=== PATIENT | male | born 1950 | race Caucasian/White ===

== ENCOUNTER → 2016-08-30 | Outpatient (CLI) | payer OTHER ==
[2016-08-30 15:22] LABS: BASO % 0.7 % (0.0-1.0); EOS # 0.1 K/mm3 (0.0-0.50); EOS % 1.9 % (0.0-3.0); LARGE UNSTAINED CELL # 0.1 K/mm3 (0.0-0.4); LARGE UNSTAINED CELL % 1.3 % (0.0-4.0); LYMPH # 1.6 K/mm3 (1.5-4.5); LYMPH % 22.3 % (24.0-44.0); MEAN CORPUSCULAR HEMOGLOBIN 29.1 pg (27.0-33.0); MEAN CORPUSCULAR HGB CONC 34.1 g/dl (32.0-36.5); MEAN CORPUSCULAR VOLUME 85.3 fl (80.0-96.0); MONO # 0.4 K/mm3 (0.0-0.8); MONO % 5.3 % (0.0-5.0); NEUTROPHILS # 4.7 K/mm3 (1.8-7.7); NEUTROPHILS % 68.4 % (36.0-66.0); PLATELET COUNT, AUTOMATED 191 k/mm3 (150-450); RED CELL DISTRIBUTION WIDTH 13.3 % (11.5-14.5); WHITE BLOOD COUNT 6.8 K/mm3 (4.0-10.0)
[2016-08-30 15:59] LABS: ALBUMIN 4.2 GM/DL (3.2-5.2); ALKALINE PHOSPHATASE 111 U/L (45-117); ALT/SGPT 21 U/L (12-78); ANION GAP 13 MEQ/L (8-16); AST/SGOT 17 U/L (15-37); BILIRUBIN,TOTAL 0.6 MG/DL (0.2-1.0); BLOOD UREA NITROGEN 20 MG/DL (7-18); CALCIUM LEVEL 8.6 MG/DL (8.8-10.2); CARBON DIOXIDE LEVEL 21 MEQ/L (21-32); CHLORIDE LEVEL 104 MEQ/L (98-107); CREATININE FOR GFR 1.17 MG/DL (0.70-1.30); GLOMERULAR FILTRATION RATE > 60.0 (>49); GLUCOSE, FASTING 103 MG/DL (80-110); POTASSIUM SERUM 4.2 MEQ/L (3.5-5.1); SODIUM LEVEL 138 MEQ/L (136-145); TOTAL PROTEIN 7.2 GM/DL (6.4-8.2)
== END ==
LOC: M WUC 10:29
PROVIDERS: ATTEND Family Medicine
DX: E11.65 Type 2 diabetes mellitus with hyperglycemia (principal)

== ENCOUNTER → 2016-12-02 | Outpatient (CLI) | payer OTHER ==
[2016-12-02 16:52] LABS: ALBUMIN 4.1 GM/DL (3.2-5.2); ALBUMIN/GLOBULIN RATIO 1.24 (1.00-1.93); ALKALINE PHOSPHATASE 107 U/L (45-117); ALT/SGPT 25 U/L (12-78); ANION GAP 6 MEQ/L (8-16); AST/SGOT 17 U/L (15-37); BILIRUBIN,TOTAL 0.6 MG/DL (0.2-1.0); BLOOD UREA NITROGEN 22 MG/DL (7-18); CALCIUM LEVEL 8.7 MG/DL (8.8-10.2); CARBON DIOXIDE LEVEL 26 MEQ/L (21-32); CHLORIDE LEVEL 103 MEQ/L (98-107); CHOLESTEROL LEVEL 118 MG/DL (<200); CREATININE FOR GFR 1.23 MG/DL (0.70-1.30); GLOMERULAR FILTRATION RATE > 60.0 (>49); GLUCOSE, FASTING 154 MG/DL (80-110); POTASSIUM SERUM 4.4 MEQ/L (3.5-5.1); SODIUM LEVEL 135 MEQ/L (136-145); TOTAL PROTEIN 7.4 GM/DL (6.4-8.2); TRIGLYCERIDES LEVEL 128 MG/DL (<150)
[2016-12-02 16:59] LABS: VITAMIN B12 LEVEL 429 PG/ML (247-911)
[2016-12-02 17:34] LABS: BASO % 0.7 % (0.0-1.0); EOS # 0.1 K/mm3 (0.0-0.50); EOS % 1.4 % (0.0-3.0); LARGE UNSTAINED CELL # 0.1 K/mm3 (0.0-0.4); LYMPH # 1.4 K/mm3 (1.5-4.5); LYMPH % 19.7 % (24.0-44.0); MEAN CORPUSCULAR HEMOGLOBIN 30.2 pg (27.0-33.0); MEAN CORPUSCULAR HGB CONC 34.6 g/dl (32.0-36.5); MEAN CORPUSCULAR VOLUME 87.2 fl (80.0-96.0); MONO # 0.3 K/mm3 (0.0-0.8); MONO % 4.2 % (0.0-5.0); NEUTROPHILS # 5.2 K/mm3 (1.8-7.7); PLATELET COUNT, AUTOMATED 182 k/mm3 (150-450); RED CELL DISTRIBUTION WIDTH 14.5 % (11.5-14.5); WHITE BLOOD COUNT 7.2 K/mm3 (4.0-10.0)
== END ==
LOC: M WUC 11:48
PROVIDERS: ATTEND Family Medicine
DX: E11.65 Type 2 diabetes mellitus with hyperglycemia (principal); E78.00 Pure hypercholesterolemia, unspecified; I10 Essential (primary) hypertension; R20.2 Paresthesia of skin

== ENCOUNTER → 2017-03-03 | Outpatient (CLI) | payer OTHER ==
[2017-03-03 09:38] LABS: ANION GAP 8 MEQ/L (8-16); BLOOD UREA NITROGEN 21 MG/DL (7-18); CALCIUM LEVEL 8.2 MG/DL (8.8-10.2); CARBON DIOXIDE LEVEL 23 MEQ/L (21-32); CHLORIDE LEVEL 107 MEQ/L (98-107); GLOMERULAR FILTRATION RATE > 60.0 (>49); GLUCOSE, FASTING 144 MG/DL (80-110); POTASSIUM SERUM 4.5 MEQ/L (3.5-5.1); SODIUM LEVEL 138 MEQ/L (136-145)
== END ==
LOC: M WUC 08:07
PROVIDERS: ATTEND Physician Assistant
DX: E11.65 Type 2 diabetes mellitus with hyperglycemia (principal)

== ENCOUNTER → 2017-06-01 | Outpatient (CLI) | payer OTHER ==
[2017-06-01 12:56] LABS: ALBUMIN 3.8 GM/DL (3.2-5.2); ALBUMIN/GLOBULIN RATIO 1.23 (1.00-1.93); ALKALINE PHOSPHATASE 100 U/L (45-117); ALT/SGPT 20 U/L (12-78); ANION GAP 10 MEQ/L (8-16); AST/SGOT 14 U/L (7-37); BILIRUBIN,TOTAL 0.7 MG/DL (0.2-1.0); BLOOD UREA NITROGEN 18 MG/DL (7-18); CALCIUM LEVEL 8.6 MG/DL (8.8-10.2); CARBON DIOXIDE LEVEL 26 MEQ/L (21-32); CHLORIDE LEVEL 100 MEQ/L (98-107); CHOLESTEROL LEVEL 101 MG/DL (<200); CREATININE FOR GFR 1.24 MG/DL (0.70-1.30); GLOMERULAR FILTRATION RATE > 60.0 (>49); GLUCOSE, FASTING 195 MG/DL (80-110); POTASSIUM SERUM 4.7 MEQ/L (3.5-5.1); SODIUM LEVEL 136 MEQ/L (136-145); TOTAL PROTEIN 6.9 GM/DL (6.4-8.2); TRIGLYCERIDES LEVEL 156 MG/DL (<150)
[2017-06-01 13:00] LABS: BASO # 0.1 10^3/uL (0.0-0.2); BASO % 0.8 % (0.0-1.0); EOS # 0.2 10^3/uL (0.0-0.50); IMMATURE GRANULOCYTE % 0.6 % (0-0); LYMPH # 1.1 10^3/uL (1.5-4.5); LYMPH % 17.9 % (24.0-44.0); MEAN CORPUSCULAR HEMOGLOBIN 29.4 pg (27.0-33.0); MEAN CORPUSCULAR HGB CONC 33.8 g/dl (32.0-36.5); MONO # 0.4 10^3/uL (0.0-0.8); NEUTROPHILS # 4.5 10^3/uL (1.8-7.7); NEUTROPHILS % 71.7 % (36.0-66.0); PLATELET COUNT, AUTOMATED 175 10^3/uL (150-450); RED CELL DISTRIBUTION WIDTH 13.1 % (11.5-14.5); WHITE BLOOD COUNT 6.3 10^3/uL (4.0-10.0)
== END ==
LOC: M WUC 08:16
PROVIDERS: ATTEND Family Medicine
DX: E11.9 Type 2 diabetes mellitus without complications (principal); E78.00 Pure hypercholesterolemia, unspecified

== ENCOUNTER → 2017-08-29 | Outpatient (CLI) | payer OTHER ==
[2017-08-29 12:36] LABS: ANION GAP 9 MEQ/L (8-16); BLOOD UREA NITROGEN 20 MG/DL (7-18); CALCIUM LEVEL 8.7 MG/DL (8.8-10.2); CARBON DIOXIDE LEVEL 24 MEQ/L (21-32); CHLORIDE LEVEL 103 MEQ/L (98-107); CREATININE FOR GFR 1.07 MG/DL (0.70-1.30); GLOMERULAR FILTRATION RATE > 60.0 (>49); GLUCOSE, FASTING 152 MG/DL (70-100); POTASSIUM SERUM 4.8 MEQ/L (3.5-5.1); SODIUM LEVEL 136 MEQ/L (136-145)
[2017-08-29 12:55] LABS: ESTIMATED AVERAGE GLUCOSE 146 MG/DL (60-110); HEMOGLOBIN A1c 6.7 %
== END ==
LOC: M WUC 08:43
DX: E11.65 Type 2 diabetes mellitus with hyperglycemia (principal)
CPT/HCPCS: 83036

== ENCOUNTER → 2018-03-12 | Outpatient (CLI) | payer MEDICARE, OTHER ==
[2018-03-12 22:28] LABS: ALBUMIN 3.9 GM/DL (3.2-5.2); ALKALINE PHOSPHATASE 106 U/L (45-117); ALT/SGPT 24 U/L (12-78); ANION GAP 12 MEQ/L (8-16); AST/SGOT 15 U/L (7-37); BILIRUBIN,TOTAL 0.7 MG/DL (0.2-1.0); BLOOD UREA NITROGEN 21 MG/DL (7-18); CALCIUM LEVEL 8.9 MG/DL (8.8-10.2); CARBON DIOXIDE LEVEL 21 MEQ/L (21-32); CHLORIDE LEVEL 102 MEQ/L (98-107); CREATININE FOR GFR 1.15 MG/DL (0.70-1.30); FREE T4 0.98 NG/DL (0.76-1.46); GLOMERULAR FILTRATION RATE > 60.0 (>49); GLUCOSE, FASTING 110 MG/DL (70-100); POTASSIUM SERUM 4.9 MEQ/L (3.5-5.1); SODIUM LEVEL 135 MEQ/L (136-145); TOTAL PROTEIN 7.1 GM/DL (6.4-8.2); TRIGLYCERIDES LEVEL 136 MG/DL (<150)
[2018-03-12 23:32] LABS: CHOLESTEROL LEVEL 114 MG/DL (<200)
[2018-03-12 23:33] LABS: ALBUMIN/GLOBULIN RATIO 1.22 (1.00-1.93); CHOLESTEROL RISK RATIO 3.562 (<5); HDL CHOLESTEROL 32 MG/DL (>40); LDL CHOLESTEROL 54.8 MG/DL (<100); NON-HDL-C 82 MG/DL
[2018-03-13 01:33] LABS: ESTIMATED AVERAGE GLUCOSE 140 MG/DL (60-110); HEMOGLOBIN A1c 6.5 %
== END ==
LOC: M WUC 08:44
DX: E66.01 Morbid (severe) obesity due to excess calories (principal); E78.00 Pure hypercholesterolemia, unspecified; Z79.899 Other long term (current) drug therapy
CPT/HCPCS: 84443

== ENCOUNTER → 2018-06-08 | Outpatient (CLI) | payer MEDICARE, OTHER ==
[2018-06-08 10:57] LABS: BASO # 0.1 10^3/uL (0.0-0.2); BASO % 0.7 % (0.0-1.0); EOS # 0.2 10^3/uL (0.0-0.50); EOS % 2.2 % (0.0-3.0); HEMATOCRIT 49.3 % (42.0-52.0); IMMATURE GRANULOCYTE % 0.4 % (0-3.0); LYMPH # 1.3 10^3/uL (1.5-4.5); LYMPH % 15.4 % (24.0-44.0); MEAN CORPUSCULAR HEMOGLOBIN 29.6 pg (27.0-33.0); MEAN CORPUSCULAR HGB CONC 34.5 g/dl (32.0-36.5); MEAN CORPUSCULAR VOLUME 85.7 fl (80.0-96.0); MONO # 0.5 10^3/uL (0.0-0.8); MONO % 6.5 % (0.0-5.0); NEUTROPHILS # 6.1 10^3/uL (1.8-7.7); NEUTROPHILS % 74.8 % (36.0-66.0); PLATELET COUNT, AUTOMATED 170 10^3/uL (150-450); RED BLOOD COUNT 5.75 10^6/uL (4.30-6.10); RED CELL DISTRIBUTION WIDTH 12.8 % (11.5-14.5); WHITE BLOOD COUNT 8.2 10^3/uL (4.0-10.0)
[2018-06-08 11:13] LABS: ALBUMIN 3.8 GM/DL (3.2-5.2); ALBUMIN/GLOBULIN RATIO 1.19 (1.00-1.93); ALKALINE PHOSPHATASE 105 U/L (45-117); ALT/SGPT 19 U/L (12-78); ANION GAP 10 MEQ/L (8-16); AST/SGOT 13 U/L (7-37); BILIRUBIN,TOTAL 0.7 MG/DL (0.2-1.0); BLOOD UREA NITROGEN 24 MG/DL (7-18); CALCIUM LEVEL 8.3 MG/DL (8.8-10.2); CARBON DIOXIDE LEVEL 23 MEQ/L (21-32); CHLORIDE LEVEL 103 MEQ/L (98-107); CHOLESTEROL LEVEL 114 MG/DL (<200); CREATININE FOR GFR 1.19 MG/DL (0.70-1.30); FREE T4 1.07 NG/DL (0.76-1.46); GLOMERULAR FILTRATION RATE > 60.0 (>49); GLUCOSE, FASTING 141 MG/DL (70-100); HDL CHOLESTEROL 30 MG/DL (>40); LDL CHOLESTEROL 57 MG/DL (<100); NON-HDL-C 84 MG/DL; POTASSIUM SERUM 4.8 MEQ/L (3.5-5.1); SODIUM LEVEL 136 MEQ/L (136-145); TRIGLYCERIDES LEVEL 135 MG/DL (<150)
[2018-06-08 11:19] LABS: ESTIMATED AVERAGE GLUCOSE 163 MG/DL (60-110); HEMOGLOBIN A1c 7.3 %
[2018-06-08 11:41] LABS: MALB URINE SIEMENS 9.2 MG/L
[2018-06-09 14:13] LABS: PSA TOTAL 0.2 ng/mL (0.0-4.0)
== END ==
LOC: M WUC 08:43
DX: E11.9 Type 2 diabetes mellitus without complications (principal); E78.00 Pure hypercholesterolemia, unspecified; I10 Essential (primary) hypertension; F52.21 Male erectile disorder; R35.0 Frequency of micturition
CPT/HCPCS: 84443

== ENCOUNTER → 2018-09-03 | Outpatient (CLI) | payer MEDICARE, OTHER ==
[2018-09-03 10:20] LABS: HEMOGLOBIN A1c 7.2 %
[2018-09-03 10:33] LABS: BLOOD UREA NITROGEN 21 MG/DL (7-18); CALCIUM LEVEL 7.9 MG/DL (8.8-10.2); CARBON DIOXIDE LEVEL 24 MEQ/L (21-32); CHLORIDE LEVEL 104 MEQ/L (98-107); CREATININE FOR GFR 1.16 MG/DL (0.70-1.30); GLOMERULAR FILTRATION RATE > 60.0 (>49); GLUCOSE, FASTING 132 MG/DL (70-100); POTASSIUM SERUM 4.7 MEQ/L (3.5-5.1); SODIUM LEVEL 137 MEQ/L (136-145)
== END ==
LOC: M WUC 08:03
PROVIDERS: ATTEND Physician Assistant
DX: Z00.00 Encounter for general adult medical examination without abnormal findings (principal); E11.40 Type 2 diabetes mellitus with diabetic neuropathy, unspecified; Z11.59 Encounter for screening for other viral diseases
CPT/HCPCS: 36415; 80048; 83036; G0472

== ENCOUNTER → 2018-12-07 | Outpatient (CLI) | payer MEDICARE, OTHER ==
[2018-12-07 12:47] LABS: ALT/SGPT 25 U/L (12-78); BILIRUBIN,TOTAL 0.7 MG/DL (0.2-1.0); BLOOD UREA NITROGEN 31 MG/DL (7-18); CALCIUM LEVEL 8.9 MG/DL (8.8-10.2); CARBON DIOXIDE LEVEL 24 MEQ/L (21-32); CHLORIDE LEVEL 104 MEQ/L (98-107); CHOLESTEROL LEVEL 111 MG/DL (<200); CHOLESTEROL RISK RATIO 3.964 (<5); CREATININE FOR GFR 1.18 MG/DL (0.70-1.30); GLOMERULAR FILTRATION RATE > 60.0 (>49); GLUCOSE, FASTING 128 MG/DL (70-100); HDL CHOLESTEROL 28 MG/DL (>40); LDL CHOLESTEROL 57 MG/DL (<100); NON-HDL-C 83 MG/DL; POTASSIUM SERUM 4.6 MEQ/L (3.5-5.1); SODIUM LEVEL 136 MEQ/L (136-145); TOTAL PROTEIN 6.9 GM/DL (6.4-8.2); TRIGLYCERIDES LEVEL 132 MG/DL (<150)
[2018-12-07 13:27] LABS: HEMOGLOBIN A1c 7.7 %
== END ==
LOC: M WUC 08:54
PROVIDERS: ATTEND Family Medicine
DX: E11.40 Type 2 diabetes mellitus with diabetic neuropathy, unspecified (principal); I10 Essential (primary) hypertension; E78.00 Pure hypercholesterolemia, unspecified

== ENCOUNTER → 2019-03-06 | Outpatient (CLI) | payer MEDICARE, OTHER ==
[2019-03-06 13:39] LABS: BLOOD UREA NITROGEN 16 MG/DL (7-18); CARBON DIOXIDE LEVEL 24 MEQ/L (21-32); CHLORIDE LEVEL 103 MEQ/L (98-107); CREATININE FOR GFR 1.19 MG/DL (0.70-1.30); GLOMERULAR FILTRATION RATE > 60.0 (>49); GLUCOSE, FASTING 167 MG/DL (70-100); POTASSIUM SERUM 4.2 MEQ/L (3.5-5.1); SODIUM LEVEL 135 MEQ/L (136-145)
[2019-03-06 14:22] LABS: HEMOGLOBIN A1c 7.2 %
== END ==
LOC: M WUC 08:35
PROVIDERS: ATTEND Physician Assistant
DX: E11.40 Type 2 diabetes mellitus with diabetic neuropathy, unspecified (principal)

== ENCOUNTER → 2019-03-26 | Outpatient (CLI) | payer MEDICARE, OTHER ==
--- NOTE | 2019-03-26 14:32 | REP ---
Bilateral lower extremity arterial Doppler duplex ultrasound: Right lower extremity: Brachial artery peak systole: 130 mmHg. Dorsalis pedis peak systole: 150 mmHg. SALES ADVISORY MANAGER peak systole: 170 mmHg. JERONIMO: 1.25 Peak Systolic Phasicity Velocity ASSOCIATE DIRECTOR DATA & ANALYTICS 75 triphasic Profunda 69 triphasic SFA prox 83 triphasic SFA mid 69 triphasic SFA dist 73 triphasic Pop 52 triphasic BUSTER prox 55 triphasic Tib/P tr 60 triphasic SALES ADVISORY MANAGER pr 52 triphasic SALES ADVISORY MANAGER dst 73 triphasic BUSTER dst 59 triphasic Left lower extremity: Brachial artery peak systole: 135 mmHg. Dorsalis pedis peak systole: 110 mmHg. SALES ADVISORY MANAGER peak systole: 160 mmHg. JERONIMO: 1.19 Peak Systolic Phasicity Velocity ASSOCIATE DIRECTOR DATA & ANALYTICS 100 triphasic Profunda 72 triphasic SFA prox 89 triphasic SFA mid 84 triphasic SFA dist 63 triphasic Pop 68 biphasic BUSTER prox 60 triphasic Tib/P tr 67 triphasic SALES ADVISORY MANAGER pr 52 triphasic SALES ADVISORY MANAGER dst 88 triphasic BUSTER dst 43 triphasic There is no significant stenosis, however, inflow in the right leg is decreased compared to the left. The ABIs may not be accurate because of calcified vessels/diabetes. Electronically Signed by Hugo Sanchez MD 03/26/2019 02:23 P
== END ==
LOC: M RAD 12:16
PROVIDERS: ATTEND Physician Assistant
DX: E11.621 Type 2 diabetes mellitus with foot ulcer (principal); L97.522 Non-pressure chronic ulcer of other part of left foot with fat layer exposed; L97.919 Non-pressure chronic ulcer of unspecified part of right lower leg with unspecified severity; I87.331 Chronic venous hypertension (idiopathic) with ulcer and inflammation of right lower extremity

== ENCOUNTER → 2019-05-03 | Outpatient (REF) | payer MEDICARE, OTHER | LOC: M LAB REF 10:33 | PROVIDERS: ATTEND Family Medicine | DX: C44.329 Squamous cell carcinoma of skin of other parts of face (principal) ==

== ENCOUNTER → 2019-05-20 | Outpatient (CLI) | payer MEDICARE, OTHER ==
[~2019-05-20] MED LIST: ALEV220T22 PO; ASPI81TA85 PO; ATOR40TA75 PO; FARX1TAB3 PO; JANU100T PO; LISI10TA4 PO; PROT0.1O EX; RANI150T PO; TRIA37.53 PO
[2019-05-20 10:02] LABS: HEMATOCRIT 51.2 % (42.0-52.0); HEMOGLOBIN 17.4 g/dl (13.5-17.5); MEAN CORPUSCULAR HEMOGLOBIN 29.4 pg (27.0-33.0); MEAN CORPUSCULAR VOLUME 86.5 fl (80.0-96.0); PLATELET COUNT, AUTOMATED 161 10^3/uL (150-450); RED BLOOD COUNT 5.92 10^6/uL (4.30-6.10); WHITE BLOOD COUNT 9.1 10^3/uL (4.0-10.0)
--- NOTE | 2019-05-20 10:14 | REP ---
CHEST X-RAY: Two views. HISTORY: Squamous cell carcinoma of the skin. No comparison chest x-ray. FINDINGS: The lungs are symmetrically aerated and clear. The pleural angles are sharp. Heart size is normal. The aorta is calcific and tortuous. There is widening of the superior mediastinum and some narrowing of the trachea is suspected bilaterally. The trachea is not displaced. This may be thyroid enlargement or other mediastinal process. Consider chest CT study. No bony abnormality. Exam is otherwise unremarkable. IMPRESSION: Widened mediastinum question tracheal narrowing. Recommend chest CT study, preferably with IV contrast. Otherwise no acute disease. Electronically Signed by Terrance Giang MD 05/20/2019 12:45 P
[2019-05-20 10:30] LABS: BLOOD UREA NITROGEN 20 MG/DL (7-18); CARBON DIOXIDE LEVEL 22 MEQ/L (21-32); CHLORIDE LEVEL 104 MEQ/L (98-107); CREATININE FOR GFR 1.25 MG/DL (0.70-1.30); GLOMERULAR FILTRATION RATE > 60.0 (>49); GLUCOSE, FASTING 185 MG/DL (70-100); POTASSIUM SERUM 4.7 MEQ/L (3.5-5.1); SODIUM LEVEL 135 MEQ/L (136-145)
== END ==
LOC: M LAB 09:27
PROVIDERS: ATTEND Plastic Surgery Surgery of the Hand
DX: C44.329 Squamous cell carcinoma of skin of other parts of face (principal)

== ENCOUNTER 2019-05-23 10:20 | Day surgery (SDC) | payer MEDICARE, OTHER ==
[~2019-05-23] VITALS: Ht 182.9 cm; Wt 129.7 kg
[~2019-05-23 10:20] MED LIST changes: +LIDOCAINE 1% MDV 20ML VIAL SQ PRN; +LIDOCAINE 2% INJ 100 MG/5 ML SDV (FOR ANES.) As Ordered ONE; +LR 1,000 ML IV ONE; +MIDAZOLAM INJ 2 MG/2 ML VIAL (J2250) As Ordered ONE; +ONDANSETRON 4MG/2ML VIAL (J2405) As Ordered ONE; +POVIDONE-IODINE 5% OPHTH PREP SOL 30ML As Ordered ONE; +PROPOFOL 200 MG/20 ML VIAL As Ordered ONE; +ceFAZolin SOD 1 GM in D5W MINI-BAG PLUS 50 ML IV ONE; +dexameTHASONE 4 MG/ML 1ML VIAL (J1100) As Ordered ONE; +fentaNYL 100 MCG/2 ML INJECTION (J3010) As Ordered ONE
[2019-05-23] MEDS ORDERED: BACITRACIN OINT 30GM As Ordered ONE (11:11)
[2019-05-23] MEDS ORDERED: LIDOCAINE W/EPINEPHRINE 1% 20ML VIAL As Ordered ONE (11:19)
--- NOTE | 2019-05-23 12:44 | POST-OPPD ---
Postoperative Procedure Note Date Of Procedure: May 23, 2019 PREOPERATIVE DIAGNOSIS: Right episcopal malignant lesion POSTOPERATIVE DIAGNOSIS: same FINDINGS: Right episcopal malignant lesion 1x0.6cm PROCEDURE: Excision malignant lesion. SURGEON: Dr Davis PAINTING AND COATING WORKER: Dr West ANESTHESIA: Local with sedation SPECIMENS: Right episcopal lesion FS ESTIMATED BLOOD LOSS: 1 cc REPLACED: none DRAINS: none COMPLICATIONS: none POSTOPERATIVE CONDITION: stable PERRI DAVIS DO May 23, 2019 12:44
[2019-05-23 13:10] VITALS: BP 160/94
--- NOTE | 2019-05-25 14:41 | RO ---
DATE OF PROCEDURE: 05/23/2019 PREPROCEDURE DIAGNOSIS: Right temporal malignant lesion. POSTPROCEDURE DIAGNOSIS: Right temporal malignant lesion. PROCEDURE: Excision malignant lesion. SURGEON: Dr. Oma Melo. GRADES 1 THROUGH 5 TEACHER: Dr. Cline. ANESTHESIA: Local with sedation. SPECIMENS SENT: Right temporal lesion frozen section. ESTIMATED BLOOD LOSS: 1 mL. FLUID REPLACEMENT: None needed. DRAINS: None. COMPLICATIONS: FINDINGS: Right temporal malignant lesion 1 x 0.6 cm in diameter. DESCRIPTION OF PROCEDURE: This is a 68-year-old male who had a biopsy on his right uatsdin confirming squamous cell carcinoma. Patient presented to the office for a complete excision. All risks and benefits and alternatives discussed with the patient. He prefers to have the procedure done in the operating room with sedation. Informed consent was confirmed. On the day of surgery, the patient was marked for the lesion and it measured 1. X 0.6 cm right now. Then he was brought into the operating room, placed in the supine position. Preoperative antibiotics were given and sequential stockings placed on the lower calf. He was prepped and draped in the usual sterile fashion. Local anesthesia was infiltrated in the area, 1% lidocaine with epinephrine. Then the margins of 4 mm were outlined. After the numbing effect of lidocaine was insured, we made an elliptical incision horizontally oriented encompassing all of the margins. Full thickness excision was made. A suture marked 12-o'clock position at the specimen and was sent to pathology. After confirmation of clear margins was received, the edges were undermined and then we were able to close it without tension. Closure was done in layers with interrupted #4-0 Monocryl sutures and #5-0 plain gut sutures. Total incision at this point was 1.6 cm. Then Steri-Strips were applied. Patient tolerated the procedure well. He was transferred to the recovery room in stable condition, completely awake.
== END 2019-05-23 13:12 | disposition home or self-care (01) ==
LOC: M SDC 10:20
PROVIDERS: ATTEND Plastic Surgery Surgery of the Hand
DX: C44.329 Squamous cell carcinoma of skin of other parts of face (principal); E11.9 Type 2 diabetes mellitus without complications; E78.5 Hyperlipidemia, unspecified; K21.9 Gastro-esophageal reflux disease without esophagitis; G47.30 Sleep apnea, unspecified; Z79.82 Long term (current) use of aspirin; Z79.899 Other long term (current) drug therapy
CPT/HCPCS: 11641; 88305; 88331; J0690; J2250; J2405; J3010

== ENCOUNTER → 2019-06-10 | Outpatient (CLI) | payer MEDICARE, OTHER ==
[~2019-06-10] MED LIST changes: -LIDOCAINE 1% MDV 20ML VIAL SQ PRN; -LIDOCAINE 2% INJ 100 MG/5 ML SDV (FOR ANES.) As Ordered ONE; -LR 1,000 ML IV ONE; -MIDAZOLAM INJ 2 MG/2 ML VIAL (J2250) As Ordered ONE; -ONDANSETRON 4MG/2ML VIAL (J2405) As Ordered ONE; -POVIDONE-IODINE 5% OPHTH PREP SOL 30ML As Ordered ONE; -PROPOFOL 200 MG/20 ML VIAL As Ordered ONE; -ceFAZolin SOD 1 GM in D5W MINI-BAG PLUS 50 ML IV ONE; -dexameTHASONE 4 MG/ML 1ML VIAL (J1100) As Ordered ONE; -fentaNYL 100 MCG/2 ML INJECTION (J3010) As Ordered ONE
[2019-06-10 09:20] LABS: BASO # 0.1 10^3/uL (0.0-0.2); BASO % 0.7 % (0.0-1.0); EOS # 0.2 10^3/uL (0.0-0.5); EOS % 2.3 % (0.0-3.0); HEMATOCRIT 50.2 % (42.0-52.0); LYMPH # 1.4 10^3/uL (1.5-5.0); LYMPH % 18.7 % (24.0-44.0); MEAN CORPUSCULAR HEMOGLOBIN 29.3 pg (27.0-33.0); MEAN CORPUSCULAR HGB CONC 33.9 g/dl (32.0-36.5); MEAN CORPUSCULAR VOLUME 86.4 fl (80.0-96.0); MONO # 0.4 10^3/uL (0.0-0.8); MONO % 5.7 % (0.0-5.0); NEUTROPHILS # 5.3 10^3/uL (1.5-8.5); NEUTROPHILS % 72.2 % (36.0-66.0); PLATELET COUNT, AUTOMATED 162 10^3/uL (150-450); RED BLOOD COUNT 5.81 10^6/uL (4.30-6.10); WHITE BLOOD COUNT 7.3 10^3/uL (4.0-10.0)
[2019-06-10 09:53] LABS: ALBUMIN 3.9 GM/DL (3.2-5.2); ALT/SGPT 24 U/L (12-78); BILIRUBIN,TOTAL 0.7 MG/DL (0.2-1.0); BLOOD UREA NITROGEN 16 MG/DL (7-18); CALCIUM LEVEL 8.7 MG/DL (8.8-10.2); CARBON DIOXIDE LEVEL 24 MEQ/L (21-32); CHLORIDE LEVEL 104 MEQ/L (98-107); CHOLESTEROL LEVEL 117 MG/DL (<200); CHOLESTEROL RISK RATIO 3.656 (<5); CREATININE FOR GFR 1.19 MG/DL (0.70-1.30); GLOMERULAR FILTRATION RATE > 60.0 (>49); GLUCOSE, FASTING 176 MG/DL (70-100); HDL CHOLESTEROL 32 MG/DL (>40); LDL CHOLESTEROL 64 MG/DL (<100); NON-HDL-C 85 MG/DL; POTASSIUM SERUM 4.6 MEQ/L (3.5-5.1); SODIUM LEVEL 135 MEQ/L (136-145); TOTAL PROTEIN 7.2 GM/DL (6.4-8.2); TRIGLYCERIDES LEVEL 103 MG/DL (<150)
[2019-06-10 10:01] LABS: MALB URINE SIEMENS 10.1 MG/L; MAU/CREAT RATIO 7.5 MCG/MG (0.0-30.0)
[2019-06-10 10:51] LABS: HEMOGLOBIN A1c 8.2 %
[2019-06-11 14:07] LABS: PSA TOTAL 0.2 ng/mL (0.0-4.0)
== END ==
LOC: M WUC 08:28
PROVIDERS: ATTEND Family Medicine
DX: E11.40 Type 2 diabetes mellitus with diabetic neuropathy, unspecified (principal); E78.00 Pure hypercholesterolemia, unspecified; F52.21 Male erectile disorder

== ENCOUNTER → 2019-09-10 | Outpatient (CLI) | payer MEDICARE, OTHER ==
[2019-09-10 12:51] LABS: BLOOD UREA NITROGEN 27 MG/DL (7-18); CALCIUM LEVEL 8.5 MG/DL (8.8-10.2); CARBON DIOXIDE LEVEL 22 MEQ/L (21-32); CHLORIDE LEVEL 102 MEQ/L (98-107); CREATININE FOR GFR 1.19 MG/DL (0.70-1.30); GLOMERULAR FILTRATION RATE > 60.0 (>49); GLUCOSE, FASTING 201 MG/DL (70-100); POTASSIUM SERUM 4.5 MEQ/L (3.5-5.1); SODIUM LEVEL 132 MEQ/L (136-145)
[2019-09-10 19:59] LABS: HEMOGLOBIN A1c 8.3 %
== END ==
LOC: M WUC 08:52
PROVIDERS: ATTEND Physician Assistant
DX: E11.9 Type 2 diabetes mellitus without complications (principal)

== ENCOUNTER → 2019-12-13 | Outpatient (CLI) | payer MEDICARE, OTHER ==
[2019-12-13 11:50] LABS: BASO # 0.1 10^3/uL (0.0-0.2); BASO % 0.8 % (0.0-1.0); EOS # 0.1 10^3/uL (0.0-0.5); EOS % 1.7 % (0.0-3.0); HEMATOCRIT 49.3 % (42.0-52.0); HEMOGLOBIN 16.6 g/dl (13.5-17.5); LYMPH # 1.5 10^3/uL (1.5-5.0); LYMPH % 19.4 % (24.0-44.0); MEAN CORPUSCULAR HGB CONC 33.7 g/dl (32.0-36.5); MONO # 0.5 10^3/uL (0.0-0.8); MONO % 5.8 % (0.0-5.0); NEUTROPHILS # 5.6 10^3/uL (1.5-8.5); NEUTROPHILS % 71.7 % (36.0-66.0); PLATELET COUNT, AUTOMATED 162 10^3/uL (150-450); RED BLOOD COUNT 5.73 10^6/uL (4.30-6.10); WHITE BLOOD COUNT 7.7 10^3/uL (4.0-10.0)
[2019-12-13 11:59] LABS: ALBUMIN 3.8 GM/DL (3.2-5.2); ALT/SGPT 23 U/L (12-78); BLOOD UREA NITROGEN 19 MG/DL (7-18); CALCIUM LEVEL 8.8 MG/DL (8.8-10.2); CARBON DIOXIDE LEVEL 24 MEQ/L (21-32); CHLORIDE LEVEL 104 MEQ/L (98-107); CHOLESTEROL LEVEL 131 MG/DL (<200); CHOLESTEROL RISK RATIO 4.366 (<5); CREATININE FOR GFR 1.07 MG/DL (0.70-1.30); GLOMERULAR FILTRATION RATE > 60.0 (>49); GLUCOSE, FASTING 141 MG/DL (70-100); HDL CHOLESTEROL 30 MG/DL (>40); LDL CHOLESTEROL 78 MG/DL (<100); NON-HDL-C 101 MG/DL; POTASSIUM SERUM 4.3 MEQ/L (3.5-5.1); SODIUM LEVEL 134 MEQ/L (136-145); TOTAL PROTEIN 7.1 GM/DL (6.4-8.2); TRIGLYCERIDES LEVEL 116 MG/DL (<150)
[2019-12-13 12:22] LABS: MALB URINE SIEMENS 20.8 MG/L; MAU/CREAT RATIO 14.8 MCG/MG (0.0-30.0)
[2019-12-13 13:52] LABS: HEMOGLOBIN A1c 7.9 %
== END ==
LOC: M WUC 09:36
PROVIDERS: ATTEND Family Medicine
DX: E11.65 Type 2 diabetes mellitus with hyperglycemia (principal); E78.00 Pure hypercholesterolemia, unspecified

== ENCOUNTER → 2020-03-13 | Outpatient (CLI) | payer MEDICARE, OTHER ==
[~2020-03-13] MED LIST changes: -ASPI81TA85 PO; +ASPI81TA86 PO
[2020-03-13 13:13] LABS: BLOOD UREA NITROGEN 22 MG/DL (7-18); CALCIUM LEVEL 7.7 MG/DL (8.8-10.2); CARBON DIOXIDE LEVEL 20 MEQ/L (21-32); CHLORIDE LEVEL 103 MEQ/L (98-107); CREATININE FOR GFR 1.19 MG/DL (0.70-1.30); FREE T4 1.05 NG/DL (0.76-1.46); GLOMERULAR FILTRATION RATE > 60.0 (>49); GLUCOSE, FASTING 269 MG/DL (70-100); POTASSIUM SERUM 4.3 MEQ/L (3.5-5.1); SODIUM LEVEL 131 MEQ/L (136-145)
[2020-03-15 06:37] LABS: PSA TOTAL 0.1 ng/mL (0.0-4.0)
== END ==
LOC: M WUC 08:45
PROVIDERS: ATTEND Physician Assistant
DX: E11.65 Type 2 diabetes mellitus with hyperglycemia (principal); E78.00 Pure hypercholesterolemia, unspecified; R97.20 Elevated prostate specific antigen [PSA]

== ENCOUNTER → 2020-06-10 | Outpatient (CLI) | payer MEDICARE, OTHER ==
[2020-06-10 12:00] LABS: BASO # 0.1 10^3/uL (0.0-0.2); BASO % 0.7 % (0.0-1.0); EOS # 0.1 10^3/uL (0.0-0.5); EOS % 1.9 % (0.0-3.0); HEMATOCRIT 51.8 % (42.0-52.0); HEMOGLOBIN 17.3 g/dl (13.5-17.5); LYMPH # 1.3 10^3/uL (1.5-5.0); LYMPH % 17.9 % (24.0-44.0); MEAN CORPUSCULAR HEMOGLOBIN 29.4 pg (27.0-33.0); MEAN CORPUSCULAR HGB CONC 33.4 g/dl (32.0-36.5); MEAN CORPUSCULAR VOLUME 87.9 fl (80.0-96.0); MONO # 0.5 10^3/uL (0.0-0.8); MONO % 6.4 % (0.0-5.0); NEUTROPHILS # 5.3 10^3/uL (1.5-8.5); NEUTROPHILS % 72.7 % (36.0-66.0); PLATELET COUNT, AUTOMATED 160 10^3/uL (150-450); RED BLOOD COUNT 5.89 10^6/uL (4.30-6.10); WHITE BLOOD COUNT 7.3 10^3/uL (4.0-10.0)
[2020-06-10 12:42] LABS: ALBUMIN 3.9 GM/DL (3.2-5.2); ALT/SGPT 23 U/L (12-78); BILIRUBIN,TOTAL 0.9 MG/DL (0.2-1.0); BLOOD UREA NITROGEN 15 MG/DL (7-18); CALCIUM LEVEL 9.1 MG/DL (8.8-10.2); CARBON DIOXIDE LEVEL 24 MEQ/L (21-32); CHLORIDE LEVEL 105 MEQ/L (98-107); CHOLESTEROL LEVEL 126 MG/DL (<200); CHOLESTEROL RISK RATIO 3.705 (<5); CREATININE FOR GFR 1.13 MG/DL (0.70-1.30); GLOMERULAR FILTRATION RATE > 60.0 (>49); GLUCOSE, FASTING 129 MG/DL (70-100); HDL CHOLESTEROL 34 MG/DL (>40); LDL CHOLESTEROL 72 MG/DL (<100); NON-HDL-C 92 MG/DL; POTASSIUM SERUM 4.5 MEQ/L (3.5-5.1); SODIUM LEVEL 135 MEQ/L (136-145); TOTAL PROTEIN 7.4 GM/DL (6.4-8.2); TRIGLYCERIDES LEVEL 102 MG/DL (<150)
[2020-06-10 13:22] LABS: HEMOGLOBIN A1c 7.8 %
[2020-06-11 23:07] LABS: PSA TOTAL 0.1 ng/mL (0.0-4.0)
== END ==
LOC: M WUC 09:03
PROVIDERS: ATTEND Family Medicine
DX: E11.65 Type 2 diabetes mellitus with hyperglycemia (principal); F52.21 Male erectile disorder; I10 Essential (primary) hypertension

== ENCOUNTER → 2020-07-24 | Outpatient (REF) | payer MEDICARE, OTHER | LOC: M LAB REF 17:31 | PROVIDERS: ATTEND Plastic Surgery Surgery of the Hand | DX: C44.42 Squamous cell carcinoma of skin of scalp and neck (principal) ==

== ENCOUNTER → 2020-09-09 | Outpatient (CLI) | payer MEDICARE, OTHER ==
[~2020-09-09] MED LIST changes: +LISI10TA22 PO; -LISI10TA4 PO
[2020-09-09 10:33] LABS: BLOOD UREA NITROGEN 19 MG/DL (7-18); CALCIUM LEVEL 8.9 MG/DL (8.8-10.2); CARBON DIOXIDE LEVEL 24 MEQ/L (21-32); CHLORIDE LEVEL 101 MEQ/L (98-107); CREATININE FOR GFR 1.08 MG/DL (0.70-1.30); GLOMERULAR FILTRATION RATE > 60.0 (>49); GLUCOSE, FASTING 135 MG/DL (70-100); POTASSIUM SERUM 4.1 MEQ/L (3.5-5.1); SODIUM LEVEL 134 MEQ/L (136-145)
[2020-09-09 20:54] LABS: HEMOGLOBIN A1c 7.1 %
== END ==
LOC: M WUC 08:09
PROVIDERS: ATTEND Physician Assistant
DX: E11.65 Type 2 diabetes mellitus with hyperglycemia (principal)

== ENCOUNTER → 2020-12-15 | Outpatient (CLI) | payer MEDICARE, OTHER ==
[2020-12-15 11:48] LABS: BASO # 0.1 10^3/uL (0.0-0.2); BASO % 0.7 % (0.0-1.0); EOS # 0.1 10^3/uL (0.0-0.5); EOS % 1.7 % (0.0-3.0); HEMATOCRIT 50.9 % (42.0-52.0); LYMPH # 1.3 10^3/uL (1.5-5.0); LYMPH % 15.1 % (24.0-44.0); MEAN CORPUSCULAR HEMOGLOBIN 29.5 pg (27.0-33.0); MEAN CORPUSCULAR HGB CONC 33.4 g/dl (32.0-36.5); MEAN CORPUSCULAR VOLUME 88.4 fl (80.0-96.0); MONO # 0.6 10^3/uL (0.0-0.8); MONO % 7.5 % (2.0-8.0); NEUTROPHILS # 6.3 10^3/uL (1.5-8.5); NEUTROPHILS % 74.5 % (36.0-66.0); PLATELET COUNT, AUTOMATED 169 10^3/uL (150-450); RED BLOOD COUNT 5.76 10^6/uL (4.30-6.10); WHITE BLOOD COUNT 8.5 10^3/uL (4.0-10.0)
[2020-12-15 12:26] LABS: ALBUMIN 3.8 GM/DL (3.2-5.2); ALT/SGPT 18 U/L (12-78); BILIRUBIN,TOTAL 0.8 MG/DL (0.2-1.0); BLOOD UREA NITROGEN 18 MG/DL (7-18); CALCIUM LEVEL 8.5 MG/DL (8.8-10.2); CARBON DIOXIDE LEVEL 22 MEQ/L (21-32); CHLORIDE LEVEL 103 MEQ/L (98-107); CHOLESTEROL LEVEL 112 MG/DL (<200); CHOLESTEROL RISK RATIO 3.612 (<5); CREATININE FOR GFR 1.03 MG/DL (0.70-1.30); GLOMERULAR FILTRATION RATE > 60.0 (>49); GLUCOSE, FASTING 111 MG/DL (70-100); HDL CHOLESTEROL 31 MG/DL (>40); LDL CHOLESTEROL 62 MG/DL (<100); NON-HDL-C 81 MG/DL; POTASSIUM SERUM 4.4 MEQ/L (3.5-5.1); SODIUM LEVEL 134 MEQ/L (136-145); TOTAL PROTEIN 7.2 GM/DL (6.4-8.2); TRIGLYCERIDES LEVEL 97 MG/DL (<150)
[2020-12-15 15:51] LABS: HEMOGLOBIN A1c 6.7 %
== END ==
LOC: M WUC 08:14
PROVIDERS: ATTEND Family Medicine
DX: E11.65 Type 2 diabetes mellitus with hyperglycemia (principal); E78.00 Pure hypercholesterolemia, unspecified

== ENCOUNTER → 2021-03-17 | Outpatient (CLI) | payer MEDICARE, OTHER ==
[2021-03-17 12:31] LABS: BLOOD UREA NITROGEN 17 MG/DL (7-18); CALCIUM LEVEL 9.4 MG/DL (8.8-10.2); CARBON DIOXIDE LEVEL 26 MEQ/L (21-32); CHLORIDE LEVEL 101 MEQ/L (98-107); CREATININE FOR GFR 0.99 MG/DL (0.70-1.30); GLOMERULAR FILTRATION RATE > 60.0 (>49); GLUCOSE, FASTING 115 MG/DL (70-100); POTASSIUM SERUM 4.1 MEQ/L (3.5-5.1); SODIUM LEVEL 133 MEQ/L (136-145)
[2021-03-17 12:55] LABS: HEMOGLOBIN A1c 6.4 %
== END ==
LOC: M WUC 08:07
PROVIDERS: ATTEND Physician Assistant
DX: E11.65 Type 2 diabetes mellitus with hyperglycemia (principal)

== ENCOUNTER 2021-04-26 15:06 | Inpatient (IN) | payer MEDICARE, OTHER ==
[~2021-04-26] VITALS: Ht 182.9 cm; Wt 132.3 kg
[2021-04-26 15:58] LABS: BASO # 0.1 10^3/uL (0.0-0.2); BASO % 0.6 % (0.0-1.0); EOS # 0.1 10^3/uL (0.0-0.5); EOS % 1.2 % (0.0-3.0); HEMATOCRIT 46.2 % (42.0-52.0); HEMOGLOBIN 15.8 g/dl (13.5-17.5); LYMPH # 1.3 10^3/uL (1.5-5.0); LYMPH % 13.3 % (24.0-44.0); MEAN CORPUSCULAR HEMOGLOBIN 29.5 pg (27.0-33.0); MEAN CORPUSCULAR HGB CONC 34.2 g/dl (32.0-36.5); MEAN CORPUSCULAR VOLUME 86.2 fl (80.0-96.0); MONO # 0.5 10^3/uL (0.0-0.8); MONO % 5.3 % (2.0-8.0); NEUTROPHILS # 7.6 10^3/uL (1.5-8.5); NEUTROPHILS % 79.1 % (36.0-66.0); PLATELET COUNT, AUTOMATED 181 10^3/uL (150-450); RED BLOOD COUNT 5.36 10^6/uL (4.30-6.10); WHITE BLOOD COUNT 9.6 10^3/uL (4.0-10.0)
[2021-04-26 16:10] LABS: INR 0.93; PROTHROMBIN TIME 12.8 SECONDS (12.7-14.5)
[2021-04-26 16:11] LABS: PARTIAL THROMBOPLASTIN TIME 29.8 SECONDS (25.9-37.0)
--- OUTSIDE RECORDS SUMMARY | 2021-04-26 16:19 | CCD | Continuity of Care Document ---
Author Author Marino TAPIA D.O Organization Unknown Address [email or web address] [place] [address] Phone [phone] Care Team Providers Care Steel Rule Die Maker Name Role Phone Terrie Tapia D.O. AUTM [phone] [facility] AUTM [phone] [facility] AUTM Problems Active Problems Provider Date Pure hypercholesterolemia Onset: 016 Type II diabetes mellitus uncontrolled Terrie Tapia D.O. Onset: 06/07/2016 Essential hypertension Terrie Tapia D.O. Onset: 12/2015 Actinic keratosis Terrie Tapia D.O. Onset: 2015 Skin sensation disturbance Terrie Tapia D.O. Onset: 09/05/2016 Gastroesophageal reflux disease KAREN Weller Onset: 12/06/2016 Diabetic peripheral neuropathy Terrie Tapia D.O. On set: 03/13/2018 Social History Type Date Description Comments Sex Unknown ETOH Use Occasionally consumes alcohol Tobacco Use Start: Unknown Patient has never smoked Recreational Drug Use Denies Drug Use Smoking Status Reviewed: 03/23/21 Patient has never smoked Exercise Type/Frequency Exercises regularly Sun Exposure Uses sunscreen Seat Belt/Car Seat Always uses seat belt Allergies, Adverse Reactions, Alerts Description No Known Drug Allergies Medications Active Medications SIG Qnty Indications Ordering Provide r Date Rybelsus 14mg Tablets 1 by mouth every day 90tabs Terrie Tapia D.O. 09/16 Losartan Potassium 100mg Tablets Take One Tablet By Mouth Every Day 90tabs Elodia Lemus.OKevin 09/13/2019 Famotidine 20mg Tablets take 1 by mouth twice daily as needed for heartburn. 180tabs K21.9 Aris RomeroO. 09/13/2019 Tacrolimus 0.03% Ointment Apply To Hands Two Times A Day as Needed 30units L30.9 Elodia Lemus.OKevin 12/12/2018 Sildenafil Citrate 100mg Tablets Take 1 Tablet By Mouth 1 Hour Prior To Sexual Activity 18tabs F52.21 Elodia Prince.OKevin 08/30/2018 Atorvastatin Calcium 40mg Tablets Take One Tablet By Mouth Every Evening 90tabs E78.00 Terrie schroeder D.OKevin 09/05/2016 Aspirin Adult Low Dose 81mg Tablet s DR 1 by mouth every day 90tabs Elodia Lemus.OKevin Farxiga 10mg Tablets Take One Tablet By Mouth Every Day 90tabs E11.65 Elodia Lemus.OKevin 06/07 Aleve 220mg Capsules 2 tablets by mouth daily in am Unknown Immunizations Description No Information Available Vital Signs Date Vital Result Comment 03/23/2021 8:55am BP Systolic 134 mmHg BP Diastolic 82 mmHg Height 70.1 inches 5'10.10" Weight 283.00 lb BMI (Body Mass Index) 40.5 kg/m2 Heart Rate 68 /min Respiratory Rate 18 /min Body Temperature 97.8 F O2 % BldC Oximetry 97 % Herminie Body Weight 166 lb 12/17/2020 11:07am BP Systolic 144 mmHg BP Diastolic 78 mmHg Height 70.1 inches 5'10.10" Weight 286.00 lb BMI (Body Mass Index) 40.9 kg/m2 Heart Rate 70 /min Respiratory Rate 18 /min Body Temperature 97.8 F O2 % BldC Oximetry 95 % Herminie Body Weight 166 lb Results Test Acquired Date Facility Test Result H/L Range Note Basic Metabolic Profile 03/17/2021 [facility] Outpatient T lucrecia (Registration) [address] [place] [address] [phone] Glucose, Fasting 115 mg/dL High 70-100 Blood Urea Nitrogen 17 mg/dL Normal 7-18 Creatinine For GFR 0.99 mg/dL Normal 0.70-1.30 Glomerular Filtration Rate > 60.0 Normal >49 1 Sodium Level 133 mEq/L Low 136-145 Potassium Serum 4.1 mEq/L Normal 3.5-5.1 Chloride Level 101 mEq/L Normal 98-107 Carbon Dioxide Level 26 mEq/L Normal 21-32 Anion Gap 6 mEq/L Low 8-16 Calcium Level 9.4 mg/dL Normal 8.8-10.2 Hemoglobin A1c 03/17/2021 [facility] Outpatient Testi ng (Registration) [address] [place] [address] [phone] Hemoglobin A1c 6.4 % Normal 2 Estimated Average Glucose 137 mg/dL High 60-110 Hemoglobin A1c 12/15/[address] [address] [phone] Hemoglobin A1c 6.7 % Normal 3 Estimated Average Glucose 146 mg/dL High 60-110 Lipid Panel 12/15/[address] [address] [phone] Triglycerides Level 97 mg/dL Normal <150 Cholesterol Level 112 mg/dL Normal <200 HDL Cholesterol 31 mg/dL Low >40 LDL Cholesterol 62 mg/dL Normal <100 Non-HDL-C 81 mg/dL Normal Cholesterol Risk Ratio 3.612 Normal <5 Comprehensive Metabolic Profil 12/15/[address] [address] [phone] Glucose, Fasting 111 mg/dL High 70-100 Blood Urea Nitrogen 18 mg/dL Normal 7-18 Creatinine For GFR 1.03 mg/dL Normal 0.70-1.30 Glomerular Filtration Rate > 60.0 Normal >49 4 Sodium Level 134 mEq/L Low 136-145 Potassium Serum 4.4 mEq/L Normal 3.5-5.1 Chloride Level 103 mEq/L Normal 98-107 Carbon Dioxide Level 22 mEq/L Normal 21-32 Anion Gap 9 mEq/L Normal 8-16 Calcium Level 8.5 mg/dL Low 8.8-10.2 Ast/Sgot 12 U/L Normal 7-37 Alt/SGPT 18 U/L Normal 12-78 Alkaline Phosphatase 112 U/L Normal 45-117 Bilirubin,Total 0.8 mg/dL Normal 0.2-1.0 Total Protein 7.2 GM/DL Normal 6.4-8.2 Albumin 3.8 GM/DL Normal 3.2-5.2 Albumin/Globulin Ratio 1.1 Normal CBC With Differential 12/15/2020 [place] [id number] [phone] White Blood Count 8.5 10 Normal 4.0-10.0 Red Blood Count 5.76 10 Normal 4.30-6.10 Hemoglobin 17.0 g/dL Normal 13.5-17.5 Hematocrit 50.9 % Normal 42.0-52.0 Mean Corpuscular Volume 88.4 fl Normal 80.0-96.0 Mean Corpuscular Hemoglobin 29.5 pg Normal 27.0-33.0 Mean Corpuscular HGB Conc 33.4 g/dL Normal 32.0-36.5 Red Cell Distribution Width 13.2 % Normal 11.5-14.5 Platelet Count, Automated 169 10 Normal 150-450 Neutrophils % 74.5 % High 36.0-66.0 Lymph % 15.1 % Low 24.0-44.0 Pender % 7.5 % Normal 2.0-8.0 Eos % 1.7 % Normal 0.0-3.0 Baso % 0.7 % Normal 0.0-1.0 Immature Granulocyte % 0.5 % Normal 0-3.0 Nucleated Red Blood Cell % 0.0 % Normal 0-0 Neutrophils # 6.3 10 Normal 1.5-8.5 Lymph # 1.3 10 Low 1.5-5.0 Pender # 0.6 10 Normal 0.0-0.8 Eos # 0.1 10 Normal 0.0-0.5 Baso # 0.1 10 Normal 0.0-0.2 1 Units are mL/min/1.73 m2 Chronic Kidney Disease Staging per NKF: Stage I & II GFR >=60 Normal to Mildly Decreased Stage III GFR 30-59 Moderately Decreased Stage IV GFR 15-29 Severely Decreased Stage V GFR <15 Very Little GFR Left ESRD GFR <15 on DIRECTOR OF AGRICULTURE 2 REFERENCE RANGES: <=5.6% NORMAL 5.7-6.4% SUGGESTS IMPAIRED GLUCOSE META BOLISM/PREDIABETIC >= 6.5% ABNORMAL 3 REFERENCE RANGES: <=5.6% NORMAL 5.7-6.4% SUGGESTS IMPAIRED GLUCOSE META BOLISM/PREDIABETIC >= 6.5% ABNORMAL 4 Units are mL/min/1.73 m2 Chronic Kidney Disease Staging per NKF: Stage I & II GFR >=60 Normal to Mildly Decreased Stage III GFR 30-59 Moderately Decreased Stage IV GFR 15-29 Severely Decreased Stage V GFR <15 Very Little GFR Left ESRD GFR <15 on DIRECTOR OF AGRICULTURE Procedures Date Code Description Status 03/23/2021 59772 Office/Outpatient Established Mo d MDM 30-39 Min Completed 12/17/2020 48378 Office/Outpatient Established Mo d MDM 30-39 Min Completed Medical Devices Description No Information Available Encounters Type Date Location Provider Dx Diagnosis Office Visit 03/23/2021 9:00a [facility] Aris LemusOKevin E11.9 Type 2 diabetes mellitus wit hout complications E78.00 Pure hypercholesterolemia, u nspecified I10 Essential (primary) hyperten pravin E66.01 Morbid (severe) obesity due to excess calories Z68.41 Body mass index [BMI] 40.0-4 4.9, adult K21.9 Gastro-esophageal reflux dis ease without esophagitis Z79.899 Other half-way (current) dr ug therapy Z79.84 roasterman (current) use of o ral hypoglycemic drugs Z79.82 roasterman (current) use of a spirin F52.21 Male erectile disorder L57.0 Actinic keratosis Office Visit 12/17/2020 11:00a [facility] KAREN Weller E11.65 Type 2 diabetes mellitus wit h hyperglycemia E78.00 Pure hypercholesterolemia, u nspecified I10 Essential (primary) hyperten pravin E66.01 Morbid (severe) obesity due to excess calories Z68.41 Body mass index [BMI] 40.0-4 4.9, adult K21.9 Gastro-esophageal reflux dis ease without esophagitis Assessments Date Code Description Provider 03/23/2021 E11.9 Type 2 diabetes mellitus without complications Terrie Newman D.O. 03/23/2021 E78.00 Pure hypercholesterolemia, unspe cified Terrie Tapia D.O. 03/23/2021 I10 Essential (primary) hypertension Elodia Lemus.O. 03/23/2021 E66.01 Morbid (severe) obesity due to e xcess calories Elodia Prince.O. 03/23/2021 Z68.41 Body mass index [BMI]40.0-44.9, adult Elodia Lemus.OKevin 03/23/2021 K21.9 Gastro-esophageal reflux disease without esophagitis Terrie Tapia D.O. 03/23/2021 Z79.899 Other terminal computer operator (current) drug t herapy Elodia Lemus.O. 03/23/2021 Z79.84 roasterman (current) use of oral hypoglycemic drugs Elodia Lemus.O. 03/23/2021 Z79.82 roasterman (current) use of aspir in Elodia Lemus.O. 03/23/2021 F52.21 Male erectile disorder Elodia Thornton.O. 03/23/2021 L57.0 Actinic keratosis Elodia Prince.O. 12/17/2020 E11.65 Type 2 diabetes mellitus with hy perglycemia KAREN Weller 12/17/2020 E78.00 Pure hypercholesterolemia, unspe cified KAREN Weller 12/17/2020 I10 Essential (primary) hypertension KAREN Weller 12/17/2020 E66.01 Morbid (severe) obesity due to e xcess calories KAREN Weller 12/17/2020 Z68.41 Body mass index [BMI]40.0-44.9, adult KAREN Weller 12/17/2020 K21.9 Gastro-esophageal reflux disease without esophagitis KAREN Weller Plan of Treatment Future Appointment(s):* 06/22/2021 9:40 am - KAREN Weller at [facility] Functional Status Description No Information Available Mental Status Description No Information Available Referrals Description No Information Available
--- OUTSIDE RECORDS SUMMARY | 2021-04-26 16:19 | CCD | Continuity of Care Document ---
Author Author Marino TAPIA D.O Organization Unknown Address [address] [place] [address] Phone [phone] Care Team Providers Care College Or University Business Manager Name Role Phone Terrie Tapia D.O. AUTM [facility] AUTM [phone] [facility] AUTM Problems Active Problems Provider Date [...] F O2 % BldC Oximetry 97 % Kathryn Body Weight 166 lb 12/17/2020 11:07am BP Systolic 144 mmHg BP Diastolic 78 mmHg Height 70.1 inches 5'10.10" Weight 286.00 lb BMI (Body Mass Index) 40.9 kg/m2 Heart Rate 70 /min Respiratory Rate 18 /min Body Temperature 97.8 F O2 % BldC Oximetry 95 % Kathryn Body Weight 166 lb Results Test Acquired Date Facility Test Result H/L Range Note Basic Metabolic Profile 03/17/2021 [facility] Outpatient T lucrecia (Registration) [address] [place] [address] [phone] Glucose, Fasting 115 mg/dL High 70-100 Blood [...] 9.4 mg/dL Normal 8.8-10.2 Hemoglobin A1c 03/17/2021 [facility] Outpatient Testi ng (Registration) [address] [place] [address] [phone] Hemoglobin A1c 6.4 % Normal 2 Estimated Average Glucose 137 mg/dL High 60-110 Hemoglobin A1c 12/15/[address] [address] [phone] Hemoglobin A1c 6.7 % Normal 3 Estimated Average Glucose 146 mg/dL High 60-110 Lipid Panel 12/15/[address] [address] [phone] Triglycerides Level 97 mg/dL Normal <150 Cholesterol Level 112 mg/dL Normal <200 HDL Cholesterol 31 mg/dL Low >40 LDL Cholesterol 62 mg/dL Normal <100 Non-HDL-C 81 mg/dL Normal Cholesterol Risk Ratio 3.612 Normal <5 Comprehensive Metabolic Profil 12/15/[address] [address] [phone] Glucose, Fasting 111 mg/dL High 70-100 Blood [...] Ratio 1.1 Normal CBC With Differential 12/15/2020 [place] [id number] [phone] White Blood Count 8.5 10 Normal 4.0-10.0 [...] 36.0-66.0 Lymph % 15.1 % Low 24.0-44.0 [place] % 7.5 % Normal 2.0-8.0 Eos % 1.7 % Normal 0.0-3.0 Baso % 0.7 % Normal 0.0-1.0 Immature Granulocyte % 0.5 % Normal 0-3.0 Nucleated Red Blood Cell % 0.0 % Normal 0-0 Neutrophils # 6.3 10 Normal 1.5-8.5 Lymph # 1.3 10 Low 1.5-5.0 [place] # 0.6 10 Normal 0.0-0.8 Eos # 0.1 10 Normal 0.0-0.5 Baso # 0.1 10 Normal 0.0-0.2 1 Units are mL/min/1.73 m2 Chronic Kidney Disease Staging per NKF: Stage I & II GFR >=60 Normal to Mildly Decreased Stage III GFR 30-59 Moderately Decreased Stage IV GFR 15-29 Severely Decreased Stage V GFR <15 Very Little GFR Left ESRD GFR <15 on HAND FLATWORK FINISHER 2 REFERENCE RANGES: <=5.6% NORMAL 5.7-6.4% SUGGESTS [...] Little GFR Left ESRD GFR <15 on HAND FLATWORK FINISHER Procedures Date Code Description Status 03/23/2021 45105 Office/Outpatient Established Mo d MDM 30-39 Min Completed 12/17/2020 40854 Office/Outpatient Established Mo d MDM 30-39 Min Completed Medical Devices Description No Information Available Encounters Type Date Location Provider Dx Diagnosis Office Visit 03/23/2021 9:00a [facility] Aris LemusOKevin E11.9 Type 2 diabetes mellitus wit hout complications E78.00 Pure hypercholesterolemia, u nspecified I10 Essential (primary) hyperten pravin E66.01 Morbid (severe) obesity due to excess calories Z68.41 Body mass index [BMI] 40.0-4 4.9, adult K21.9 Gastro-esophageal reflux dis ease without esophagitis Z79.899 Other senior care (current) dr ug therapy Z79.84 terminal block assembler (current) use of o ral hypoglycemic drugs Z79.82 terminal block assembler (current) use of a spirin F52.21 Male erectile disorder L57.0 Actinic keratosis Office Visit 12/17/2020 11:00a [facility] KAREN Weller E11.65 Type 2 diabetes mellitus [...] esophagitis Terrie Tapia D.O. 03/23/2021 Z79.899 Other predatory animal exterminator (current) drug t herapy Elodia Lemus.O. 03/23/2021 Z79.84 terminal block assembler (current) use of oral hypoglycemic drugs Elodia Lemus.O. 03/23/2021 Z79.82 terminal block assembler (current) use of aspir in Elodia Lemus.O. [...] 06/22/2021 9:40 am - KAREN Weller at [facility] Functional Status Description No Information Available Mental Status Description No Information Available Referrals Description No Information Available
--- OUTSIDE RECORDS SUMMARY | 2021-04-26 16:20 | CCD ---
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 Supporting Document(s) GLUCOSE 137 mg/dL 74-106 H [facility] BLOOD UREA NITROGEN 17 mg/dL 7-18 [facility] ital CREATININE 1.02 mg/dl 0.70-1.30 [facility] SODIUM 134 mmol/L 136-145 L [facility] POTASSIUM 3.8 mmol/L 3.5-5.1 [facility] CHLORIDE 99 mmol/L 98-107 [facility] CO2 24 mmol/L 21-32 [facility] CALCIUM 8.9 mg/dL 8.5-10.1 [facility] ANION GAP 11.0 mmol/L 5-12 [facility] GLOMERULAR FILTRATION RATE 73 mL/min [facility] GFR IS CALCULATED IN mL/min/1.73m2 DOMONIQUE L FUNCTION: >90MILDLY DECREASED: 60-89MILDY TO MODERATELY DECREASED: 45-59 MODERATELY TO SEVERELY DECREASED: 30-44SEVERELY DECREASED: 15-29RENAL FAILURE: <15 AST 13 U/L 15-37 [facility] ALT 22 U/L 16-63 [facility] ALKALINE PHOSPHATASE 107 U/L 46-116 [facility] pital TOTAL BILIRUBIN 0.5 mg/dL 0.2-1.0 [facility] TOTAL PROTEIN 7.7 g/dL 6.4-8.2 [facility] ALBUMIN 3.8 gm/dL 3.4-5.0 [facility] ID Date Data Source [id number] 04/23/2021 08:29:00 PM EDT [facility] TSYSORDER [id number] Name Value Range Interpretation Code Description Data Leila rce(s) Supporting Document(s) COVID-19 NEGATIVE NEGATIVE [facility] Negative results should be treated as pr esumptive and, ifinconsistent with clinical signs and symptoms or necessaryfor patient management, should be tested with differentauthorized or cleared molecular tests.Negative results do not preclude SARS-CoV-2 infection andshould not be used as the sole basis for patient managementdecisions.This is a rapid molecular isothermal nucleic acidamplification technology (NAAT) in vitro diagnostic testutilizing a loop mediated isothermal amplification (LAMP)test with nicking endonuclease amplification reaction(NEAR) intended for the qualitative detection of nucleica melvin from the SARS-CoV-2 viral RNA in direct nasal,nasopharyngeal or throat swabs from individuals who aresuspected of COVID-19.Results are for the indentification of SARS-CoV-2 RNA. IpcFAPE-HcW-6 RNA is generally detectable in respiratorysamples during the actue phase of infection. ID Date Data Source [id number] 04/23/2021 08:13:00 PM EDT [facility] TSYSORDER [id number] Name Value Range Interpretation Code Description Data Leila rce(s) Supporting Document(s) WHITE BLOOD COUNT 8.9 K/mm3 4.0-10.0 [facility] al RED BLOOD COUNT 5.48 M/mm3 4.50-6.00 [facility] HEMOGLOBIN 16.1 gm/dL 14.0-18.0 [facility] HEMATOCRIT 45.5 % 42.0-54.0 [facility] MEAN CELL VOLUME 83.0 fl 80-96 [facility] MEAN CORPUSCULAR HEMOGLOBIN 29.4 pg 27.0-31.0 [facility] MEAN CORPUSCULAR HGB CONC 35.4 g/dl 32.0-36.0 [facility] RED CELL DISTRIBUTION WIDTH 12.8 % 10.0-14.5 [facility] PLATELET COUNT 190 K/mm3 172-450 [facility] MEAN PLATELET VOLUME 10.2 fl 9.0-13.0 [facility] pital GRAN % 71.9 % 50-80.0 [facility] IG% 0.2 % 0.0-0.2 [facility] LYMPH % 19.2 % 25.0-50.0 L [facility] MONO % 6.1 % 2.0-10.0 [facility] EOS % 2.0 % 0-5.0 [facility] BASO % 0.6 % 0.0-2.0 [facility] GRAN # 6.4 K/mm3 2.0-8.00 [facility] IG# 0.0 K/mm3 0.0-0.2 [facility] LYMPH # 1.7 K/mm3 1.0-5.0 [facility] MONO # 0.5 K/mm3 0.10-1.20 [facility] EOS # 0.2 K/mm3 0.0-0.5 [facility] BASO # 0.1 K/mm3 0.0-0.2 [facility] ID Date Data Source [id number] 03/17/2021 08:10:00 AM EDT [facility] ([facility]) Name Value Range Interpretation Code Description Data Leila rce(s) Supporting Document(s) Hemoglobin A1c 6.4 % Normal (applies to non-numeric r esults) [facility] <content>REFERENCE RANGES:</content><br/ ><content></content>
<content><=5.6% NORMAL</content>
<content>5.7-6.4% SUGGESTS IMPAIRED GLUCOSE METABOLISM/PREDIABETIC</content>
<content>>= 6.5% ABNORMAL</content>
<content></content> Estimated Average Glucose 137 mg/dL 60-[address] [facility] ([facility]) ID Date Data Source [id number] 03/17/2021 08:10:00 AM EDT [facility]) Name Value Range Interpretation Code Description Data Leila rce(s) Supporting Document(s) Blood Urea Nitrogen 17 mg/dL 7-18 Normal (applies to non-nume brandy results) [facility] ([facility]) Glucose, Fasting 115 mg/dL 70-100 Above high normal [facility] ([facility]) Glomerular Filtration Rate Laboratory test result Normal (applies to non- numeric results) [facility] ([facility]) <content>Units are mL/min/1.73 m2</content>
<content></content>
<content>Chronic Kidney Disease Staging per NKF:</content>
<content></content>
<content>Stage I & II GFR >=60 Normal to Mildly Decreased</content>
<content>Stage III GFR 30- 59 Moderately Decreased</content>
<content>Stage IV GFR 15-29 Severely Decreased</content>
<content>Stage V GFR <15 Very Little GFR Left</content>
<content>ESRD GFR <15 on FOAM FABRICATOR</content>
<content></content> Sodium Level 133 meq/L 136-[address] [facility] ([facility]) Creatinine For GFR 0.99 mg/dL 0.70-1.30 Normal (applies to non -numeric results) [facility] ([facility]) Chloride Level 101 meq/L 98-107 Normal (applies to non-numeric r esults) [facility] ([facility]) Carbon Dioxide Level 26 meq/L 21-32 Normal (applies to non-num constance results) [facility] ([facility]) Potassium Serum 4.1 meq/L 3.5-5.1 Normal (applies to non-numeric results) [facility] ([facility]) Calcium Level 9.4 mg/dL 8.8-10.2 Normal (applies to non-numeric re sults) [facility] ([facility]) Anion Gap 6 meq/L 8-[address] [facility] ( [facility]) ID Date Data Source [id number] 12/15/2020 01:27:00 PM EDT [facility] ([facility]) Name Value Range Interpretation Code Description Data Leila rce(s) Supporting Document(s) Red Blood Count 5.76 10 4.30-6.10 Normal (applies to non-numeric results) [facility]) White Blood Count 8.5 10 4.0-10.0 Normal (applies to non-numeri c results) [facility]) Hemoglobin 17.0 g/dL 13.5-17.5 Normal (applies to non-numeric resul ts) [facility] ([facility]) Hematocrit 50.9 % 42.0-52.0 Normal (applies to non-numeric resul ts) [facility]) Mean Corpuscular Volume 88.4 fl 80.0-96.0 Normal ( applies to non-numeric results) [facility] ([facility]) Red Cell Distribution Width 13.2 % 11.5-14.5 Norm al (applies to non-numeric results) [facility]) Mean Corpuscular Hemoglobin 29.5 pg 27.0-33.0 Norm al (applies to non-numeric results) [facility]) Mean Corpuscular HGB Conc 33.4 g/dL 32.0-36.5 Normal (applies to non-numeric results) [facility] ([facility]) Platelet Count, Automated 169 10 150-450 Normal (applies to non-numeric results) [facility] ([facility]) Lymph % 15.1 % 24.0-44.[address] [facility] ( [facility]) Neutrophils % 74.5 % 36.0-66.0 Above high normal [facility] ([facility]) Clare % 7.5 % 2.0-8.0 Normal (applies to non-numeric resul ts) [facility] ([facility]) Eos % 1.7 % 0.0-3.0 Normal (applies to non-numeric resul ts) [facility] ([facility]) Baso % 0.7 % 0.0-1.0 Normal (applies to non-numeric resul ts) [facility] ([facility]) Nucleated Red Blood Cell % 0.0 % 0-0 Normal (applies to n on-numeric results) [facility] ([facility]) Immature Granulocyte % 0.5 % 0-3.0 Normal (applies to non-n umeric results) [facility] ([facility]) Lymph # 1.3 10 1.5-5.0 Below low normal [facility] ( [facility]) Clare # 0.6 10 0.0-0.8 Normal (applies to non-numeric resul ts) [facility] ([facility]) Neutrophils # 6.3 10 1.5-8.5 Normal (applies to non-numeric re sults) [facility] ([facility]) Eos # 0.1 10 0.0-0.5 Normal (applies to non-numeric resul ts) [facility] ([facility]) Baso # 0.1 10 0.0-0.2 Normal (applies to non-numeric resul ts) [facility] ([facility]) ID Date Data Source [id number] 12/15/2020 01:27:00 PM EDT [facility] ([facility]) Name Value Range Interpretation Code Description Data Leila rce(s) Supporting Document(s) Glucose, Fasting 111 mg/dL 70-100 Above high normal [facility] ([facility]) Blood Urea Nitrogen 18 mg/dL 7-18 Normal (applies to non-nume brandy results) [facility] ([facility]) Glomerular Filtration Rate Laboratory test result Normal (applies to non- numeric results) [facility]) <content>Units are mL/min/1.73 m2</content>
<content></content>
<content>Chronic Kidney Disease Staging per NKF:</content>
<content></content>
<content>Stage I & II GFR >=60 Normal to Mildly Decreased</content>
<content>Stage III GFR 30- 59 Moderately Decreased</content>
<content>Stage IV GFR 15-29 Severely Decreased</content>
<content>Stage V GFR <15 Very Little GFR Left</content>
<content>ESRD GFR <15 on FOAM FABRICATOR</content>
<content></content> Creatinine For GFR 1.03 mg/dL 0.70-1.30 Normal (applies to non -numeric results) [facility] ([facility]) Carbon Dioxide Level 22 meq/L 21-32 Normal (applies to non-num constance results) [facility] Potassium Serum 4.4 meq/L 3.5-5.1 Normal (applies to non-numeric results) [facility] ([facility]) Chloride Level 103 meq/L 98-107 Normal (applies to non-numeric r esults) [facility] ([facility]) Sodium Level 134 meq/L 136-145 Below low normal [facility] Ast/Sgot 12 U/L 7-37 Normal (applies to non-numeric resul ts) [facility] ([facility]) Calcium Level 8.5 mg/dL 8.8-10.2 Below low normal [facility] ([facility]) Anion Gap 9 meq/L 8-16 Normal (applies to non-numeric resul ts) [facility] ([facility]) Bilirubin,Total 0.8 mg/dL 0.2-1.0 Normal (applies to non-numeric results) [facility] ([facility]) Alkaline Phosphatase 112 U/L 45-117 Normal (applies to non-num constance results) [facility] ([facility]) Alt/SGPT 18 U/L 12-78 Normal (applies to non-numeric resul ts) [facility] ([facility]) Albumin 3.8 GM/DL 3.2-5.2 Normal (applies to non-numeric resul ts) [facility] ([facility]) Total Protein 7.2 GM/DL 6.4-8.2 Normal (applies to non-numeric re sults) [facility] ([facility]) Albumin/Globulin Ratio 1.1 Normal (applies to non-n umeric results) [facility] ([facility]) ID Date Data Source [id number] 12/15/2020 01:27:00 PM EDT [facility] ([facility]) Name Value Range Interpretation Code Description Data Leila rce(s) Supporting Document(s) Triglycerides Level 97 mg/dL Normal (applies to non-nume brandy results) [facility] ([facility]) Cholesterol Level 112 mg/dL Normal (applies to non-numeri c results) [facility] ([facility]) LDL Cholesterol 62 mg/dL Normal (applies to non-numeric results) [facility] ([facility]) HDL Cholesterol 31 mg/dL Below low normal [facility] ([facility]) Non-HDL-C 81 mg/dL Normal (applies to non-numeric resul ts) [facility] ([facility]) Cholesterol Risk Ratio 3.612 Normal (applies to non-n umeric results) [facility] ([facility]) ID Date Data Source [id number] 12/15/2020 01:27:00 PM EDT [facility]) Name Value Range Interpretation Code Description Data Leila rce(s) Supporting Document(s) Estimated Average Glucose 146 mg/dL 60-110 Above high normal [facility] ([facility]) Hemoglobin A1c 6.7 % Normal (applies to non-numeric r esults) [facility]) <content>REFERENCE RANGES:</content><br/ ><content></content>
<content><=5.6% NORMAL</content>
<content>5.7-6.4% SUGGESTS IMPAIRED GLUCOSE METABOLISM/PREDIABETIC</content>
<content>>= 6.5% ABNORMAL</content>
<content></content> ID Date Data Source [id number] 09/09/2020 08:12:00 AM EST [facility] ([facility]) Name Value Range Interpretation Code Description Data Leila rce(s) Supporting Document(s) Hemoglobin A1c 7.1 % Normal (applies to non-numeric r esults) [facility] ([facility]) <content>REFERENCE RANGES:</content><br/ ><content></content>
<content><=5.6% NORMAL</content>
<content>5.7-6.4% SUGGESTS IMPAIRED GLUCOSE METABOLISM/PREDIABETIC</content>
<content>>= 6.5% ABNORMAL</content>
<content></content> Estimated Average Glucose 157 mg/dL 60-[address] [facility] ([facility]) ID Date Data Source [id number] 09/09/2020 08:12:[address] [facility] ([facility]) Name Value Range Interpretation Code Description Data Leila rce(s) Supporting Document(s) Glucose, Fasting 135 mg/dL 70-100 Above high normal [facility] ([facility]) Blood Urea Nitrogen 19 mg/dL 7-[address] [facility] ([facility]) Glomerular Filtration Rate Laboratory test result Normal (applies to non- numeric results) [facility] ([facility]) <content>Units are mL/min/1.73 m2</content>
<content></content>
<content>Chronic Kidney Disease Staging per NKF:</content>
<content></content>
<content>Stage I & II GFR >=60 Normal to Mildly Decreased</content>
<content>Stage III GFR 30- 59 Moderately Decreased</content>
<content>Stage IV GFR 15-29 Severely Decreased</content>
<content>Stage V GFR <15 Very Little GFR Left</content>
<content>ESRD GFR <15 on FOAM FABRICATOR</content>
<content></content> Creatinine For GFR 1.08 mg/dL 0.70-1.30 Normal (applies to non -numeric results) [facility] ([facility]) Sodium Level 134 meq/L 136-145 Below low normal [facility] ([facility]) Potassium Serum 4.1 meq/L 3.5-5.1 Normal (applies to non-numeric results) [facility] ([facility]) Chloride Level 101 meq/L 98-107 Normal (applies to non-numeric r esults) [facility] ([facility]) Carbon Dioxide Level 24 meq/L 21-32 Normal (applies to non-num constance results) [facility] ([facility]) Calcium Level 8.9 mg/dL 8.8-10.2 Normal (applies to non-numeric re sults) [facility] ([facility]) Anion Gap 9 meq/L 8-16 Normal (applies to non-numeric resul ts) [facility] ([facility]) ID Date Data Source [id number] 07/24/2020 02:48:00 PM EST [facility] ([facility], ) Name Value Range Interpretation Code Description Data Leila rce(s) Supporting Document(s) Surgical pathology study Laboratory test result [facility] ([facility], ) FINAL DIAGNOSIS Skin, right side of neck, excisional biopsy: Invasive squamous cell carcinoma, moderately differentiated. Margins are free. 07/28/2020 - 1111 CLINICAL DIAGNOSIS Lesion 07/27/20201354 GROSS DIAGNOSIS Received in formalin labeled "lesion, right side of neck" and consists of a fragment of skin, 1 x 1 x 0.5 cm. All in one. -OA 07/27/20201354 Signed IRVING HERNANDEZ MD 07/28/2020 1121 ID Date Data Source [id number] 07/01/2020 12:00:[address] [facility] [place] [facility] Patient Name: ALISA FARIAS [id number] Date of : 1950[address] Date of Exam: 07/01/2020MATTY Dickerson [id number]#: Fax: [phone] EXAM: CT BRAIN WITHOUT CONTRASTCLINICAL INFORMATION: History of repeated falls, worse with eyes closed.Evaluate for cerebellar abnormality.No comparison brain imaging.TECHNIQUE: Low dose [address] scanning of the brain was obtainedfrom the skull base to the cerebral convexities using 5 mm incrementswithout intravenous contrast and windowed using both bone and soft tissuesettings.CT FINDINGS:Digital preliminary abe teacher radiograph is unremarkable. Bone window settingsdemonstrate mild vascular calcification in the distal internal carotidarteries bilaterally. The bony calvarium is intact. Visualized paranasalsinuses are clear. No intraorbital abnormality is seen.On soft tissue window settings, the lateral, third, and fourth ventriclesare normal in position and appearance. There is mild generalized volumeloss. There is no evidence of infarct, intracranial hemorrhage, mass,extraaxial fluid collection, or midline shift.IMPRESSION:Vascular calcification and mild generalized volume loss. No acuteintracranial abnormality.Accredited by the [employer] in [place].SANJANA Lozano/Pramod you for referring ALISA FARIAS to our office. Electronically Signed - CHEMA SEVERINO MD 07/01/20 13:31 Name Value Range Interpretation Code Description Data Leila rce(s) Supporting Document(s) ID Date Data Source [id number] 06/10/2020 09:08:00 AM EST [facility] ([facility]) Name Value Range Interpretation Code Description Data Leila rce(s) Supporting Document(s) Cholesterol Level 126 mg/dL Normal (applies to non-numeri c results) [facility] ([facility]) Triglycerides Level 102 mg/dL Normal (applies to non-nume brandy results) [facility] ([facility]) LDL Cholesterol 72 mg/dL Normal (applies to non-numeric results) [facility] ([facility]) HDL Cholesterol 34 mg/dL Below low normal [facility] ([facility]) Non-HDL-C 92 mg/dL Normal (applies to non-numeric resul ts) [facility] ([facility]) Cholesterol Risk Ratio 3.705 Normal (applies to non-n umeric results) [facility] ([facility]) ID Date Data Source [id number] 06/10/2020 09:08:00 AM EST [facility] ([facility]) Name Value Range Interpretation Code Description Data Leila rce(s) Supporting Document(s) Hemoglobin 17.3 g/dL 13.5-17.5 Normal (applies to non-numeric resul ts) [facility] ([facility]) White Blood Count 7.3 10 4.0-10.0 Normal (applies to non-numeri c results) [facility] ([facility]) Red Blood Count 5.89 10 4.30-6.10 Normal (applies to non-numeric results) [facility] ([facility]) Hematocrit 51.8 % 42.0-52.0 Normal (applies to non-numeric resul ts) [facility] ([facility]) Mean Corpuscular Volume 87.9 fl 80.0-96.0 Normal ( applies to non-numeric results) [facility] ([facility]) Mean Corpuscular Hemoglobin 29.4 pg 27.0-33.0 Norm al (applies to non-numeric results) [facility] ([facility]) Mean Corpuscular HGB Conc 33.4 g/dL 32.0-36.5 Normal (applies to non-numeric results) [facility] ([facility]) Red Cell Distribution Width 13.1 % 11.5-14.5 Norm al (applies to non-numeric results) [facility] ([facility]) Platelet Count, Automated 160 10 150-450 Normal (applies to non-numeric results) [facility] ([facility]) Neutrophils % 72.7 % 36.0-66.0 Above high normal [facility] ([facility]) Lymph % 17.9 % 24.0-44.0 Below low normal [facility] ( [facility]) Clare % 6.4 % 0.0-5.0 Above high normal [facility] ([facility]) Baso % 0.7 % 0.0-1.0 Normal (applies to non-numeric resul ts) [facility] ([facility]) Eos % 1.9 % 0.0-3.0 Normal (applies to non-numeric resul ts) [facility] ([facility]) Immature Granulocyte % 0.4 % 0-3.0 Normal (applies to non-n umeric results) [facility] ([facility]) Nucleated Red Blood Cell % 0.0 % 0-0 Normal (applies to n on-numeric results) [facility] ([facility]) Lymph # 1.3 10 1.5-5.0 Below low normal [facility] ( [facility]) Clare # 0.5 10 0.0-0.8 Normal (applies to non-numeric resul ts) [facility] ([facility]) Neutrophils # 5.3 10 1.5-8.5 Normal (applies to non-numeric re sults) [facility] ([facility]) Baso # 0.1 10 0.0-0.2 Normal (applies to non-numeric resul ts) [facility] ([facility]) Eos # 0.1 10 0.0-0.5 Normal (applies to non-numeric resul ts) [facility] ([facility]) ID Date Data Source [id number] 06/10/2020 09:08:00 AM EST [facility] ([facility]) Name Value Range Interpretation Code Description Data Leila rce(s) Supporting Document(s) PSA Total 0.1 ng/mL 0.0-4.0 Normal (applies to non-numeric resul ts) [facility] ([facility]) Bethanie ECLIA methodology. . According to the [employer], Serum PSA should decrease and remain at undetectable levels after radical prostatectomy. The AUA defines biochemical recurrence as an initial PSA value 0.2 ng/mL or greater followed by a subsequent confirmatory PSA value 0.2 ng/mL or greater. Values obtained with different assay methods or kits cannot be used interchangeably. Results cannot be interpreted as absolute evidence of the presence or absence of malignant disease. PSA Comment Laboratory test result Normal (applies to non- numeric results) [facility] ([facility]) . The percent free PSA is performed on a reflex basis only when the total PSA is between 4.0 and 10.0 ng/mL. Performed at: - [facility] [address] [id number] Junior Designer: La Maurice MD, Phone: [phone] ID Date Data Source [id number] 06/10/2020 09:08:[address] [facility] ([facility]) Name Value Range Interpretation Code Description Data Leila rce(s) Supporting Document(s) Creatinine, Urine 195.0 mg/dL Normal (applies to non-numer ic results) [facility] ([facility]) Malb Urine Siemens 119.0 mg/L Normal (applies to non-numer ic results) [facility] ([facility]) Glynn/Creat Ratio 61.0 MCG/MG 0.0-30.0 Above high normal [facility] ([facility]) THE CITIZEN [employer] [place] STATES THAT MICROALBUMINURIA IS PRESENT IF THE MICROALBUMIN/CREATININE RATIO EXCEEDS 30 MCG/MG. THE THRESHOLD FOR CLINICAL ALBUMINURIA IS REACHED AT 300 MCG/MG. THE CLASSIFICATION OF A PATIENT SHOULD BE BASED UPON AT LEAST 2 OF 3 ABNORMAL RESULTS ON SPECIMENS COLLECTED WITHIN A 3 TO 6 MONTH TIME FRAME. ID Date Data Source [id number] 06/10/2020 09:08:[address] [facility] ([facility]) Name Value Range Interpretation Code Description Data Leila rce(s) Supporting Document(s) Hemoglobin A1c 7.8 % Normal (applies to non-numeric r esults) [facility]) <content>REFERENCE RANGES:</content><br/ ><content></content>
<content><=5.6% NORMAL</content>
<content>5.7-6.4% SUGGESTS IMPAIRED GLUCOSE METABOLISM/PREDIABETIC</content>
<content>>= 6.5% ABNORMAL</content>
<content></content> Estimated Average Glucose 177 mg/dL 60-[address] [facility] ([facility]) ID Date Data Source [id number] 06/10/2020 09:08:00 AM EST [facility] ([facility]) Name Value Range Interpretation Code Description Data Leila rce(s) Supporting Document(s) Glucose, Fasting 129 mg/dL 70-100 Above high normal M [facility] ([facility]) Creatinine For GFR 1.13 mg/dL 0.70-1.30 Normal (applies to non -numeric results) [facility] ([facility]) Blood Urea Nitrogen 15 mg/dL 7-18 Normal (applies to non-nume brandy results) [facility] ([facility]) Potassium Serum 4.5 meq/L 3.5-5.1 Normal (applies to non-numeric results) [facility] ([facility]) Glomerular Filtration Rate Laboratory test result Normal (applies to non- numeric results) [facility] ([facility]) <content>Units are mL/min/1.73 m2</content>
<content></content>
<content>Chronic Kidney Disease Staging per NKF:</content>
<content></content>
<content>Stage I & II GFR >=60 Normal to Mildly Decreased</content>
<content>Stage III GFR 30- 59 Moderately Decreased</content>
<content>Stage IV GFR 15-29 Severely Decreased</content>
<content>Stage V GFR <15 Very Little GFR Left</content>
<content>ESRD GFR <15 on FOAM FABRICATOR</content>
<content></content> Sodium Level 135 meq/L 136-145 Below low normal [facility] ([facility]) Chloride Level 105 meq/L 98-107 Normal (applies to non-numeric r esults) [facility] ([facility]) Carbon Dioxide Level 24 meq/L 21-32 Normal (applies to non-num constance results) [facility] ([facility]) Ast/Sgot 15 U/L 7-37 Normal (applies to non-numeric resul ts) [facility] ([facility]) Anion Gap 6 meq/L 8-16 Below low [facility] Calcium Level 9.1 mg/dL 8.8-10.2 Normal (applies to non-numeric re sults) [facility] ([facility]) Bilirubin,Total 0.9 mg/dL 0.2-1.0 Normal (applies to non-numeric results) [facility] ([facility]) Alt/SGPT 23 U/L 12-78 Normal (applies to non-numeric resul ts) [facility] ([facility]) Alkaline Phosphatase 122 U/L 45-[address] [facility] ([facility]) Total Protein 7.4 GM/DL 6.4-8.2 Normal (applies to non-numeric re sults) [facility] ([facility]) Albumin/Globulin Ratio 1.1 Normal (applies to non-n umeric results) [facility] ([facility]) Albumin 3.9 GM/DL 3.2-5.2 Normal (applies to non-numeric resul ts) [facility]) ID Date Data Source [id number] 03/13/2020 09:04:[address] [facility] ([facility]) Name Value Range Interpretation Code Description Data Leila rce(s) Supporting Document(s) PSA Total 0.1 ng/mL 0.0-4.0 Normal (applies to non-numeric resul ts) [facility]) Bethanie ECLIA methodology. . According to the [employer], Serum PSA should decrease and remain at undetectable levels after radical prostatectomy. The AUA defines biochemical recurrence as an initial PSA value 0.2 ng/mL or greater followed by a subsequent confirmatory PSA value 0.2 ng/mL or greater. Values obtained with different assay methods or kits cannot be used interchangeably. Results cannot be interpreted as absolute evidence of the presence or absence of malignant disease. PSA Comment Laboratory test result Normal (applies to non- numeric results) [facility]) . The percent free PSA is performed on a reflex basis only when the total PSA is between 4.0 and 10.0 ng/mL. Performed at: RN - [facility] [address] [id number] Junior Designer: La Maurice MD, Phone: [phone] ID Date Data Source [id number] 03/13/2020 09:04:00 AM EDT [facility]) Name Value Range Interpretation Code Description Data Leila rce(s) Supporting Document(s) Thyroid Stimulating Hormone 2.890 uIU/ML 0.358-3.740 Norm al (applies to non- numeric results) [facility]) Free T4 1.05 ng/dL 0.76-1.46 Normal (applies to non-numeric resul ts) [facility]) ID Date Data Source [id number] 03/13/2020 09:04:00 AM EDT [facility]) Name Value Range Interpretation Code Description Data Leila rce(s) Supporting Document(s) Estimated Average Glucose 183 mg/dL 60-[address] [facility] ([facility]) Hemoglobin A1c 8.0 % Normal (applies to non-numeric r esults) [facility] ([facility]) <content>REFERENCE RANGES:</content><br/ ><content></content>
<content><=5.6% NORMAL</content>
<content>5.7-6.4% SUGGESTS IMPAIRED GLUCOSE METABOLISM/PREDIABETIC</content>
<content>>= 6.5% ABNORMAL</content>
<content></content> ID Date Data Source [id number] 03/13/2020 09:04:[address] [facility] ([facility]) Name Value Range Interpretation Code Description Data Leila rce(s) Supporting Document(s) Glucose, Fasting 269 mg/dL 70-100 Above high normal [facility]) Creatinine For GFR 1.19 mg/dL 0.70-1.30 Normal (applies to non -numeric results) [facility] ([facility]) Blood Urea Nitrogen 22 mg/dL 7-[address] [facility] ([facility]) Glomerular Filtration Rate Laboratory test result Normal (applies to non- numeric results) [facility] ([facility]) <content>Units are mL/min/1.73 m2</content>
<content></content>
<content>Chronic Kidney Disease Staging per NKF:</content>
<content></content>
<content>Stage I & II GFR >=60 Normal to Mildly Decreased</content>
<content>Stage III GFR 30- 59 Moderately Decreased</content>
<content>Stage IV GFR 15-29 Severely Decreased</content>
<content>Stage V GFR <15 Very Little GFR Left</content>
<content>ESRD GFR <15 on FOAM FABRICATOR</content>
<content></content> Potassium Serum 4.3 meq/L 3.5-5.1 Normal (applies to non-numeric results) [facility] ([facility]) Sodium Level 131 meq/L 136-145 Below low normal [facility] ([facility]) Chloride Level 103 meq/L 98-107 Normal (applies to non-numeric r esults) [facility] ([facility]) Carbon Dioxide Level 20 meq/L 21-32 Below low normal [facility] ([facility]) Anion Gap 8 meq/L 8-16 Normal (applies to non-numeric resul ts) [facility] ([facility]) Calcium Level 7.7 mg/dL 8.8-10.2 Below low normal [facility] ([facility]) Procedure Social History Code Duration Value Status Description Data Source(s ) Smoking 03/23/2021 12:00:00 AM EDT Patient has never smoked co mpleted Patient has never smoked [facility] ([facility]) Smoking 11/25/2020 12:00:00 AM EDT Never Smoker completed Never S moker eCW1 ([facility]) Smoking 07/17/2020 12:00:00 AM EST Non Smoker completed Non Smoke r [facility] ([facility], ) Vital Signs ID Date Data Source [id number] Name Value Range Interpretation Code Description Data Source(s) Diastolic blood pressure 82 mm[Hg] 82 mm[Hg] [facility] ([facility]) Body height 70.1 [in_i] 70.1 [in_i] [facility] ([facility]) 5'10.10" Body weight 283.00 [lb_av] 283.00 [lb_av] [facility] ([facility]) Body mass index (BMI) [Ratio] 40.5 kg/m2 40.5 k g/m2 [facility] ([facility]) Heart rate 68 /min 68 /min [facility] ([facility]) Respiratory rate 18 /min 18 /min [facility] ( [facility]) Body temperature 97.8 [degF] 97.8 [degF] [facility] ([facility]) Oxygen saturation in Arterial blood by Pulse oximetry 97 % 97 % [facility] ([facility]) Elsie body weight 166 [lb_av] 166 [lb_av] [facility] ([facility]) Systolic blood pressure 134 mm[Hg] 134 mm[Hg] M [facility] ([facility]) Systolic blood pressure 144 mm[Hg] 144 mm[Hg] [facility] ([facility]) Diastolic blood pressure 78 mm[Hg] 78 mm[Hg] [facility] ([facility]) Elsie body weight 166 [lb_av] 166 [lb_av] [facility] ([facility]) Heart rate 70 /min 70 /min [facility] ([facility]) Respiratory rate 18 /min 18 /min [facility] ( [facility]) Body temperature 97.8 [degF] 97.8 [degF] [facility] ([facility]) Oxygen saturation in Arterial blood by Pulse oximetry 95 % 95 % [facility] ([facility]) Body height 70.1 [in_i] 70.1 [in_i] [facility] ([facility]) 5'10.10" Body weight 286.00 [lb_av] 286.00 [lb_av] [facility] T ([facility]) Body mass index (BMI) [Ratio] 40.9 kg/m2 40.9 k g/m2 [facility] ([facility]) Body weight 286.0 [lb_av] 286.0 [lb_av] eCW1 ([facility]) Body height 72 [in_i] 72 [in_i] W1 ([facility]) Body mass index (BMI) [Ratio] 38.78 kg/m2 38.78 kg/m2 eCW1 ([facility]) Systolic blood pressure 132 mm[Hg] 132 mm[Hg] e CW1 ([facility]) Diastolic blood pressure 80 mm[Hg] 80 mm[Hg] eCW1 ([facility]) Systolic blood pressure 130 mm[Hg] 130 mm[Hg] M [facility] ([facility]) Diastolic blood pressure 76 mm[Hg] 76 mm[Hg] [facility] ([facility]) Body height 70.1 [in_i] 70.1 [in_i] [facility] ([facility]) 5'10.10" Body weight 294.12 [lb_av] 294.12 [lb_av] [facility] T ([facility]) Body mass index (BMI) [Ratio] 42.1 kg/m2 42.1 k g/m2 [facility] ([facility]) Heart rate 59 /min 59 /min [facility] Respiratory rate 16 /min 16 /min [facility] ( [facility]) Body temperature 97.9 [degF] 97.9 [degF] [facility] ([facility]) Oxygen saturation in Arterial blood by Pulse oximetry 98 % 98 % [facility] ([facility]) Elsie body weight 166 [lb_av] 166 [lb_av] [facility] ([facility]) Heart rate 88 /min 88 /min [facility] Body height 72 [in_i] 72 [in_i] [facility] ([facility], ) 6'0" Elsie body weight 178 [lb_av] 178 [lb_av] [facility] T ([facility], ) Respiratory rate 22 /min 22 /min [facility], ) Body temperature 96.7 [degF] 96.7 [degF] [facility] ) Systolic blood pressure 156 mm[Hg] 156 mm[Hg] M [facility] ([facility], ) Diastolic blood pressure 88 mm[Hg] 88 mm[Hg] [facility] ([facility]) Systolic blood pressure 144 mm[Hg] 144 mm[Hg] M [facility] ([facility]) Diastolic blood pressure 94 mm[Hg] 94 mm[Hg] [facility] ([facility]) Heart rate 84 /min 84 /min [facility] ([facility]) Respiratory rate 18 /min 18 /min [facility] ( [facility]) Body temperature 98.0 [degF] 98.0 [degF] [facility] ([facility]) Body height 72 [in_i] 72 [in_i] [facility] ([facility]) 6'0" Elsie body weight 178 [lb_av] 178 [lb_av] MEDEN T ([facility]) Systolic blood pressure 144 mm[Hg] 144 mm[Hg] M EDENT ([facility]) Diastolic blood pressure 88 mm[Hg] 88 mm[Hg] [facility] ([facility]) Heart rate 80 /min 80 /min [facility] ([facility]) Respiratory rate 18 /min 18 /min [facility] Body temperature 97.1 [degF] 97.1 [degF] [facility] Body height 72 [in_i] 72 [in_i] [facility] ([facility]) 6'0" Body weight 289.00 [lb_av] 289.00 [lb_av] [facility] T ([facility]) Body mass index (BMI) [Ratio] 39.2 kg/m2 39.2 k g/m2 [facility] ([facility]) Elsie body weight 178 [lb_av] 178 [lb_av] [facility] T ([facility]) Body weight 131.[address] [facility] ([facility]) Body surface area Derived from formula 2.[address] [facility] ([facility]) Heart rate 85 /min 85 /min [facility] ([facility]) Body mass index (BMI) [Ratio] 41.7 kg/m2 41.7 k g/m2 [facility] ([facility]) Respiratory rate 18 /min 18 /min [facility] ( [facility]) Body temperature 98.9 [degF] 98.9 [degF] [facility] ([facility]) Oxygen saturation in Arterial blood by Pulse oximetry 96 % 96 % [facility] ([facility]) Systolic blood pressure 144 mm[Hg] 144 mm[Hg] [facility] ([facility]) Body height 70.1 [in_i] 70.1 [in_i] [facility] ([facility]) 5'10.10" Body weight 291.38 [lb_av] 291.38 [lb_av] [facility] Elsie body weight 166 [lb_av] 166 [lb_av] [facility] ([facility]) Diastolic blood pressure 80 mm[Hg] 80 mm[Hg] [facility] ([facility]) Systolic blood pressure 138 mm[Hg] 138 mm[Hg] [facility] ([facility]) Body height 70.1 [in_i] 70.1 [in_i] [facility] ([facility]) 5'10.10" Diastolic blood pressure 84 mm[Hg] 84 mm[Hg] [facility] ([facility]) Body weight 295.31 [lb_av] 295.31 [lb_av] [facility] ([facility]) Body mass index (BMI) [Ratio] 42.2 kg/m2 42.2 k g/m2 [facility] ([facility]) Heart rate 66 /min 66 /min [facility] ([facility]) Body temperature 97.8 [degF] 97.8 [degF] [facility] ([facility]) Oxygen saturation in Arterial blood by Pulse oximetry 97 % 97 % [facility] ([facility]) Elsie body weight 166 [lb_av] 166 [lb_av] [facility] ([facility]) Patient Treatment Plan of Care Planned Activity Planned Date Details Description Data Source (s) Fluorouracil 50 MG/ML Topical Cream [Efudex] 11/25/2020 12:00:00 AM EDT eCW1 ([facility])
--- OUTSIDE RECORDS SUMMARY | 2021-04-26 16:20 | CCD | Continuity of Care Document ---
Author Author Marino BRYSON PA Organization Unknown Address [id number] [place] [address] 6 [address] [place] [address] Phone [phone] Care Team Providers Care Environmental Service Aide Name Role Phone Terrie Tapia D.O. AUTM [phone] [facility] [phone] [facility] Problems Active Problems Provider [...] Use Denies Drug Use Smoking Status Reviewed: 12/17/20 Patient has never smoked Exercise Type/Frequency Exercises regularly Sun Exposure Uses sunscreen Seat Belt/Car Seat Always uses seat belt Allergies, Adverse Reactions, Alerts Description No Known Drug Allergies Medications Active Medications SIG Qnty Indications Ordering Provide r Date Rybelsus 14mg Tablets 1 by mouth every day 90tabs Terrie Tapia D.O. 03/17 /2021 Losartan Potassium 100mg Tablets Take One Tablet By Mouth Every Day 90tabs Aris LemusOKevin 09/13/2019 Famotidine 20mg Tablets take 1 by mouth twice daily as needed for heartburn. 180tabs K21.9 Aris RomeroOKevin 09/13/2019 Tacrolimus 0.03% Ointment Apply To Hands Two Times A Day as Needed 30units L30.9 Aris LemusOKevin 12/12/2018 Sildenafil Citrate 100mg Tablets Take 1 Tablet By Mouth 1 Hour Prior To Sexual Activity 18tabs F52.21 Elodia Prince.OKevin 08/30/2018 Atorvastatin Calcium 40mg Tablets Take One Tablet By Mouth Every Evening 90tabs E78.00 Elodia Arizmendi.OKevin 09/05/2016 Aspirin Adult Low Dose 81mg Tablet s DR 1 by mouth every day 90tabs Aris LemusOKevin Farxiga 10mg Tablets Take One Tablet By Mouth Every Day 90tabs E11.65 Elodia Lemus.OKevin 06/07 Aleve 220mg Capsules 2 tablets by mouth daily in am Unknown Immunizations Description No Information Available Vital Signs Date Vital Result Comment 12/17/2020 11:07am BP Systolic 144 mmHg BP Diastolic 78 mmHg Height 70.1 inches 5'10.10" Weight 286.00 lb BMI (Body Mass Index) 40.9 kg/m2 Heart Rate 70 /min Respiratory Rate 18 /min Body Temperature 97.8 F O2 % BldC Oximetry 95 % [place] Body Weight 166 lb 09/16/2020 10:31am BP Systolic 130 mmHg BP Diastolic 76 mmHg Height 70.1 inches 5'10.10" Weight 294.12 lb BMI (Body Mass Index) 42.1 kg/m2 Heart Rate 59 /min Respiratory Rate 16 /min Body Temperature 97.9 F O2 % BldC Oximetry 98 % [place] Body Weight 166 lb Results Test Acquired Date Facility Test Result H/L Range Note Basic Metabolic Profile 03/17/2021 [facility] Outpatient T evieing (Registration) [address] [id number] [phone] Glucose, Fasting 115 mg/dL High 70-100 Blood [...] 9.4 mg/dL Normal 8.8-10.2 Hemoglobin A1c 03/17/2021 [facility] Outpatient Testi ng (Registration) [address] [place] [phone] Hemoglobin A1c 6.4 % Normal 2 Estimated Average Glucose 137 mg/dL High 60-110 Hemoglobin A1c 12/15/[address] [id number] [phone] Hemoglobin A1c 6.7 % Normal 3 Estimated Average Glucose 146 mg/dL High 60-110 Lipid Panel 12/15/[address] [id number] [phone] Triglycerides Level 97 mg/dL Normal <150 Cholesterol Level 112 mg/dL Normal <200 HDL Cholesterol 31 mg/dL Low >40 LDL Cholesterol 62 mg/dL Normal <100 Non-HDL-C 81 mg/dL Normal Cholesterol Risk Ratio 3.612 Normal <5 Comprehensive Metabolic Profil 12/15/[address] [address] [phone] Glucose, Fasting 111 mg/dL High 70-100 Blood [...] Ratio 1.1 Normal CBC With Differential 12/15/2020 [place] [id number] [phone] White Blood Count 8.5 10 Normal 4.0-10.0 [...] 36.0-66.0 Lymph % 15.1 % Low 24.0-44.0 [place] % 7.5 % Normal 2.0-8.0 Eos % 1.7 % Normal 0.0-3.0 Baso % 0.7 % Normal 0.0-1.0 Immature Granulocyte % 0.5 % Normal 0-3.0 Nucleated Red Blood Cell % 0.0 % Normal 0-0 Neutrophils # 6.3 10 Normal 1.5-8.5 Lymph # 1.3 10 Low 1.5-5.0 Rowan # 0.6 10 Normal 0.0-0.8 Eos # [...] Left ESRD GFR <15 on DIRECTOR OF COLLECTIONS 2 REFERENCE RANGES: <=5.6% NORMAL 5.7-6.4% SUGGESTS [...] Left ESRD GFR <15 on DIRECTOR OF COLLECTIONS Procedures Date Code Description Status 12/17/2020 72896 Office/Outpatient Established Mo d MDM 30-39 Min Completed 09/16/2020 07031 Office/Outpatient Established Mo d MDM 30-39 Min Completed Medical Devices Description No Information Available Encounters Type Date Location Provider Dx Diagnosis Office Visit 12/17/2020 11:00a [facility] KAREN Weller E11.65 Type 2 diabetes mellitus wit h hyperglycemia E78.00 Pure hypercholesterolemia, u nspecified I10 Essential (primary) hyperten pravin E66.01 Morbid (severe) obesity due to excess calories Z68.41 Body mass index [BMI] 40.0-4 4.9, adult K21.9 Gastro-esophageal reflux dis ease without esophagitis Office Visit 09/16/2020 10:30a [facility] Terrie Tapia D.O. 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 long term care (current) dr debby therapy Z79.84 intermediate frame tender (current) use of o ral hypoglycemic drugs Z79.82 intermediate frame tender (current) use of a spirin Assessments Date Code Description Provider 12/17/2020 E11.65 Type 2 diabetes mellitus with hy perglycemia KAREN Weller 12/17/2020 E78.00 Pure hypercholesterolemia, unspe cified KAREN Weller 12/17/2020 I10 Essential (primary) hypertension KAREN Weller 12/17/2020 E66.01 Morbid (severe) obesity due to e xcess calories KAREN Weller 12/17/2020 Z68.41 Body mass index [BMI]40.0-44.9, adult KAREN Weller 12/17/2020 K21.9 Gastro-esophageal reflux disease without esophagitis KAREN Weller 09/16/2020 E11.65 Type 2 diabetes mellitus with hy perglycemia Elodia Prince.OKevin 09/16/2020 E78.00 Pure hypercholesterolemia, unspe cified Elodia Lemus.O. 09/16/2020 I10 Essential (primary) hypertension Elodia Lemus.OKevin 09/16/2020 E66.01 Morbid (severe) obesity due to e xcess calories Elodia Prince.OKevin 09/16/2020 Z68.41 Body mass index [BMI]40.0-44.9, adult Elodia Lemus.OKevin 09/16/2020 Z79.899 Other care home (current) drug t herapy Elodia Lemus.OKevin 09/16/2020 Z79.84 long-term (current) use of oral hypoglycemic drugs Elodia Lemus.OKevin 09/16/2020 Z79.82 intermediate frame tender (current) use of aspir in Elodia Lemus.Nish Plan of Treatment Future Appointment(s):* 03/23/2021 9:00 am - Terrie Tapia D.O. at [facility] Functional Status Description No Information Available Mental Status Description No Information Available Referrals Description No Information Available
[2021-04-26 16:32] LABS: RSV AMPLIFICATION NEGATIVE (NEGATIVE)
[2021-04-26 16:39] LABS: ALBUMIN 3.6 GM/DL (3.2-5.2); ALT/SGPT 23 U/L (12-78); BILIRUBIN,DIRECT < 0.1 MG/DL (0.0-0.2); BILIRUBIN,TOTAL 0.5 MG/DL (0.2-1.0); BLOOD UREA NITROGEN 19 MG/DL (7-18); CALCIUM LEVEL 9.1 MG/DL (8.8-10.2); CARBON DIOXIDE LEVEL 22 MEQ/L (21-32); CHLORIDE LEVEL 106 MEQ/L (98-107); CK-MB VALUE MASS 1.4 NG/ML (<3.6); CPK CREATINE PHOSPHOKINASE 79 U/L (39-308); CREATININE FOR GFR 0.99 MG/DL (0.70-1.30); GLOMERULAR FILTRATION RATE > 60.0 (>49); GLUCOSE, FASTING 137 MG/DL (70-100); MB/CK RELATIVE INDEX 1.77 (< OR =4); POTASSIUM SERUM 4.4 MEQ/L (3.5-5.1); SODIUM LEVEL 134 MEQ/L (136-145); TOTAL PROTEIN 6.8 GM/DL (6.4-8.2); TROPONIN I < 0.02 NG/ML (< 0.10)
--- NOTE | 2021-04-26 18:31 | ECGEPIP ---
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
[2021-04-26] MEDS ORDERED: LOSARTAN 50MG TABLET PO ONE (20:05)
--- NOTE | 2021-04-26 20:06 | REPVR ---
PROCEDURE INFORMATION: Exam: MR Head Without Contrast Exam date and time: 04/26/2021 7:13 PM Age: 70 years old Clinical indication: Dizziness; Double vision TECHNIQUE: Imaging protocol: MR of the head without contrast. COMPARISON: No relevant prior studies available. FINDINGS: Brain: Mild nonspecific T2/FLAIR hyperintensities of the periventricular and deep subcortical white matter, most likely secondary to chronic small vessel ischemic change. No intracranial hemorrhage or extra-axial fluid collection. No evidence of mass effect or midline shift. No restricted diffusion to suggest acute infarct. Cerebral ventricles: Prominence of the ventricles and sulci, likely attributed to parenchymal volume loss. Bones/joints: Unremarkable. Paranasal sinuses: Normal as visualized. No acute sinusitis. Mastoid air cells: No mastoid effusion. Orbital cavity: Unremarkable. Soft tissues: Unremarkable. IMPRESSION: 1. No acute intracranial pathology. 2. Chronic findings, as above. Electronically signed by: Miguel Ospina On 04/26/2021 20:05:34 PM
--- NOTE | 2021-04-26 20:13 | REPVR ---
PROCEDURE INFORMATION: Exam: MRA Head Without Contrast; Arteriography Exam date and time: 04/26/2021 7:13 PM Age: 70 years old Clinical indication: Visual disturbance; Diplopia; Additional info: Double vision TECHNIQUE: Imaging protocol: Magnetic resonance angiography head without contrast. Exam focused on the arteries. COMPARISON: No relevant prior studies available. FINDINGS: ANTERIOR CIRCULATION: Right internal carotid artery: Intracranial segment is patent with no significant stenosis. No aneurysm. Right middle cerebral artery: No occlusion or significant stenosis. No aneurysm. Right anterior cerebral artery: No occlusion or significant stenosis. No aneurysm. Left internal carotid artery: Intracranial segment is patent with no significant stenosis. No aneurysm. Left middle cerebral artery: No occlusion or significant stenosis. No aneurysm. Left anterior cerebral artery: No occlusion or significant stenosis. No aneurysm. POSTERIOR CIRCULATION: Right vertebral artery: No occlusion or significant stenosis. No aneurysm. Left vertebral artery: No occlusion or significant stenosis. No aneurysm. Basilar artery: No occlusion or significant stenosis. No aneurysm. Right posterior cerebral artery: No occlusion or significant stenosis. No aneurysm. Left posterior cerebral artery: Short segment mild to moderate stenosis of the mid to posterior left LINING MAKER HAND. Left LINING MAKER HAND is otherwise patent. IMPRESSION: 1. No MRA evidence of intracranial arterial occlusion or severe stenosis. 2. Short segment mild to moderate stenosis of the mid to posterior left LINING MAKER HAND. Electronically signed by: Miguel Ospina On 04/26/2021 20:12:50 PM
[2021-04-26] MEDS ORDERED: ASPIRIN 81 MG CHEW TABLET PO ONE (20:35)
[2021-04-26] MEDS ORDERED: HumaLOG INSULIN (NovoLOG) PER UNIT SC SCH (21:00)
[2021-04-26] MEDS ORDERED: MOM 30ML SUSPENSION UDC PO PRN (21:50)
[2021-04-26] MEDS ORDERED: MAALOX 30 ML SUSP *UDC PO PRN (21:50)
[2021-04-26] MEDS ORDERED: DEXTROSE 50% 50 ML SYRINGE IV PRN (21:55)
[2021-04-26] MEDS ORDERED: GLUCOSE 4GM CHEW TABLET PO PRN (21:55)
[2021-04-26] MEDS ORDERED: GLUCAGON INJ 1MG VIAL SC PRN (21:55)
--- NOTE | 2021-04-26 21:57 | HPEPDOC ---
General Date of Admission 04/26/21 Date of Service: Apr 26, 2021 Attending Physician: MING AMBRIZ MD Chief Complaint The patient is a 70-year-old male admitted with a reason for visit of Diploplia. Source: Patient History of Present Illness History of present illness: Mr. Ham is a 70 year old male presenting to the Emergency department for double vision and feeling off balance for a duration of 5 days (04/22/21). He presented to [facility] on 04/23/[address] where he had a CT of his head and neck done which were both negative. He told me this evening that he left AMA because they were unable to order a head MRI. He presents to the [facility] ED today because he would like further workup. Mr. Ham first remembers having double vision on 04/22/21 while he was driving home from [place]. He denies blurred vision, loss of vision, facial droop, slurred speech, numbness, tingling, muscle weakness, chest pain, or palpitations. He bought an eye patch at [facility] [employer] and has been wearing it over his left eye for the last few days because it helps with his double vision. He has had three falls in the last year but denies hitting his head. He ambulates at home without a walker or cane. In the ED, he was found to have a 6th cranial nerve palsy on physical exam. His labs are WNL and brain MRI was negative. A brain MRA showed a short segment of mild to moderate stenosis of the mid to posterior left WELFARE CENTRE MANAGER. He was also found to have hypertensive urgency. Dr. Levy was called and recommended ASA 325 and an echocardiogram. He was given one dose of losartan 100mg. 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 admits to double vision Cardiovascular: denies chest pain or palpitations Pulmonary: denies worsening shortness of breath, pain with inspiration, or wheezing Abdomen: denies nausea, vomiting, diarrhea, or blood in urine/stool Extremities: admits to chronic lower extremity edema, denies muscle weakness, numbness, or tingling. Skin: denies rashes Physical exam: General: A well nourished/hydrated male who appears his stated age. He is lying back in the ED bed in no acute distress with an eye patch over his left eye and his eye glasses on. HEENT: PERRLA, Extraocular muscles intact with the exception of CN on the right, patient is unable to abduct right eye past midline, mucous membranes are moist and pink, no lymphadenopathy noted, neck is supple Cardiovascular: regular rate and rhythm no murmurs or gallops noted. Pulses 2+ in upper extremities. Unable to feel posterior tibial or dorsalis pedis pulses. Capillary refill <2 seconds Pulmonary: Clear to auscultation bilaterally, no wheezes, rhonchi, or rales noted Abdomen: obese, soft with positive bowel sounds, non tender to deep palpation in all four quadrants Extremities: 2+ pitting edema up to knees bilaterally, no cyanosis, venous stasis skin changes are noted Neurology: CN 2-12 intact with the exception of CN 6 as stated above. Strength is 5/5 in upper and lower extremities. No facial droop or slurred speech appreciated. Psych: patient is alert and oriented x 4. Imaging: Brain MRI: 04/26/21: IMPRESSION: No acute intracranial pathology. Chronic findings, as above. Brain MRA: 04/26/21: IMPRESSION: No MRA evidence of intracranial arterial occlusion or severe stenosis. Short segment mild to moderate stenosis of the mid to posterior left WELFARE CENTRE MANAGER. Assessment: Mr. Ham is a 70 year old male with past medical history of Essential hypertension, Hyperlipidemia, Diabetes mellitus, and GERD who presented to the Emergency department for double vision and feeling off balance for a duration of 5 days. In the ED, he was found to have a 6th cranial nerve palsy on physical exam as well as hypertensive urgency. He is being admitted for further workup and treatment. 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 -MRI/MRA results as above, negative for stroke -Dr. Levy was called in the ED and recommended ASA 325mg dose and an echocardiogram. 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 -Neurology consulted, we appreciated Dr. Levy's input on this patient. He did not believe that steroids were indicated in this patient and ordered an echocardiogram as part of the stroke workup. -patient is unable to abduct right eye past midline -will continue to control blood glucose levels, last hemoglobin A1C Mar 2021: 6.4. Goal is <8 -Lipid panel pending Hypertensive urgency -patient's blood pressure is currently 188/97 -He was given a dose of Losartan 100mg -Will give patient a 5mg IV dose of Hydralazine. -if patient continues to have hypertension, will add on HCTZ 25 to daily regimen Elevated TSH -TSH 4.300 -free T4 results pending Diabetes mellitus -continue with sliding scale insulin -FSBG AC/HS -continue consistent carbohydrate diet -fasting glucose is 137 Hyperlipidemia -continue atorvastatin -lipid panel results pending GERD -continue famotidine DVT prophylaxis: -continue heparin Disposition: Mr. Ham states he would like to be DNR/DNI, he was not sure if he had filled out a MOLST form. This will need to be followed up on in the AM. Home Medications Scheduled Aspirin (Aspirin EC) 81 Mg Tablet.dr, 81 MG PO DAILY, (Reported) Atorvastatin Calcium (Atorvastatin Calcium) 40 Mg Tablet, 40 MG PO DAILY, (Reported) Dapagliflozin Propanediol (Farxiga) 10 Mg Tablet, 10 MG PO DAILY, (Reported) Hydralazine HCl (Hydralazine HCl) 50 Mg Tablet, 50 MG PO TID Isosorbide Dinitrate (Isosorbide Dinitrate) 20 Mg Tablet, 20 MG PO TID Losartan Potassium (Losartan Potassium) 100 Mg Tablet, 100 MG PO DAILY, (Reported) Naproxen Sodium (Aleve) 220 Mg Tablet, 440 MG PO DAILY, (Reported) Semaglutide (Rybelsus) 14 Mg Tablet, 14 MG PO DAILY, (Reported) Scheduled PRN Famotidine (Famotidine) 20 Mg Tablet, 20 MG PO BID PRN for HEARTBURN, (Reported) Allergies Coded Allergies: No Known Allergies (Verified , 05/23/19) A-FIB/CHADSVASC A-FIB History Current/History of A-Fib/PAF?: No Current PO Anticoag Therapy: No Vital Signs Vital Signs Date Time Temp Pulse Resp B/P (MAP) Pulse Ox O2 Delivery O2 Flow Rate FiO2 04/26/21 21:46 82 16 188/97 (127) 95 Room Air 04/26/21 18:22 98.4 Laboratory Data Labs 24H Laboratory Tests 2 04/26/21 15:38: Anion Gap 6L, Glomerular Filtration Rate > 60.0, Calcium Level 9.1, Total Bilirubin 0.5, Direct Bilirubin < 0.1, Aspartate Amino Transf (AST/SGOT) 20, Alanine Aminotransferase (ALT/SGPT) 23, Alkaline Phosphatase 101, Total Creatine Kinase 79, Creatine Kinase MB 1.4, Creatine Kinase MB Relative Index 1.77, Troponin I < 0.02, Total Protein 6.8, Albumin 3.6, Albumin/Globulin Ratio 1.1, Thyroid Stimulating Hormone (TSH) 4.300H 04/26/21 15:39: Immature Granulocyte % (Auto) 0.5, Neutrophils (%) (Auto) 79.1H, Lymphocytes (%) (Auto) 13.3L, Monocytes (%) (Auto) 5.3, Eosinophils (%) (Auto) 1.2, Basophils (%) (Auto) 0.6, Neutrophils # (Auto) 7.6, Lymphocytes # (Auto) 1.3L, Monocytes # (Auto) 0.5, Eosinophils # (Auto) 0.1, Basophils # (Auto) 0.1, Nucleated Red Blood Cells % (auto) 0.0, Prothrombin Time 12.8, Prothromb Time International Ratio 0.93, Activated Partial Thromboplast Time 29.8 04/26/21 15:41: Coronavirus (COVID-19)(PCR) NEGATIVE, Influenza Type A (RT-PCR) NEGATIVE, Influenza Type B (RT-PCR) NEGATIVE, Respiratory Syncytial Virus (PCR) NEGATIVE CBC/BMP Laboratory Tests 04/26/21 15:38 04/26/21 15:39 Plan / VTE VTE Prophylaxis Ordered?: Yes GME ATTESTATION GME ATTESTATION My faculty preceptor for this patient encounter was physically present during the encounter and was fully available. All aspects of the patient interview, examination, medical decision making process, and medical care plan development were reviewed and approved by the faculty preceptor. The faculty preceptor is aware and concurs with the plan as stated in the body of this note and will attest to such by his/her cosignature. ATTENDING NOTE IJey, have independently examined this patient and performed my own physical exam, as well as reviewed the documentation and edited where necessary. I have discussed in detail with the resident / student the findings and plan of treatment as documented by the resident / student and edited their note. I agree with their findings and treatment plan and have edited their documentation. I will continue to follow the patient during this hospital stay. RUPA RODRIGUEZ DO Apr 26, 2021 21:57 MING AMBRIZ MD Apr 28, 2021 04:29
--- OUTSIDE RECORDS SUMMARY | 2021-04-26 22:07 | CCD ---
Author Author [facility] Organization [facility] Address Unknown Phone Unavailable Care Team Providers Care Detective And Intelligence Analyst Name Role Phone RASHIDA WEISS MD Unavailable [...] Unavailable Unavailable LEANDRA-PRESTON, IVANA DO Unavailable Unavailable LEANDRA-PRESTNO, IVANA DO Unavailable Unavailable LEANDRA-PRESTON, IVANA DO [...] Unavailable Enma, Filipe PA Unavailable Unavailable Enma, Filiep PA Unavailable Unavailable Enma, Filipe PA Unavailable [...] is protected by Article 27-F of the [facility] Public Health law. If you continue you may have access to information: Regarding HIV / AIDS; Provided by facilities licensed or operated by the [facility] Office of Mental Health; or Provided by the [facility] Office for People With Developmental Disabilities. If such information is present, then the following [facility] mandated warning applies: This information has been [...] law may result in a fine or group home sentence or both. A general authorization for the release of medical or other information is NOT sufficient authorization for further disc losure. Family History Family Member Name Family Member Gender Family Member Status Date o f Status Description Data Source(s) Unknown Unknown Problem [facility] ([facility]) Unknown Male Problem 07/03/1999 12:00:00 AM EST [facility] (Family [facility]) Related to Papermill and smoking Unknown Unknown Problem [facility] ([facility]) Encounters Encounter Providers Location Date Indications Data Source(s ) Emergency Attender: SRINIVAS STACKttender : RASHIDA WEISS MD EMERGENCY ROOM- EMERGENCY ROOM 04/23/2021 07:58:00 PM EDT - 04/23/2021 07:58:00 PM [facility] Outpatient Attender: IVANA LESLIE DO [facility] 03/23/2021 09:00:00 AM EDT [facility] (Famil y Medicine [facility]) Outpatient Attender: Filipe JONES Family [facility] 12/17/2020 11:00:00 AM EDT [facility] ([facility]) Outpatient [address] [facility] [address] 11/25/2020 12:00:00 AM EDT eCW1 ([facility]) Outpatient Attender: IVANA LESLIE DO Family [facility] 09/16/2020 10:30:00 AM EDT [facility] ([facility]) Office Visit Attender: PERRI Oden/[place] l 07/31/2020 08:45:00 AM EST [facility] ([facility]) Outpatient Attender: PERRI Oden/[place]/Reind l 07/17/2020 07:45:00 AM EST [facility] ([facility]) Office Visit Attender: Filipe JONES Family Medicine [facility] 06/18/2020 09:20:00 AM EST [facility] ([facility]) Outpatient Attender: IVANA LESLIE DO [facility] 03/18/2020 10:00:00 AM EDT [facility] ([facility]) Medications Medication Brand Name Start Date Product [...] AM EDT active Efudex 5 % eCW1 ([facility]) Rybelsus Rybelsus 09/16/2020 12:00:00 AM EDT ORAL [...] type / Coverage type Policy ID Covered democrat ID Covered democrat's relationship to winn Policy Winn Plan Information [facility] [id number] SP [id number] MEDICARE [id number] SP [id number] Q22 [facility] [id number] S [id number] Medicare [place] Medicare Primary [id number] Self [id number] [place] MEDICARE DIVISION [id number] S [id number] Medicare [place] Medicare Primary [id number] Self [id number] [place]IC[place] [id number] S [id number] Medicare [place] Medicare Primary [id number] Self [id number] Medicare [place] Medicare Primary [id number] Self [id number] [employer] Medigap Part B [id number] Self [id number] Umr/Uhc/[employer]om[employer] Medigap Part B [id number] Self [id number] Medicare Natl Gov't Servi Medicare Primary [id number] [id number] Self 2 [id number] Medicare [place] Medicare Primary [id number] Self [id number] [employer] Medigap Part B [id number] .0 Self [id number] Medicare [place] Medicare Primary [id number] Self [id number] [employer] Medigap Part B [id number] .0 Self [id number] Medicare [place] Medicare Primary [id number] Self [id number] [employer] Medigap Part B [id number] .0 Self [id number] Medicare [place] Medicare Primary [id number] Self [id number] [employer] Commercial [id number] S elf [id number] [employer] Commercial [id number] S elf [id number] [employer] Commercial [id number] S elf [id number] [employer] Commercial [id number] S elf [id number] [employer] Commercial [id number] S elf [id number] [employer] Commercial [id number] Self POMCO [id number] S [id number] UMR [facility] [id number] SP [id number] MEDICARE [id number] SP [id number] Q22 UMR [facility] [id number] SP [id number] UMR [id number] S [id number] UMR O [id number] S [id number] MEDICARE [id number] S [id number] Q22 Medicare [place] Medicare Primary [id number] Self [id number] [employer] Medigap Part B [id number] Self [id number] Umr Medigap Part B [id number] Self [id number] Problems, Conditions, and Diagnoses Code Display Name Description Problem Type Effective Dates Data Source(s) Z85.828 [id number] History of nonmelanoma skin cancer Proble m 11/25/2020 12:00:00 AM EDT eCW1 ([facility]) Surgeries/Procedures Procedure Description Date Indications Data Source(s) [...] .6-1CM Scalp/Neck/Hands/Feet/Genitalia 07/24/2020 12:00:00 AM EST [facility] ([facility]) Layer Closure Wound < 2.6CM Neck/Hands/Feet/Ext Genitalia 07/24/2020 12:00:00 AM EST [facility] ([facility]) Results ID Date Data Source [id number] 04/26/2021 12:16:00 PM EDT [facility] Patient: ALISA FARIASati on Report - Physicians/[facility].VisitID: [id number] [place] [address] [phone], MRegistration Date/Time: 04/23/2021 18:49 Weight:127 kg (S). [...] 04/23/2021 23:34) Addenda for ALISA FARIAS VisitID: [id number] Date: 04/23/2021 04/26/2021 12:13Spoke to nurse from Dr. Cervantes's office who is requesting ER chart. Referred to medical records. (Electronically signed by Adriana Connelly R.N. 04/26/2021 12:13) Name Value Range Interpretation Code Description Data Leila rce(s) Supporting Document(s) ID Date Data Source [id number] 04/23/2021 08:55:00 PM [facility] WITHOUT CONTRAST DATE OF [...] rce(s) Supporting Document(s) ID Date Data Source [id number] 04/23/2021 09:25:00 PM EDT [facility] TSYS[facility] [id number] Name Value Range Interpretation Code Description Data Leila rce(s) Supporting Document(s) ERYTHROCYTE SEDIMENTATION RATE 13 mm/hr 0-20 [facility] ID Date Data Source [id number] 04/23/2021 08:42:00 PM EDT [facility] TSYSORDER [id number] Name Value Range Interpretation Code Description Data Leila rce(s) Supporting Document(s) PARTIAL THROMBOPLASTIN TIME 25.4 SECONDS 21.2-27.3 [facility] ID Date Data Source [id number] 04/23/2021 08:42:00 PM EDT [facility] TSYSORDER [id number] Name Value Range Interpretation Code Description Data Leila rce(s) Supporting Document(s) PROTHROMBIN TIME (PATIENT) 10.2 SECONDS 9.1-11.6 [facility] INR 0.98 0.87-1.06 [facility] ID Date Data Source [id number] 04/23/2021 08:35:00 PM EDT [facility] TSYSORDER [id number] Name Value Range Interpretation Code Description Data Leila rce(s) Supporting Document(s) C REACTIVE PROTEIN 2.8 mg/L 0.0-3.0 [facility] ID Date Data Source [id number] 04/23/2021 08:35:00 PM EDT [facility] TSYSORDER [id number] Name Value Range Interpretation Code Description Data Leila rce(s) Supporting Document(s) MAGNESIUM 2.1 mg/dL 1.8-2.4 [facility] ID Date Data Source [id number] 04/23/2021 08:35:00 PM EDT [facility] TSYSORDER [id number] Name Value Range Interpretation Code Description Data Leila rce(s) Supporting Document(s) GLUCOSE 137 mg/dL 74-106 H [facility] BLOOD UREA NITROGEN 17 mg/dL 7-18 [facility] ital CREATININE 1.02 mg/dl 0.70-1.30 [facility] SODIUM 134 mmol/L 136-145 L [facility] POTASSIUM 3.8 mmol/L 3.5-5.1 [facility] CHLORIDE 99 mmol/L 98-107 [facility] CO2 24 mmol/L 21-32 [facility] CALCIUM 8.9 mg/dL 8.5-10.1 [facility] ANION GAP 11.0 mmol/L 5-12 [facility] GLOMERULAR FILTRATION RATE 73 mL/min [facility] GFR IS CALCULATED IN mL/min/1.73m2 DOMONIQUE L FUNCTION: >90MILDLY DECREASED: 60-89MILDY TO MODERATELY DECREASED: 45-59 MODERATELY TO SEVERELY DECREASED: 30-44SEVERELY DECREASED: 15-29RENAL FAILURE: <15 AST 13 U/L 15-37 [facility] ALT 22 U/L 16-63 [facility] ALKALINE PHOSPHATASE 107 U/L 46-116 [facility] pital TOTAL BILIRUBIN 0.5 mg/dL 0.2-1.0 [facility] TOTAL PROTEIN 7.7 g/dL 6.4-8.2 [facility] ALBUMIN 3.8 gm/dL 3.4-5.0 [facility] ID Date Data Source [id number] 04/23/2021 08:29:00 PM EDT [facility] TSYSORDER [id number] Name Value Range Interpretation Code Description Data Leila rce(s) Supporting Document(s) COVID-19 NEGATIVE NEGATIVE [facility] Negative results should be treated as [...] are for the indentification of SARS-CoV-2 RNA. MosTCCO-ShP-5 RNA is generally detectable in respiratorysamples during the actue phase of infection. ID Date Data Source [id number] 04/23/2021 08:13:00 PM EDT [facility] TSYSORDER [id number] Name Value Range Interpretation Code Description Data Leila rce(s) Supporting Document(s) WHITE BLOOD COUNT 8.9 K/mm3 4.0-10.0 [facility] al RED BLOOD COUNT 5.48 M/mm3 4.50-6.00 [facility] HEMOGLOBIN 16.1 gm/dL 14.0-18.0 [facility] HEMATOCRIT 45.5 % 42.0-54.0 [facility] MEAN CELL VOLUME 83.0 fl 80-96 [facility] MEAN CORPUSCULAR HEMOGLOBIN 29.4 pg 27.0-31.0 [facility] MEAN CORPUSCULAR HGB CONC 35.4 g/dl 32.0-36.0 [facility] RED CELL DISTRIBUTION WIDTH 12.8 % 10.0-14.5 [facility] PLATELET COUNT 190 K/mm3 172-450 [facility] MEAN PLATELET VOLUME 10.2 fl 9.0-13.0 [facility] pital GRAN % 71.9 % 50-80.0 [facility] IG% 0.2 % 0.0-0.2 [facility] LYMPH % 19.2 % 25.0-50.0 L [facility] MONO % 6.1 % 2.0-10.0 [facility] EOS % 2.0 % 0-5.0 [facility] BASO % 0.6 % 0.0-2.0 [facility] GRAN # 6.4 K/mm3 2.0-8.00 [facility] IG# 0.0 K/mm3 0.0-0.2 [facility] LYMPH # 1.7 K/mm3 1.0-5.0 [facility] MONO # 0.5 K/mm3 0.10-1.20 [facility] EOS # 0.2 K/mm3 0.0-0.5 [facility] BASO # 0.1 K/mm3 0.0-0.2 [facility] ID Date Data Source [id number] 03/17/2021 08:10:00 AM EDT MED[facility] ([facility]) Name Value Range Interpretation Code Description Data Leila rce(s) Supporting Document(s) Hemoglobin A1c 6.4 % Normal (applies to non-numeric r esults) [facility]) <content>REFERENCE RANGES:</content><br/ ><content></content>
<content><=5.6% NORMAL</content>
<content>5.7-6.4% SUGGESTS IMPAIRED GLUCOSE METABOLISM/PREDIABETIC</content>
<content>>= 6.5% ABNORMAL</content>
<content></content> Estimated Average Glucose 137 mg/dL 60-110 Above high normal [facility] ([facility]) ID Date Data Source [id number] 03/17/2021 08:10:00 AM EDT [facility] ([facility]) Name Value Range Interpretation Code Description Data Leila rce(s) Supporting Document(s) Blood Urea Nitrogen 17 mg/dL 7-18 Normal (applies to non-nume brandy results) [facility] ([facility]) Glucose, Fasting 115 mg/dL 70-100 Above high normal [facility] ([facility]) Glomerular Filtration Rate Laboratory test result Normal (applies to non- numeric results) [facility] ([facility]) <content>Units are mL/min/1.73 m2</content>
<content></content>
<content>Chronic Kidney Disease Staging per NKF:</content>
<content></content>
<content>Stage I & II GFR >=60 Normal to Mildly Decreased</content>
<content>Stage III GFR 30- 59 Moderately Decreased</content>
<content>Stage IV GFR 15-29 Severely Decreased</content>
<content>Stage V GFR <15 Very Little GFR Left</content>
<content>ESRD GFR <15 on TUBE SORTER</content>
<content></content> Sodium Level 133 meq/L 136-145 Below low normal [facility] ([facility]) Creatinine For GFR 0.99 mg/dL 0.70-1.30 Normal (applies to non -numeric results) [facility] ([facility]) Chloride Level 101 meq/L 98-107 Normal (applies to non-numeric r esults) [facility] ([facility] [...] Gap 6 meq/L 8-16 Below low normal [facility] ( [facility]) ID Date Data Source [id number] 12/15/2020 01:27:00 PM EDT MED[facility] ([facility]) Name Value Range Interpretation Code Description Data Leila rce(s) Supporting Document(s) Red Blood Count 5.76 10 4.30-6.10 Normal (applies to non-numeric results) [facility] ([facility]) White Blood Count 8.5 10 4.0-10.0 Normal (applies to non-numeri c results) [facility] ([facility]) Hemoglobin 17.0 g/dL 13.5-17.5 Normal (applies to non-numeric resul ts) [facility] ([facility]) Hematocrit 50.9 % 42.0-52.0 Normal (applies to non-numeric resul ts) [facility] ([facility]) Mean Corpuscular Volume 88.4 fl 80.0-96.0 Normal ( applies to non-numeric results) [facility] ([facility]) Red Cell Distribution Width 13.2 % 11.5-14.5 Norm al (applies to non-numeric results) [facility] ([facility]) Mean Corpuscular Hemoglobin 29.5 pg 27.0-33.0 Norm al (applies to non-numeric results) [facility] ([facility]) Mean Corpuscular HGB Conc 33.4 g/dL 32.0-36.5 Normal (applies to non-numeric results) [facility] ([facility]) Platelet Count, Automated 169 10 150-450 Normal (applies to non-numeric results) [facility] ([facility]) Lymph % 15.1 % 24.0-44.0 Below low normal [facility] ( [facility]) Neutrophils % 74.5 % 36.0-66.0 Above high normal [facility] ([facility]) Glascock % 7.5 % 2.0-8.0 Normal (applies to [...] [facility]) [place] # 0.6 10 0.0-0.8 Normal (applies to [...] [facility]) ID Date Data Source [id number] 12/15/2020 01:27:00 PM EDT [facility] ([facility]) Name Value Range Interpretation Code Description Data Leila rce(s) Supporting Document(s) Glucose, Fasting 111 mg/dL 70-100 Above high normal [facility] ([facility]) Blood Urea Nitrogen 18 mg/dL 7-18 Normal (applies to non-nume brandy results) [facility] ([facility]) Glomerular Filtration Rate Laboratory test result Normal (applies to non- numeric results) [facility] ([facility]) <content>Units are mL/min/1.73 m2</content>
<content></content>
<content>Chronic Kidney Disease Staging per NKF:</content>
<content></content>
<content>Stage I & II GFR >=60 Normal to Mildly Decreased</content>
<content>Stage III GFR 30- 59 Moderately Decreased</content>
<content>Stage IV GFR 15-29 Severely Decreased</content>
<content>Stage V GFR <15 Very Little GFR Left</content>
<content>ESRD GFR <15 on TUBE SORTER</content>
<content></content> Creatinine For GFR 1.03 mg/dL 0.70-1.30 Normal (applies to non -numeric results) [facility] ([facility]) Carbon Dioxide Level 22 meq/L 21-32 Normal (applies to non-num constance results) [facility] Potassium Serum 4.4 meq/L 3.5-5.1 Normal (applies to non-numeric results) [facility] ([facility]) Chloride Level 103 meq/L 98-107 Normal (applies to non-numeric r esults) [facility] ([facility]) Sodium Level 134 meq/L 136-145 Below low normal [facility] [...] 45-117 Normal (applies to non-num constance results) [facility] ([facility] [...] [facility]) ID Date Data Source [id number] 12/15/2020 01:27:00 PM EDT [facility] ([facility]) Name Value Range Interpretation Code Description Data [...] [facility]) ID Date Data Source [id number] 12/15/2020 01:27:00 PM EDT [facility] ([facility]) Name Value Range Interpretation Code Description Data Leila rce(s) Supporting Document(s) Estimated Average Glucose 146 mg/dL 60-110 Above high normal [facility] ([facility]) Hemoglobin A1c 6.7 % Normal (applies to non-numeric r esults) [facility] ([facility]) <content>REFERENCE RANGES:</content><br/ ><content></content>
<content><=5.6% NORMAL</content>
<content>5.7-6.4% SUGGESTS IMPAIRED GLUCOSE METABOLISM/PREDIABETIC</content>
<content>>= 6.5% ABNORMAL</content>
<content></content> ID Date Data Source [id number] 09/09/2020 08:12:00 AM EST [facility] ([facility]) Name Value Range Interpretation Code Description Data Leila rce(s) Supporting Document(s) Hemoglobin A1c 7.1 % Normal (applies to non-numeric r esults) [facility] ([facility]) <content>REFERENCE RANGES:</content><br/ ><content></content>
<content><=5.6% NORMAL</content>
<content>5.7-6.4% SUGGESTS IMPAIRED GLUCOSE METABOLISM/PREDIABETIC</content>
<content>>= 6.5% ABNORMAL</content>
<content></content> Estimated Average Glucose 157 mg/dL 60-110 Above high normal [facility] ([facility]) ID Date Data Source [id number] 09/09/2020 08:12:00 AM EST [facility] ([facility]) Name Value Range Interpretation Code Description Data Leila rce(s) Supporting Document(s) Glucose, Fasting 135 mg/dL 70-100 Above high normal [facility] ([facility]) Blood Urea Nitrogen 19 mg/dL 7-18 Above high normal [facility] ([facility]) Glomerular Filtration Rate Laboratory test result Normal (applies to non- numeric results) [facility] ([facility]) <content>Units are mL/min/1.73 m2</content>
<content></content>
<content>Chronic Kidney Disease Staging per NKF:</content>
<content></content>
<content>Stage I & II GFR >=60 Normal to Mildly Decreased</content>
<content>Stage III GFR 30- 59 Moderately Decreased</content>
<content>Stage IV GFR 15-29 Severely Decreased</content>
<content>Stage V GFR <15 Very Little GFR Left</content>
<content>ESRD GFR <15 on TUBE SORTER</content>
<content></content> Creatinine For GFR 1.08 mg/dL 0.70-1.30 [...] [facility]) ID Date Data Source [id number] 07/24/2020 02:48:00 PM EST [facility] ([facility] ) Name Value Range Interpretation Code Description Data Leila rce(s) Supporting Document(s) Surgical pathology study Laboratory test result [facility] ([facility], ) FINAL DIAGNOSIS Skin, right side [...] MD 07/28/2020 1121 ID Date Data Source [id number] 07/01/2020 12:00:00 AM EST [facility]pe [place] [facility] Patient Name: ALISA FARIAS [id number] Date of : 1950[address] Date of Exam: 07/01/2020MATTY Dickerson [phone]#: Fax: [phone] EXAM: CT BRAIN WITHOUT CONTRASTCLINICAL INFORMATION: History of repeated falls, worse with eyes closed.Evaluate for cerebellar abnormality.No comparison brain imaging.TECHNIQUE: Low dose [address] scanning of the brain was obtainedfrom the skull base to the cerebral convexities using 5 mm incrementswithout intravenous contrast and windowed using both bone and soft tissuesettings.CT FINDINGS:Digital preliminary purchasing specialist radiograph is unremarkable. Bone window settingsdemonstrate mild [...] volume loss. No acuteintracranial abnormality.Accredited by the [place] [employer] in [place].SANJANA Lozano/Pramod you for referring ALISA FARIAS to our office. Electronically Signed - CHEMA SEVERINO MD 07/01/20 13:31 Name Value Range Interpretation Code Description Data Leila rce(s) Supporting Document(s) ID Date Data Source [id number] 06/10/2020 09:08:00 AM EST [facility] ([facility]) Name Value Range Interpretation Code Description Data [...] [facility]) ID Date Data Source [id number] 06/10/2020 09:08:00 AM EST [facility] ([facility]) Name Value Range Interpretation Code Description Data [...] [facility]) Glascock % 6.4 % 0.0-5.0 Above high normal [...] [facility]) [place]ock # 0.5 10 0.0-0.8 Normal (applies to [...] [facility]) ID Date Data Source [id number] 06/10/2020 09:08:00 AM EST [facility] ([facility]) Name Value Range Interpretation Code Description Data Leila rce(s) Supporting Document(s) PSA Total 0.1 ng/mL 0.0-4.0 Normal (applies to non-numeric resul ts) [facility] ([facility]) [place] ECLIA methodology. . According to the [place] [employer], Serum PSA should decrease and [...] result Normal (applies to non- numeric results) [facility] ([facility] [facility]) . The percent free PSA is performed on a reflex basis only when the total PSA is between 4.0 and 10.0 ng/mL. Performed at: - [facility] [address] [id number] Transition Assistant: La Maurice MD, Phone: [phone] ID Date Data Source [id number] 06/10/2020 09:08:00 AM EST [facility] ([facility]) Name Value Range Interpretation Code Description Data Leila rce(s) Supporting Document(s) Creatinine, Urine 195.0 mg/dL Normal (applies to non-numer ic results) [facility] ([facility]) Malb Urine Siemens 119.0 mg/L Normal (applies to non-numer ic results) [facility] ([facility]) Glynn/Creat Ratio 61.0 MCG/MG 0.0-30.0 Above high normal [facility] ([facility]) THE [place] STATES THAT MICROALBUMINURIA IS PRESENT IF THE MICROALBUMIN/CREATININE RATIO EXCEEDS 30 MCG/MG. THE THRESHOLD FOR CLINICAL ALBUMINURIA IS REACHED AT 300 MCG/MG. THE CLASSIFICATION OF A PATIENT SHOULD BE BASED UPON AT LEAST 2 OF 3 ABNORMAL RESULTS ON SPECIMENS COLLECTED WITHIN A 3 TO 6 MONTH TIME FRAME. ID Date Data Source [id number] 06/10/2020 09:08:00 AM EST [facility] ([facility]) Name Value Range Interpretation Code Description Data Leila rce(s) Supporting Document(s) Hemoglobin A1c 7.8 % Normal (applies to non-numeric r esults) [facility]) <content>REFERENCE RANGES:</content><br/ ><content></content>
<content><=5.6% NORMAL</content>
<content>5.7-6.4% SUGGESTS IMPAIRED GLUCOSE METABOLISM/PREDIABETIC</content>
<content>>= 6.5% ABNORMAL</content>
<content></content> Estimated Average Glucose 177 mg/dL 60-110 Above high normal [facility] ([facility]) ID Date Data Source [id number] 06/10/2020 09:08:00 AM EST [facility] ([facility]) Name Value Range Interpretation Code Description Data [...] result Normal (applies to non- numeric results) [facility] ([facility]) <content>Units are mL/min/1.73 m2</content>
<content></content>
<content>Chronic Kidney Disease Staging per NKF:</content>
<content></content>
<content>Stage I & II GFR >=60 Normal to Mildly Decreased</content>
<content>Stage III GFR 30- 59 Moderately Decreased</content>
<content>Stage IV GFR 15-29 Severely Decreased</content>
<content>Stage V GFR <15 Very Little GFR Left</content>
<content>ESRD GFR <15 on TUBE SORTER</content>
<content></content> Sodium Level 135 meq/L 136-145 Below [...] Gap 6 meq/L 8-16 Below low normal [facility] Calcium Level 9.1 mg/dL 8.8-10.2 Normal (applies to non-numeric re sults) [facility] ([facility]) Bilirubin,Total 0.9 mg/dL 0.2-1.0 Normal (applies to non-numeric results) [facility] ([facility]) Alt/SGPT 23 U/L 12-78 Normal (applies to non-numeric resul ts) [facility] ([facility]) Alkaline Phosphatase 122 U/L 45-117 Above high normal [facility] ([facility]) Total Protein 7.4 GM/DL 6.4-8.2 Normal (applies to non-numeric re sults) [facility] ([facility]) Albumin/Globulin Ratio 1.1 Normal (applies to non-n umeric results) [facility] ([facility]) Albumin 3.9 GM/DL 3.2-5.2 Normal (applies to non-numeric resul ts) [facility]) ID Date Data Source [id number] 03/13/2020 09:04:00 AM EDT [facility] ([facility]) Name Value Range Interpretation Code Description Data Leila rce(s) Supporting Document(s) PSA Total 0.1 ng/mL 0.0-4.0 Normal (applies to non-numeric resul ts) [facility]) Bethanie ECLIA methodology. . According to the [place] [employer], Serum PSA should decrease and [...] result Normal (applies to non- numeric results) [facility]) . The percent free PSA is performed on a reflex basis only when the total PSA is between 4.0 and 10.0 ng/mL. Performed at: RN - [facility] [address] [id number] Transition Assistant: La Maurice MD, Phone: [phone] ID Date Data Source [id number] 03/13/2020 09:04:00 AM EDT [facility] ([facility]) Name Value Range Interpretation Code Description Data Leila rce(s) Supporting Document(s) Thyroid Stimulating Hormone 2.890 uIU/ML 0.358-3.740 Norm al (applies to non- numeric results) [facility] ([facility]) Free T4 1.05 ng/dL 0.76-1.46 Normal (applies to non-numeric resul ts) [facility] ([facility]) ID Date Data Source [id number] 03/13/2020 09:04:00 AM EDT [facility] ([facility]) Name Value Range Interpretation Code Description Data Leila rce(s) Supporting Document(s) Estimated Average Glucose 183 mg/dL 60-110 Above high normal [facility] ([facility]) Hemoglobin A1c 8.0 % Normal (applies to non-numeric r esults) [facility] ([facility]) <content>REFERENCE RANGES:</content><br/ ><content></content>
<content><=5.6% NORMAL</content>
<content>5.7-6.4% SUGGESTS IMPAIRED GLUCOSE METABOLISM/PREDIABETIC</content>
<content>>= 6.5% ABNORMAL</content>
<content></content> ID Date Data Source [id number] 03/13/2020 09:04:00 AM EDT [facility] ([facility]) Name Value Range Interpretation Code Description Data Leila rce(s) Supporting Document(s) Glucose, Fasting 269 mg/dL 70-100 Above high normal [facility]) Creatinine For GFR 1.19 mg/dL 0.70-1.30 Normal (applies to non -numeric results) [facility] ([facility]) Blood Urea Nitrogen 22 mg/dL 7-18 Above high normal [facility] ([facility]) Glomerular Filtration Rate Laboratory test result Normal (applies to non- numeric results) [facility] ([facility]) <content>Units are mL/min/1.73 m2</content>
<content></content>
<content>Chronic Kidney Disease Staging per NKF:</content>
<content></content>
<content>Stage I & II GFR >=60 Normal to Mildly Decreased</content>
<content>Stage III GFR 30- 59 Moderately Decreased</content>
<content>Stage IV GFR 15-29 Severely Decreased</content>
<content>Stage V GFR <15 Very Little GFR Left</content>
<content>ESRD GFR <15 on TUBE SORTER</content>
<content></content> Potassium Serum 4.3 meq/L 3.5-5.1 Normal (applies to non-numeric results) [facility] ([facility]) Sodium Level 131 meq/L 136-145 Below low normal [facility] ([facility]) Chloride Level 103 meq/L 98-107 Normal (applies to non-numeric r esults) [facility] ([facility]) Carbon Dioxide Level 20 meq/L 21-32 Below low normal [facility] Never Smoker completed Never S moker eCW1 ([facility]) Smoking 07/17/2020 12:00:00 AM EST Non Smoker completed Non Smoke r [facility] ([facility], ) Vital Signs ID Date Data Source [id number] Name Value Range Interpretation Code Description Data Source(s) Diastolic blood pressure 82 mm[Hg] 82 mm[Hg] [facility] ([facility]) Systolic blood pressure 134 mm[Hg] 134 mm[Hg] [facility] ([facility]) Body height 70.1 [in_i] 70.1 [in_i] [facility] ([facility]) '.10" Body weight 283.00 [lb_av] 283.00 [lb_av] [facility] [...] ([facility]) [place] body weight 166 [lb_av] 166 [lb_av] [facility] T ([facility]) Systolic blood pressure 144 mm[Hg] 144 mm[Hg] [facility] ([facility]) Diastolic blood pressure 78 mm[Hg] 78 mm[Hg] [facility] ([facility]) [place] body weight 166 [lb_av] 166 [lb_av] MED[facility] [...] Body height 70.1 [in_i] 70.1 [in_i] [facility] ([facility]) 5'10.10" Body weight 286.00 [lb_av] 286.00 [lb_av] [facility] T ([facility]) Body mass index (BMI) [Ratio] 40.9 kg/m2 40.9 k g/m2 [facility] ([facility]) Body weight 286.0 [lb_av] 286.0 [lb_av] eCW1 ([facility]) Body height 72 [in_i] 72 [in_i] eCW1 ([facility]) Body mass index (BMI) [Ratio] 38.78 kg/m2 38.78 kg/m2 eCW1 ([facility]) Systolic blood pressure 132 mm[Hg] 132 mm[Hg] e CW1 ([facility]) Diastolic blood pressure 80 mm[Hg] 80 mm[Hg] eCW1 ([facility]) Systolic blood pressure 130 mm[Hg] 130 mm[Hg] M [facility] ([facility]) Diastolic blood pressure 76 mm[Hg] 76 mm[Hg] [facility] ([facility]) Body height 70.1 [in_i] 70.1 [in_i] [facility] ([facility]) 5'10.10" Body weight 294.12 [lb_av] 294.12 [lb_av] [facility] T ([facility]) Body mass index (BMI) [Ratio] 42.1 kg/m2 42.1 k g/m2 [facility] ([facility]) Heart rate 59 /min 59 /min [facility]) Respiratory rate 16 /min 16 /min [facility] ( [facility]) Body temperature 97.9 [degF] 97.9 [degF] [facility] ([facility]) Oxygen saturation in Arterial blood by Pulse oximetry 98 % 98 % [facility] ([facility]) [place] body weight 166 [lb_av] 166 [lb_av] [facility] T ([facility]) Body height 72 [in_i] 72 [in_i] [facility] ([facility], [facility] 6'0" [place] body weight 178 [lb_av] 178 [lb_av] MEDEN T ([facility], ) Systolic blood pressure 156 mm[Hg] 156 mm[Hg] M EDENT ([facility], ) Diastolic blood pressure 88 mm[Hg] 88 mm[Hg] [facility] ([facility], ) Heart rate 88 /min 88 /min [facility] ([facility], ) Respiratory rate 22 /min 22 /min [facility] ( [facility], ) Body temperature 96.7 [degF] 96.7 [degF] [facility] ([facility]) Diastolic blood pressure 94 mm[Hg] 94 mm[Hg] [facility] ([facility]) Heart rate 84 /min 84 /min [facility] ([facility]) Respiratory rate 18 /min 18 /min [facility] ( [facility]) Body temperature 98.0 [degF] 98.0 [degF] [facility] ([facility]) Body height 72 [in_i] 72 [in_i] [facility] ([facility]) 6'0" [place] body weight 178 [lb_av] 178 [lb_av] MEDEN T ([facility]) Systolic blood pressure 144 mm[Hg] 144 mm[Hg] M EDENT ([facility]) Systolic blood pressure 144 mm[Hg] 144 mm[Hg] M EDENT ([facility]) Diastolic blood pressure 88 mm[Hg] 88 mm[Hg] [facility] ([facility]) Heart rate 80 /min 80 /min [facility] ([facility]) Respiratory rate 18 /min 18 /min [facility] ( [facility]) Body temperature 97.1 [degF] 97.1 [degF] [facility] ([facility]) Body height 72 [in_i] 72 [in_i] [facility] ([facility]) 6'0" Body weight 289.00 [lb_av] 289.00 [lb_av] MED[facility] T ([facility]) Body mass index (BMI) [Ratio] 39.2 kg/m2 39.2 k g/m2 [facility] ([facility]) [place] body weight 178 [lb_av] 178 [lb_av] MED[facility] T ([facility]) Body weight 131.090 kg 131.090 kg [facility] ([facility]) Body surface area Derived from formula 2.49 m2 2.49 m2 [facility] ([facility]) Heart rate 85 /min 85 /min [facility] ([facility]) Body mass index (BMI) [Ratio] 41.7 kg/m2 41.7 k g/m2 [facility] ([facility]) Body height 70.1 [in_i] 70.1 [in_i] [facility] ([facility]) 5'.10" Body weight 291.38 [lb_av] 291.38 [lb_av] [facility] [place] body weight 166 [lb_av] 166 [lb_av] [facility] T ([facility]) Respiratory rate 18 /min 18 /min [facility] ( [facility]) Body temperature 98.9 [degF] 98.9 [degF] [facility] ([facility]) Oxygen saturation in Arterial blood by Pulse oximetry 96 % 96 % [facility] ([facility]) Systolic blood pressure 144 mm[Hg] 144 mm[Hg] [facility] ([facility]) Diastolic blood pressure 80 mm[Hg] 80 mm[Hg] [facility] ([facility]) Systolic blood pressure 138 mm[Hg] 138 mm[Hg] [facility] ([facility]) Diastolic blood pressure 84 mm[Hg] 84 mm[Hg] [facility] ([facility]) Body height 70.1 [in_i] 70.1 [in_i] [facility] ([facility]) 5'10.10" [place] body weight 166 [lb_av] 166 [lb_av] [facility] Body weight 295.31 [lb_av] 295.31 [lb_av] [facility] Body mass index (BMI) [Ratio] 42.2 kg/m2 42.2 k g/m2 [facility] ([facility]) Heart rate 66 /min 66 /min [facility] ([facility]) Body temperature 97.8 [degF] 97.8 [degF] [facility] ([facility]) Oxygen saturation in Arterial blood by Pulse oximetry 97 % 97 % [facility] ([facility]) Patient Treatment Plan of Care Planned Activity Planned Date Details Description Data Source (s) Fluorouracil 50 MG/ML Topical Cream [Efudex] 11/25/2020 12:00:00 AM EDT eCW1 ([facility])
[2021-04-26] MEDS ORDERED: FAMOTIDINE 20 MG TAB PO PRN (22:15)
[2021-04-26] MEDS ORDERED: LOSA100T50 PO (22:18)
[2021-04-26] MEDS ORDERED: ASPI-161 PO (22:18)
[2021-04-26] MEDS ORDERED: FAMO1TAB11 PO (22:18)
[2021-04-26] MEDS ORDERED: SEMA14TA PO (22:18)
[2021-04-26] MEDS ORDERED: HOME MED LIST COMPLETE! XX SCH (22:20)
[2021-04-26] MEDS ORDERED: hydrALAZINE 20MG/ML 1ML VIAL (J0360 PER 20MG) IV ONE (22:45)
[2021-04-26 23:00] VITALS: BP 190/100
[2021-04-26] MEDS: ACETAMINOPHEN TAB 650MG DOSE (2X325MG) PO PRN (23:30)
[2021-04-26 23:47] LABS: CHOLESTEROL LEVEL 112 MG/DL (<200); CHOLESTEROL RISK RATIO 3.612 (<5); FREE T4 1.15 NG/DL (0.76-1.46); HDL CHOLESTEROL 31 MG/DL (>40); LDL CHOLESTEROL 63 MG/DL (<100); NON-HDL-C 81 MG/DL; TRIGLYCERIDES LEVEL 92 MG/DL (<150)
[2021-04-27] VITALS (9 sets, daily range): BP systolic 122–196; BP diastolic 72–95
[2021-04-27] MEDS ORDERED: hydrALAZINE 20MG/ML 1ML VIAL (J0360 PER 20MG) IV ONE ×2 (01:25→06:40)
[2021-04-27] MEDS ORDERED: LABETALOL 100MG/20ML VIAL IV ONE (03:35)
[2021-04-27] MEDS: ACETAMINOPHEN TAB 650MG DOSE (2X325MG) PO PRN ×2 (03:37→08:35)
[2021-04-27] MEDS: HEPARIN SOD (PORCINE) 5000UNITS/ML 1ML VIAL/SYRINGE SC SCH ×2 (06:21→13:02)
[2021-04-27 06:52] LABS: BLOOD UREA NITROGEN 16 MG/DL (7-18); CALCIUM LEVEL 8.8 MG/DL (8.8-10.2); CARBON DIOXIDE LEVEL 23 MEQ/L (21-32); CHLORIDE LEVEL 104 MEQ/L (98-107); CREATININE FOR GFR 0.98 MG/DL (0.70-1.30); GLOMERULAR FILTRATION RATE > 60.0 (>49); GLUCOSE, FASTING 124 MG/DL (70-100); POTASSIUM SERUM 3.9 MEQ/L (3.5-5.1); SODIUM LEVEL 136 MEQ/L (136-145)
[2021-04-27] MEDS ORDERED: MORPHINE 2 MG/ML 1ML VIAL (J2270) IV ONE (07:15)
[2021-04-27] MEDS ORDERED: ISOS20TAB PO (07:48)
[2021-04-27] MEDS ORDERED: SELF1KIT MC (07:48)
[2021-04-27] MEDS ORDERED: HYDR-3911 PO (07:48)
[2021-04-27] MEDS ORDERED: METOPROLOL 5 MG/5 ML VIAL IV STA (07:53)
[2021-04-27] MEDS ORDERED: ISOSORBIDE DIN. (ISORDIL) 20 MG TAB PO ONE (08:00)
[2021-04-27] MEDS ORDERED: **hydrALAZINE** 50 MG TAB PO ONE (08:00)
[2021-04-27] MEDS: HumaLOG INSULIN (NovoLOG) PER UNIT SC SCH ×3 (08:37→18:52)
[2021-04-27] MEDS ORDERED: DOCUSATE SODIUM 100MG CAPSULE PO SCH (09:00)
[2021-04-27] MEDS ORDERED: ASPIRIN 81MG ENTERIC TABLET PO SCH (09:00)
[2021-04-27] MEDS ORDERED: LOSARTAN 50MG TABLET PO SCH (09:00)
[2021-04-27] MEDS ORDERED: ATORVASTATIN 20 MG TAB PO SCH (09:00)
--- NOTE | 2021-04-27 19:05 | REP ---
INDICATION: Diplopia, CVA. COMPARISON: None. TECHNIQUE: 2D and pulse duplex and color Doppler ultrasound evaluation of the carotid arterial system bilaterally was performed. FINDINGS: There is calcified and noncalcified plaque in both carotid bulbs and both proximal internal carotid arteries. There is no hemodynamically significant stenosis of either internal carotid artery. IMPRESSION: There is no hemodynamically significant stenosis of either internal carotid artery. <Electronically signed by Filipe Nicole > 04/27/21 [id number]
--- NOTE | 2021-04-27 19:34 | DS.PDOC ---
Discharge Summary General Date of Admission Apr 26, 2021 at 21:54 Date of Discharge 04/27/21 Discharge Summary DISCHARGE SUMMARY DICTATED JOB#[id number] Vital Signs/I&Os Vital Signs Date Time Temp Pulse Resp B/P (MAP) Pulse Ox O2 Delivery O2 Flow Rate FiO2 04/27/21 17:10 97.7 73 18 138/82 (100) 95 Room Air I&O- Last 24 Hours up to 6 AM 04/27/21 06:00 Intake Total 300 ml Output Total 550 ml Balance -250 ml Laboratory Data Labs 24H Laboratory Tests 2 04/26/21 23:07: Bedside Glucose (Misc Panel) 150H 04/27/21 05:57: Anion Gap 9, Glomerular Filtration Rate > 60.0, Calcium Level 8.8 04/27/21 12:30: Bedside Glucose (Misc Panel) 162H 04/27/21 17:48: Bedside Glucose (Misc Panel) 191H CBC/BMP Laboratory Tests 04/27/21 05:57 FSBS Laboratory Tests Test 04/26/21 23:07 04/27/21 12:30 04/27/21 17:48 Range/Units Bedside Glucose (Misc Panel) 150 162 191 80-115 MG/DL Discharge Medications Scheduled Aspirin (Aspirin EC) 81 Mg Tablet.dr, 81 MG PO DAILY, (Reported) Atorvastatin Calcium (Atorvastatin Calcium) 40 Mg Tablet, 40 MG PO DAILY, (Reported) Dapagliflozin Propanediol (Farxiga) 10 Mg Tablet, 10 MG PO DAILY, (Reported) Hydralazine HCl (Hydralazine HCl) 50 Mg Tablet, 50 MG PO TID Isosorbide Dinitrate (Isosorbide Dinitrate) 20 Mg Tablet, 20 MG PO TID Losartan Potassium (Losartan Potassium) 100 Mg Tablet, 100 MG PO DAILY, (Reported) Naproxen Sodium (Aleve) 220 Mg Tablet, 440 MG PO DAILY, (Reported) Semaglutide (Rybelsus) 14 Mg Tablet, 14 MG PO DAILY, (Reported) Scheduled PRN Famotidine (Famotidine) 20 Mg Tablet, 20 MG PO BID PRN for HEARTBURN, (Reported) Allergies Coded Allergies: No Known Allergies (Verified , 05/23/19) GAEL AGUILAR MD Apr 27, 2021 19:34
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
--- NOTE | 2021-04-28 07:26 | ECHO ---
ECHOCARDIOGRAM DATE OF PROCEDURE: 04/27/2021 Age: 70 Gender: M Height: 72 inches Weight: 284 pounds Body Surface Area: 2.48 meters squared Inpatient: PCU/Room 3215 REFERRING PHYSICIAN: Francine Ty DO INDICATION: Cerebrovascular accident (CVA) - cardiac source of embolic material. Abnormal EKG. Hypertension. MEASUREMENTS: 2D Measurements: RV - 4.6 cm LV - 4.3 cm Septum 1.2 cm Posterior wall 1.2 cm Aortic Root 4.0 cm LA - 4.2 cm LVEF 75% Doppler Measurements: AV - 1.26 m/s LVOT - 0.92 m/s LVOT diameter 2.0 cm MV-E 61, A 62, E/A ratio 1 Early mitral deceleration time 284 msec E prime medial 4.9, A prime medial 11.2, E prime lateral 4 Average E/E prime ratio 13.7/PCWP - 18.9 mmHg PV 1.0 m/s Pulmonary artery acceleration time 88 msec PASP 42 mmHg IVC - 1.6 cm COMMENTS: Normal sinus rhythm without interventricular conduction disturbance. Technically challenging study in light of the patient's body habitus but diagnostically useful information was still obtained. Mildly dilated right heart chambers with normal wall motion and Doppler evidence of moderate pulmonary hypertension. Normal inferior vena cava (IVC) size and collapse against an elevated central venous pressure. Borderline concentric left ventricular hypertrophy with hyperkinetic wall motion. Mildly dilated left atrium with grade 1 left ventricular (LV) diastolic dysfunction and current estimated mean left atrial pressure that was slightly increased. Mildly dilated aortic root. Ascending aorta not well visualized. Subtle aortic valvular sclerosis without functional abnormality. Normal-appearing mitral valvular apparatus and leaflet excursion with no posterior systolic buckling. Normal-appearing tricuspid valve with only trace insufficiency. No apparent intracardiac mass. Small circumferential pericardial effusion measuring 0.2 cm with no evidence of cardiac chamber compression.
== END 2021-04-27 19:25 | disposition home or self-care (01) | DRG 125 ==
LOC: M ED 15:06 → EDSEX 15:06 → EDBD 15:06 → M ED INP 21:54 → M PCU 22:47 → M MSPAV 04-27 17:04
PROVIDERS: ADMIT Family Medicine; ATTEND Family Medicine
DX: E11.39 Type 2 diabetes mellitus with other diabetic ophthalmic complication (principal); H49.22 Sixth [abducent] nerve palsy, left eye; I16.0 Hypertensive urgency; Z79.899 Other long term (current) drug therapy; E78.5 Hyperlipidemia, unspecified; K21.9 Gastro-esophageal reflux disease without esophagitis; Z79.82 Long term (current) use of aspirin

== ENCOUNTER → 2021-05-26 | Outpatient (CLI) | payer MEDICARE, OTHER ==
[~2021-05-26] MED LIST changes: +ASPI-161 PO; +FAMO1TAB11 PO; +HYDR-3911 PO; +ISOS20TAB PO; +LOSA100T50 PO; +SELF1KIT MC; +SEMA14TA PO
[2021-05-26 12:43] LABS: CALCIUM LEVEL 8.7 MG/DL (8.8-10.2); CREATININE FOR GFR 1.27 MG/DL (0.70-1.30); POTASSIUM SERUM 4.3 MEQ/L (3.5-5.1)
== END ==
LOC: M PLALAB 09:07
PROVIDERS: ATTEND Internal Medicine Cardiovascular Disease
DX: I10 Essential (primary) hypertension (principal)

== ENCOUNTER → 2021-06-22 | Outpatient (CLI) | payer MEDICARE, OTHER ==
[2021-06-22 11:03] LABS: BASO # 0.1 10^3/uL (0.0-0.2); BASO % 1.2 % (0.0-1.0); EOS # 0.3 10^3/uL (0.0-0.5); EOS % 3.7 % (0.0-3.0); HEMATOCRIT 47.2 % (42.0-52.0); HEMOGLOBIN 15.9 g/dl (13.5-17.5); LYMPH # 1.6 10^3/uL (1.5-5.0); MEAN CORPUSCULAR HEMOGLOBIN 29.9 pg (27.0-33.0); MEAN CORPUSCULAR HGB CONC 33.7 g/dl (32.0-36.5); MEAN CORPUSCULAR VOLUME 88.9 fl (80.0-96.0); MONO # 0.7 10^3/uL (0.0-0.8); MONO % 7.2 % (2.0-8.0); NEUTROPHILS # 6.5 10^3/uL (1.5-8.5); NEUTROPHILS % 70.1 % (36.0-66.0); PLATELET COUNT, AUTOMATED 192 10^3/uL (150-450); RED BLOOD COUNT 5.31 10^6/uL (4.30-6.10); WHITE BLOOD COUNT 9.2 10^3/uL (4.0-10.0)
[2021-06-22 11:23] LABS: HEMOGLOBIN A1c 7.5 %
[2021-06-22 11:34] LABS: MALB URINE SIEMENS 7.5 MG/L
[2021-06-22 11:50] LABS: ALBUMIN 3.6 GM/DL (3.2-5.2); BILIRUBIN,TOTAL 0.9 MG/DL (0.2-1.0); CALCIUM LEVEL 9.3 MG/DL (8.8-10.2); CHOLESTEROL RISK RATIO 4.419 (<5); CREATININE FOR GFR 1.32 MG/DL (0.70-1.30); FREE T4 1.14 NG/DL (0.76-1.46); GLOMERULAR FILTRATION RATE 57.4 (>49); POTASSIUM SERUM 4.4 MEQ/L (3.5-5.1); THYROID STIMULATING HORMONE 8.68 uIU/ML (0.358-3.740); TOTAL PROTEIN 7.4 GM/DL (6.4-8.2)
== END ==
LOC: M PLALAB 08:17
PROVIDERS: ATTEND Family Medicine
DX: E78.00 Pure hypercholesterolemia, unspecified (principal); E11.9 Type 2 diabetes mellitus without complications; I10 Essential (primary) hypertension

== ENCOUNTER → 2021-12-24 | Outpatient (REF) | payer MEDICARE, OTHER ==
[~2021-12-24] MED LIST changes: +ISOS20TA4 PO; -ISOS20TAB PO; +LOSA100T45 PO; -LOSA100T50 PO; -SEMA14TA PO; +SEMA14TA2 PO; -TRIA37.53 PO; +TRIA37.577 PO
== END ==
LOC: M SFHCDERM 17:52
PROVIDERS: ATTEND Nurse Practitioner Family
DX: L57.0 Actinic keratosis (principal)

== ENCOUNTER → 2022-01-05 | Outpatient (REF) | payer MEDICARE, OTHER | LOC: M SFHCDERM 12:38 | PROVIDERS: ATTEND Nurse Practitioner Family | DX: L57.0 Actinic keratosis (principal); D49.2 Neoplasm of unspecified behavior of bone, soft tissue, and skin ==

== ENCOUNTER → 2022-01-05 | Outpatient (CLI) | payer MEDICARE, OTHER ==
[2022-01-05 14:06] LABS: BASO % 0.4 % (0.0-1.0); EOS # 0.1 10^3/uL (0.0-0.5); EOS % 0.7 % (0.0-3.0); HEMATOCRIT 49.1 % (42.0-52.0); HEMOGLOBIN 16.3 g/dl (13.5-17.5); LYMPH # 1.3 10^3/uL (1.5-5.0); LYMPH % 13.8 % (24.0-44.0); MEAN CORPUSCULAR HEMOGLOBIN 30.1 pg (27.0-33.0); MEAN CORPUSCULAR HGB CONC 33.2 g/dl (32.0-36.5); MEAN CORPUSCULAR VOLUME 90.8 fl (80.0-96.0); MONO # 0.5 10^3/uL (0.0-0.8); MONO % 5.8 % (2.0-8.0); NEUTROPHILS # 7.3 10^3/uL (1.5-8.5); NEUTROPHILS % 78.7 % (36.0-66.0); PLATELET COUNT, AUTOMATED 194 10^3/uL (150-450); RED BLOOD COUNT 5.41 10^6/uL (4.30-6.10); WHITE BLOOD COUNT 9.3 10^3/uL (4.0-10.0)
[2022-01-05 15:40] LABS: ALBUMIN 3.7 GM/DL (3.2-5.2); ALT/SGPT 25 U/L (12-78); BILIRUBIN,TOTAL 0.9 MG/DL (0.2-1.0); BLOOD UREA NITROGEN 26 MG/DL (7-18); CARBON DIOXIDE LEVEL 29 MEQ/L (21-32); CHLORIDE LEVEL 98 MEQ/L (98-107); CHOLESTEROL LEVEL 130 MG/DL (<200); CHOLESTEROL RISK RATIO 4.062 (<5); CREATININE FOR GFR 1.21 MG/DL (0.70-1.30); FREE T4 1.57 NG/DL (0.76-1.46); GLOMERULAR FILTRATION RATE > 60.0 (>49); GLUCOSE, FASTING 178 MG/DL (70-100); HDL CHOLESTEROL 32 MG/DL (>40); LDL CHOLESTEROL 70 MG/DL (<100); NON-HDL-C 98 MG/DL; POTASSIUM SERUM 3.6 MEQ/L (3.5-5.1); SODIUM LEVEL 134 MEQ/L (136-145); TOTAL PROTEIN 7.4 GM/DL (6.4-8.2); TRIGLYCERIDES LEVEL 140 MG/DL (<150)
[2022-01-05 17:17] LABS: HEMOGLOBIN A1c 8.4 %
== END ==
LOC: M PLALAB 10:15
PROVIDERS: ATTEND Family Medicine
DX: E11.40 Type 2 diabetes mellitus with diabetic neuropathy, unspecified (principal); I10 Essential (primary) hypertension; E78.00 Pure hypercholesterolemia, unspecified

== ENCOUNTER → 2022-01-28 | Outpatient (REF) | payer MEDICARE, OTHER | LOC: M SFHCDERM 17:26 | PROVIDERS: ATTEND Dermatology | DX: L57.0 Actinic keratosis (principal); L57.8 Other skin changes due to chronic exposure to nonionizing radiation ==

== ENCOUNTER → 2022-04-08 | Outpatient (CLI) | payer MEDICARE, OTHER ==
[2022-04-08 10:33] LABS: BASO # 0.1 10^3/uL (0.0-0.2); BASO % 0.7 % (0.0-1.0); EOS # 0.1 10^3/uL (0.0-0.5); EOS % 1.5 % (0.0-3.0); HEMATOCRIT 49.8 % (42.0-52.0); HEMOGLOBIN 17.1 g/dl (13.5-17.5); LYMPH # 1.6 10^3/uL (1.5-5.0); LYMPH % 17.3 % (24.0-44.0); MEAN CORPUSCULAR HEMOGLOBIN 30.9 pg (27.0-33.0); MEAN CORPUSCULAR HGB CONC 34.3 g/dl (32.0-36.5); MEAN CORPUSCULAR VOLUME 89.9 fl (80.0-96.0); MONO # 0.6 10^3/uL (0.0-0.8); MONO % 6.1 % (2.0-8.0); NEUTROPHILS # 6.9 10^3/uL (1.5-8.5); NEUTROPHILS % 73.9 % (36.0-66.0); PLATELET COUNT, AUTOMATED 181 10^3/uL (150-450); RED BLOOD COUNT 5.54 10^6/uL (4.30-6.10); WHITE BLOOD COUNT 9.4 10^3/uL (4.0-10.0)
[2022-04-08 10:52] LABS: HEMOGLOBIN A1c 7.9 %
[2022-04-08 10:56] LABS: ALBUMIN 3.8 GM/DL (3.2-5.2); ALT/SGPT 22 U/L (12-78); BLOOD UREA NITROGEN 27 MG/DL (7-18); CALCIUM LEVEL 8.9 MG/DL (8.8-10.2); CARBON DIOXIDE LEVEL 28 MEQ/L (21-32); CHLORIDE LEVEL 101 MEQ/L (98-107); CHOLESTEROL LEVEL 109 MG/DL (<200); CHOLESTEROL RISK RATIO 4.037 (<5); CREATININE FOR GFR 1.19 MG/DL (0.70-1.30); FREE T4 1.43 NG/DL (0.76-1.46); GLOMERULAR FILTRATION RATE > 60.0 (>49); GLUCOSE, FASTING 175 MG/DL (70-100); HDL CHOLESTEROL 27 MG/DL (>40); LDL CHOLESTEROL 47 MG/DL (<100); NON-HDL-C 82 MG/DL; POTASSIUM SERUM 3.9 MEQ/L (3.5-5.1); SODIUM LEVEL 136 MEQ/L (136-145); TOTAL PROTEIN 7.5 GM/DL (6.4-8.2); TRIGLYCERIDES LEVEL 175 MG/DL (<150)
== END ==
LOC: M PLALAB 08:43
PROVIDERS: ATTEND Family Medicine
DX: E11.40 Type 2 diabetes mellitus with diabetic neuropathy, unspecified (principal); I10 Essential (primary) hypertension; E78.00 Pure hypercholesterolemia, unspecified

== ENCOUNTER → 2022-04-29 | Outpatient (CLI) | payer MEDICARE, OTHER ==
[2022-04-29 15:10] LABS: BLOOD UREA NITROGEN 18 MG/DL (7-18); CALCIUM LEVEL 9.2 MG/DL (8.8-10.2); CARBON DIOXIDE LEVEL 23 MEQ/L (21-32); CHLORIDE LEVEL 103 MEQ/L (98-107); CREATININE FOR GFR 1.08 MG/DL (0.70-1.30); GLOMERULAR FILTRATION RATE > 60.0 (>49); GLUCOSE, FASTING 140 MG/DL (70-100); POTASSIUM SERUM 4.4 MEQ/L (3.5-5.1); SODIUM LEVEL 135 MEQ/L (136-145)
== END ==
LOC: M PLALAB 09:10
PROVIDERS: ATTEND Nurse Practitioner Adult Health
DX: I10 Essential (primary) hypertension (principal)

== ENCOUNTER → 2022-07-15 | Outpatient (CLI) | payer MEDICARE, OTHER ==
[2022-07-15 10:38] LABS: BASO % 0.3 % (0.0-1.0); EOS # 0.3 10^3/uL (0.0-0.5); EOS % 2.1 % (0.0-3.0); HEMATOCRIT 54.1 % (42.0-52.0); HEMOGLOBIN 18.1 g/dl (13.5-17.5); LYMPH # 1.4 10^3/uL (1.5-5.0); LYMPH % 11.7 % (24.0-44.0); MEAN CORPUSCULAR HEMOGLOBIN 29.7 pg (27.0-33.0); MEAN CORPUSCULAR HGB CONC 33.5 g/dl (32.0-36.5); MEAN CORPUSCULAR VOLUME 88.7 fl (80.0-96.0); MONO # 0.9 10^3/uL (0.0-0.8); MONO % 7.2 % (2.0-8.0); NEUTROPHILS # 9.5 10^3/uL (1.5-8.5); NEUTROPHILS % 78.2 % (36.0-66.0); PLATELET COUNT, AUTOMATED 210 10^3/uL (150-450); WHITE BLOOD COUNT 12.1 10^3/uL (4.0-10.0)
[2022-07-15 11:02] LABS: CREATININE, URINE 121.7 MG/DL; MALB URINE SIEMENS < 3.0 MG/DL; MAU/CREAT RATIO 2.4 MCG/MG (0.0-30.0)
[2022-07-15 11:05] LABS: ALBUMIN 3.7 G/DL (3.2-5.2); ALKALINE PHOSPHATASE 88 U/L (46-116); ALT/SGPT 18 U/L (7.0-40); AST/SGOT 15 U/L (<34); BILIRUBIN,TOTAL 1.5 MG/DL (0.3-1.2); BLOOD UREA NITROGEN 26 MG/DL (9-23); CALCIUM LEVEL 9.1 MG/DL (8.3-10.6); CARBON DIOXIDE LEVEL 26 MMOL/L (20-31); CHLORIDE LEVEL 93 MMOL/L (98-107); CREATININE FOR GFR 1.24 MG/DL (0.70-1.30); GLOMERULAR FILTRATION RATE > 60.0 (>49); GLUCOSE, FASTING 214 MG/DL (74-106); POTASSIUM SERUM 3.2 MMOL/L (3.5-5.1); SODIUM LEVEL 130 MMOL/L (136-145)
[2022-07-15 11:07] LABS: FREE T4 1.22 NG/DL (0.89-1.76); THYROID STIMULATING HORMONE 3.432 uIU/ML (0.55-4.78)
[2022-07-16 23:07] LABS: PSA TOTAL 0.1 ng/mL (0.0-4.0)
== END ==
LOC: M PLALAB 08:14
PROVIDERS: ATTEND Nurse Practitioner Adult Health
DX: E11.40 Type 2 diabetes mellitus with diabetic neuropathy, unspecified (principal); Z12.5 Encounter for screening for malignant neoplasm of prostate; E11.51 Type 2 diabetes mellitus with diabetic peripheral angiopathy without gangrene; I10 Essential (primary) hypertension

== ENCOUNTER → 2022-07-27 | Outpatient (CLI) | payer MEDICARE, OTHER ==
[2022-07-27 14:11] LABS: BLOOD UREA NITROGEN 30 MG/DL (9-23); CALCIUM LEVEL 8.8 MG/DL (8.3-10.6); CARBON DIOXIDE LEVEL 25 MMOL/L (20-31); CHLORIDE LEVEL 97 MMOL/L (98-107); GLOMERULAR FILTRATION RATE > 60.0 (>49); GLUCOSE, FASTING 213 MG/DL (74-106); POTASSIUM SERUM 3.2 MMOL/L (3.5-5.1); SODIUM LEVEL 133 MMOL/L (136-145)
== END ==
LOC: M PLALAB 11:05
PROVIDERS: ATTEND Family Medicine
DX: E87.6 Hypokalemia (principal)

== ENCOUNTER → 2022-07-27 | Outpatient (REF) | payer MEDICARE, OTHER | LOC: M SFHCDERM 13:52 | PROVIDERS: ATTEND Dermatology | DX: C44.622 Squamous cell carcinoma of skin of right upper limb, including shoulder (principal) ==

== ENCOUNTER → 2022-10-14 | Outpatient (REF) | payer MEDICARE, OTHER | LOC: M SFHCDERM 17:45 | PROVIDERS: ATTEND Dermatology | DX: L57.0 Actinic keratosis (principal); L57.8 Other skin changes due to chronic exposure to nonionizing radiation ==

== ENCOUNTER → 2022-10-17 | Outpatient (CLI) | payer MEDICARE, OTHER ==
[2022-10-17 10:46] LABS: ALBUMIN 3.7 G/DL (3.2-5.2); ALKALINE PHOSPHATASE 90 U/L (46-116); ALT/SGPT 19 U/L (7.0-40); AST/SGOT < 8 U/L (<34); BILIRUBIN,TOTAL 1.2 MG/DL (0.3-1.2); BLOOD UREA NITROGEN 25 MG/DL (9-23); CALCIUM LEVEL 8.4 MG/DL (8.3-10.6); CARBON DIOXIDE LEVEL 29 MMOL/L (20-31); CHLORIDE LEVEL 96 MMOL/L (98-107); CREATININE FOR GFR 1.07 MG/DL (0.70-1.30); GLOMERULAR FILTRATION RATE > 60.0 (>49); GLUCOSE, FASTING 194 MG/DL (74-106); POTASSIUM SERUM 3.4 MMOL/L (3.5-5.1); SODIUM LEVEL 133 MMOL/L (136-145)
[2022-10-17 10:47] LABS: BASO # 0.1 10^3/uL (0.0-0.2); BASO % 0.6 % (0.0-1.0); EOS # 0.2 10^3/uL (0.0-0.5); EOS % 1.5 % (0.0-3.0); HEMATOCRIT 50.3 % (42.0-52.0); HEMOGLOBIN 16.7 g/dl (13.5-17.5); LYMPH # 1.5 10^3/uL (1.5-5.0); LYMPH % 12.5 % (24.0-44.0); MEAN CORPUSCULAR HEMOGLOBIN 29.7 pg (27.0-33.0); MEAN CORPUSCULAR HGB CONC 33.2 g/dl (32.0-36.5); MEAN CORPUSCULAR VOLUME 89.3 fl (80.0-96.0); MONO # 0.7 10^3/uL (0.0-0.8); MONO % 5.9 % (2.0-8.0); NEUTROPHILS # 9.2 10^3/uL (1.5-8.5); NEUTROPHILS % 79.2 % (36.0-66.0); PLATELET COUNT, AUTOMATED 201 10^3/uL (150-450); RED BLOOD COUNT 5.63 10^6/uL (4.30-6.10); WHITE BLOOD COUNT 11.7 10^3/uL (4.0-10.0)
[2022-10-17 13:20] LABS: HEMOGLOBIN A1c 8.7 % (4.0-6.0)
== END ==
LOC: M PLALAB 08:25
PROVIDERS: ATTEND Family Medicine
DX: E11.40 Type 2 diabetes mellitus with diabetic neuropathy, unspecified (principal)

== ENCOUNTER → 2023-03-30 | Outpatient (REF) | payer MEDICARE, OTHER ==
[~2023-03-30] MED LIST changes: +AMOXTAB PO; +CHLO50TA PO; +ELIQ5TAB PO; +FLUO1CRE2 TOP; +FURO20TA2 PO; -LOSA100T45 PO; +LOSA100T46 PO; +POTA-136 PO; +TOUJ300I2 SQ
== END ==
LOC: M SFHCDERM 17:22
PROVIDERS: ATTEND Nurse Practitioner Family
DX: D04.62 Carcinoma in situ of skin of left upper limb, including shoulder (principal); C44.629 Squamous cell carcinoma of skin of left upper limb, including shoulder; L57.0 Actinic keratosis
CPT/HCPCS: 11102; 17000; 17003; 88305; G0463

== ENCOUNTER 2023-04-10 14:25 | Inpatient (IN) | payer MEDICARE, OTHER ==
[~2023-04-10] VITALS: Ht 182.9 cm; Wt 124.1 kg
[~2023-04-10 14:25] MED LIST changes: -AMOXTAB PO; -CHLO50TA PO; -ELIQ5TAB PO; -FLUO1CRE2 TOP; -FURO20TA2 PO; -HOME MED LIST COMPLETE! XX SCH; -MED REC IN PROGRESS XX SCH; -POTA-136 PO; -TOUJ300I2 SQ
[2023-04-10 15:40] VITALS: BP 141/84; TEMP 97.5; O2SAT 96
[2023-04-10 16:06] LABS: BASO # 0.1 10^3/uL (0.0-0.2); BASO % 0.7 % (0.0-1.0); EOS # 0.2 10^3/uL (0.0-0.5); EOS % 1.5 % (0.0-3.0); HEMATOCRIT 48.6 % (42.0-52.0); HEMOGLOBIN 16.5 g/dl (13.5-17.5); LYMPH # 1.6 10^3/uL (1.5-5.0); LYMPH % 15.6 % (24.0-44.0); MEAN CORPUSCULAR VOLUME 88.4 fl (80.0-96.0); MONO # 0.7 10^3/uL (0.0-0.8); MONO % 6.5 % (2.0-8.0); NEUTROPHILS # 7.5 10^3/uL (1.5-8.5); NEUTROPHILS % 75.3 % (36.0-66.0); PLATELET COUNT, AUTOMATED 183 10^3/uL (150-450)
[2023-04-10 16:38] LABS: ALBUMIN 3.7 G/DL (3.2-5.2); ALKALINE PHOSPHATASE 94 U/L (46-116); ALT/SGPT 18 U/L (7.0-40); AST/SGOT 12 U/L (<34); BILIRUBIN,TOTAL 0.8 MG/DL (0.3-1.2); BLOOD UREA NITROGEN 27 MG/DL (9-23); CALCIUM LEVEL 9.2 MG/DL (8.3-10.6); CARBON DIOXIDE LEVEL 24 MMOL/L (20-31); CHLORIDE LEVEL 101 MMOL/L (98-107); CREATININE FOR GFR 0.99 MG/DL (0.70-1.30); GLOMERULAR FILTRATION RATE > 60.0 (>42); GLUCOSE, FASTING 214 MG/DL (74-106); POTASSIUM SERUM 3.5 MMOL/L (3.5-5.1); SODIUM LEVEL 136 MMOL/L (136-145); TOTAL PROTEIN 7.2 G/DL (5.7-8.2)
[2023-04-10] MEDS ORDERED: GLUCOSE 4GM CHEW TABLET PO PRN (16:40)
[2023-04-10] MEDS ORDERED: DEXTROSE 50% 50ML SYRINGE IV PRN (16:40)
[2023-04-10] MEDS ORDERED: GLUCAGON INJ 1MG VIAL SC PRN (16:40)
[2023-04-10] MEDS ORDERED: PIPERACILLIN/TAZOBACTAM SOD 4.5 GM in D5W MINI-BAG PLUS 50 ML IV SCH (17:00)
[2023-04-10 17:06] LABS: INR 1.1; PROTHROMBIN TIME 13.9 SECONDS (12.5-14.5)
[2023-04-10 17:08] LABS: PARTIAL THROMBOPLASTIN TIME 31.7 SECONDS (24.8-34.2)
[2023-04-10] MEDS ORDERED: fentaNYL 100 MCG/2 ML INJECTION IV PRN (17:20)
[2023-04-10] MEDS ORDERED: ONDANSETRON 4MG 2ML VIAL IV PRN (17:20)
[2023-04-10] MEDS ORDERED: LR 1,000 ML IV SCH (17:20)
[2023-04-10] MEDS ORDERED: MORPHINE 2 MG/ML 1ML VIAL IV PRN (17:20)
[2023-04-10] MEDS ORDERED: INSULIN LISPRO (NovoLOG) PER UNIT SC PRN ×2 (17:20→19:00)
[2023-04-10] MEDS ORDERED: oxyCODONE 5MG TAB PO PRN (17:20)
[2023-04-10] MEDS ORDERED: NS 1,000 ML IV SCH (17:30)
[2023-04-10] MEDS ORDERED: GENTAMICIN SULF 80MG/2ML VIAL As Ordered ONE (17:54)
[2023-04-10] MEDS ORDERED: LIDOCAINE 2% MDV 20ML VIAL As Ordered ONE (17:54)
[2023-04-10] MEDS ORDERED: INSULIN LISPRO (NovoLOG) PER UNIT SC SCH ×2 (18:00→21:00)
[2023-04-10] MEDS ORDERED: VANCOMYCIN HCL 1,000 MG, VIAL MATE ADAPTER 1 EACH in D5W 250 ML IV ONE ×2 (18:00→19:00)
[2023-04-10] MEDS ORDERED: propofoL 200 MG/20 ML VIAL As Ordered ONE (18:19)
[2023-04-10] MEDS ORDERED: MIDAZOLAM INJ 2MG/2ML VIAL As Ordered ONE (18:19)
[2023-04-10] MEDS ORDERED: fentaNYL 100 MCG/2 ML INJECTION As Ordered ONE (18:19)
[2023-04-10 19:30] VITALS: BP 137/81; TEMP 97.7; O2SAT 94
[2023-04-10] MEDS ORDERED: TETANUS/DIPHTHERIA TOX ADSORB ADULT 0.5ML SYR/VIAL IM ONE (20:00)
[2023-04-10] MEDS ORDERED: TETANUS IMMUNE GLOBULIN (HUMAN) 250 UNITS/ML SYRINGE IM ONE (20:00)
[2023-04-10] MEDS: PIPERACILLIN/TAZOBACTAM SOD 4.5 GM in D5W MINI-BAG PLUS 50 ML IV SCH (20:07)
[2023-04-10 20:30] VITALS: BP 142/73; TEMP 97.3; O2SAT 94
[2023-04-10] MEDS ORDERED: TOUJ300I2 SQ (21:04)
[2023-04-10] MEDS ORDERED: FLUO1CRE2 TOP ×2 (21:04→23:36)
[2023-04-10] MEDS ORDERED: ELIQ5TAB PO (21:04)
[2023-04-10] MEDS ORDERED: CHLO50TA PO (21:04)
[2023-04-10] MEDS ORDERED: HYDR-3911 PO (21:07)
[2023-04-10] MEDS ORDERED: ISOS20TA4 PO (21:10)
[2023-04-10 21:30] VITALS: BP 115/68; TEMP 97.3; O2SAT 94
[2023-04-10] MEDS ORDERED: FAMOTIDINE 20 MG TAB PO PRN (22:00)
[2023-04-10 22:22] VITALS: BP 115/67; TEMP 97.5; O2SAT 93
[2023-04-10 23:30] VITALS: BP 188/104; TEMP 99.7; O2SAT 88
[2023-04-11] VITALS (47 sets, daily range): BP systolic 90–169; BP diastolic 46–95; TEMP 97–97.8; O2SAT 80–97
[2023-04-11] MEDS ORDERED: IPRATROPIUM 0.5MG/ALBUTEROL 2.5MG INH SOL UD 3ML (DUONEB) NEB ONE (00:10)
[2023-04-11 00:52] LABS: BASO % 0.4 % (0.0-1.0); EOS % 0.1 % (0.0-3.0); HEMATOCRIT 54.1 % (42.0-52.0); HEMOGLOBIN 18.4 g/dl (13.5-17.5); LYMPH # 0.9 10^3/uL (1.5-5.0); LYMPH % 9.1 % (24.0-44.0); MEAN CORPUSCULAR HEMOGLOBIN 30.3 pg (27.0-33.0); MONO % 0.3 % (2.0-8.0); NEUTROPHILS # 8.7 10^3/uL (1.5-8.5); NEUTROPHILS % 89.5 % (36.0-66.0); PLATELET COUNT, AUTOMATED 197 10^3/uL (150-450); RED BLOOD COUNT 6.08 10^6/uL (4.30-6.10); WHITE BLOOD COUNT 9.8 10^3/uL (4.0-10.0)
[2023-04-11] MEDS ORDERED: FUROSEMIDE 100MG/10ML VIAL IV ONE (00:55)
[2023-04-11] MEDS ORDERED: FUROSEMIDE 100MG/10ML VIAL As Ordered ONE (01:00)
[2023-04-11 01:17] LABS: BLOOD UREA NITROGEN 27 MG/DL (9-23); CALCIUM LEVEL 8.5 MG/DL (8.3-10.6); CARBON DIOXIDE LEVEL 23 MMOL/L (20-31); CHLORIDE LEVEL 100 MMOL/L (98-107); CK-MB VALUE MASS < 1.0 NG/ML (<3.6); CREATININE FOR GFR 1.05 MG/DL (0.70-1.30); GLOMERULAR FILTRATION RATE > 60.0 (>42); GLUCOSE, FASTING 319 MG/DL (74-106); SODIUM LEVEL 133 MMOL/L (136-145)
[2023-04-11 01:21] LABS: CPK CREATINE PHOSPHOKINASE 34 U/L (46-171); MB/CK RELATIVE INDEX 2.94 (< OR =4)
[2023-04-11] MEDS ORDERED: NITROGLYCERIN 2% OINT 1 GM *U/D* PKT TOP ONE (01:35)
[2023-04-11] MEDS: PIPERACILLIN/TAZOBACTAM SOD 4.5 GM in D5W MINI-BAG PLUS 50 ML IV SCH ×4 (01:45→19:42)
[2023-04-11] MEDS: KCL 10MEQ/100ML SWI (KRUN) 10 MEQ in IV 1 EA IV SCH ×9 (02:18→21:40)
[2023-04-11 05:55] LABS: HEMATOCRIT 56.8 % (42.0-52.0); HEMOGLOBIN 19.6 g/dl (13.5-17.5); MEAN CORPUSCULAR HEMOGLOBIN 30.5 pg (27.0-33.0); MEAN CORPUSCULAR HGB CONC 34.5 g/dl (32.0-36.5); MEAN CORPUSCULAR VOLUME 88.3 fl (80.0-96.0); PLATELET COUNT, AUTOMATED 204 10^3/uL (150-450); RED BLOOD COUNT 6.43 10^6/uL (4.30-6.10)
[2023-04-11 06:31] LABS: BILIRUBIN,TOTAL 1.1 MG/DL (0.3-1.2); CALCIUM LEVEL 8.7 MG/DL (8.3-10.6); CREATININE FOR GFR 1.27 MG/DL (0.70-1.30); GLOMERULAR FILTRATION RATE 59.7 (>42); POTASSIUM SERUM 4.1 MMOL/L (3.5-5.1); TOTAL PROTEIN 6.6 G/DL (5.7-8.2)
[2023-04-11] MEDS: INSULIN LISPRO (NovoLOG) PER UNIT SC SCH ×3 (06:46→23:17)
[2023-04-11 08:31] LABS: ACETONE/KETONE 0.38 MMOL/L (0.02-0.27)
[2023-04-11] MEDS ORDERED: LOSARTAN 50MG TABLET PO SCH (09:00)
[2023-04-11] MEDS ORDERED: ISOSORBIDE DIN. (ISORDIL) 20 MG TAB PO SCH (09:00)
[2023-04-11] MEDS ORDERED: **hydrALAZINE** 50 MG TAB PO SCH (09:00)
[2023-04-11] MEDS: VANCOMYCIN HCL 1,000 MG, VIAL MATE ADAPTER 1 EACH in NS 250 ML IV SCH ×2 (10:05→21:40)
[2023-04-11] MEDS: APIXABAN 5 MG TAB (ELIQUIS) PO SCH ×2 (10:08→20:49)
[2023-04-11] MEDS: CHLORTHALIDONE 25 MG TAB PO SCH (10:08)
[2023-04-11] MEDS: ATORVASTATIN 20 MG TAB PO SCH (10:09)
[2023-04-11] MEDS ORDERED: INSULIN REGULAR IN 0.9 % NACL 100 UNIT in IV 1 EA IV SCH ×2 (10:55)
[2023-04-11] MEDS ORDERED: FUROSEMIDE injection 250 MG in D5W 225 ML IV SCH (11:00)
[2023-04-11] MEDS: INSULIN IV RATE CHANGE DOCUMENTATION ML/HR XX SCH ×2 (14:18→16:08)
[2023-04-11 16:36] LABS: ALBUMIN 3.1 G/DL (3.2-5.2)
[2023-04-11 16:43] LABS: CALCIUM LEVEL 9.1 MG/DL (8.3-10.6); CREATININE FOR GFR 1.45 MG/DL (0.70-1.30); GLOMERULAR FILTRATION RATE 51.2 (>42); POTASSIUM SERUM 2.8 MMOL/L (3.5-5.1)
[2023-04-11] MEDS ORDERED: POTASSIUM CHLORIDE 10MEQ SR TABLET PO ONE ×2 (16:50→21:10)
[2023-04-11 20:46] LABS: CALCIUM LEVEL 8.7 MG/DL (8.3-10.6); CREATININE FOR GFR 1.44 MG/DL (0.70-1.30); GLOMERULAR FILTRATION RATE 51.6 (>42); POTASSIUM SERUM 3.3 MMOL/L (3.5-5.1)
[2023-04-11] MEDS: LEVEMIR (INSULIN DETEMIR) 1 UNITS/0.01ML SC SCH (21:41)
[2023-04-12] VITALS (18 sets, daily range): BP systolic 104–155; BP diastolic 52–86; TEMP 97.2–98.4; O2SAT 90–97
[2023-04-12] MEDS: PIPERACILLIN/TAZOBACTAM SOD 4.5 GM in D5W MINI-BAG PLUS 50 ML IV SCH ×4 (01:35→20:13)
[2023-04-12 04:41] LABS: BASO # 0.1 10^3/uL (0.0-0.2); BASO % 0.6 % (0.0-1.0); EOS # 0.1 10^3/uL (0.0-0.5); HEMATOCRIT 47.8 % (42.0-52.0); LYMPH # 1.7 10^3/uL (1.5-5.0); LYMPH % 12.4 % (24.0-44.0); MEAN CORPUSCULAR HEMOGLOBIN 30.4 pg (27.0-33.0); MEAN CORPUSCULAR HGB CONC 34.5 g/dl (32.0-36.5); MONO # 0.9 10^3/uL (0.0-0.8); MONO % 6.3 % (2.0-8.0); NEUTROPHILS % 79.3 % (36.0-66.0); PLATELET COUNT, AUTOMATED 192 10^3/uL (150-450); RED BLOOD COUNT 5.43 10^6/uL (4.30-6.10); WHITE BLOOD COUNT 13.9 10^3/uL (4.0-10.0)
[2023-04-12 04:48] LABS: HEMOGLOBIN 16.5 g/dl (13.5-17.5)
[2023-04-12 05:04] LABS: CALCIUM LEVEL 8.5 MG/DL (8.3-10.6); CREATININE FOR GFR 1.27 MG/DL (0.70-1.30); GLOMERULAR FILTRATION RATE 59.7 (>42); POTASSIUM SERUM 3.5 MMOL/L (3.5-5.1)
[2023-04-12] MEDS: INSULIN LISPRO (NovoLOG) PER UNIT SC SCH ×4 (05:59→20:14)
[2023-04-12] MEDS: LOSARTAN 50MG TABLET PO SCH (08:02)
[2023-04-12] MEDS: CHLORTHALIDONE 25 MG TAB PO SCH (08:05)
[2023-04-12] MEDS: ATORVASTATIN 20 MG TAB PO SCH (08:05)
[2023-04-12] MEDS: APIXABAN 5 MG TAB (ELIQUIS) PO SCH ×2 (08:05→20:13)
[2023-04-12] MEDS: LEVEMIR (INSULIN DETEMIR) 1 UNITS/0.01ML SC SCH ×2 (08:07→20:14)
[2023-04-12] MEDS ORDERED: GLUCOSE 4GM CHEW TABLET PO PRN (09:15)
[2023-04-12] MEDS ORDERED: GLUCAGON INJ 1MG VIAL SC PRN (09:15)
[2023-04-12] MEDS ORDERED: DEXTROSE 50% 50ML SYRINGE IV PRN (09:15)
[2023-04-12] MEDS: VANCOMYCIN HCL 1,000 MG, VIAL MATE ADAPTER 1 EACH in NS 250 ML IV SCH ×2 (10:49→21:33)
[2023-04-13] VITALS (7 sets, daily range): BP systolic 122–138; BP diastolic 70–77; TEMP 97.3–97.9; O2SAT 89–95
[2023-04-13] MEDS: PIPERACILLIN/TAZOBACTAM SOD 4.5 GM in D5W MINI-BAG PLUS 50 ML IV SCH ×4 (01:07→20:24)
[2023-04-13] MEDS: CHLORTHALIDONE 25 MG TAB PO SCH (08:31)
[2023-04-13] MEDS: APIXABAN 5 MG TAB (ELIQUIS) PO SCH ×2 (08:31→21:30)
[2023-04-13] MEDS: ATORVASTATIN 20 MG TAB PO SCH (08:34)
[2023-04-13] MEDS: LEVEMIR (INSULIN DETEMIR) 1 UNITS/0.01ML SC SCH ×2 (08:35→21:29)
[2023-04-13] MEDS: INSULIN LISPRO (NovoLOG) PER UNIT SC SCH ×4 (08:37→21:30)
[2023-04-13 09:07] LABS: BASO # 0.1 10^3/uL (0.0-0.2); BASO % 0.9 % (0.0-1.0); EOS # 0.2 10^3/uL (0.0-0.5); EOS % 2.1 % (0.0-3.0); HEMATOCRIT 45.5 % (42.0-52.0); HEMOGLOBIN 15.5 g/dl (13.5-17.5); LYMPH # 1.1 10^3/uL (1.5-5.0); LYMPH % 11.5 % (24.0-44.0); MEAN CORPUSCULAR HEMOGLOBIN 30.3 pg (27.0-33.0); MEAN CORPUSCULAR HGB CONC 34.1 g/dl (32.0-36.5); MEAN CORPUSCULAR VOLUME 88.9 fl (80.0-96.0); MONO # 0.7 10^3/uL (0.0-0.8); MONO % 7.5 % (2.0-8.0); NEUTROPHILS # 7.2 10^3/uL (1.5-8.5); NEUTROPHILS % 77.6 % (36.0-66.0); PLATELET COUNT, AUTOMATED 173 10^3/uL (150-450); RED BLOOD COUNT 5.12 10^6/uL (4.30-6.10); WHITE BLOOD COUNT 9.2 10^3/uL (4.0-10.0)
[2023-04-13 09:33] LABS: BLOOD UREA NITROGEN 35 MG/DL (9-23); CALCIUM LEVEL 8.1 MG/DL (8.3-10.6); CARBON DIOXIDE LEVEL 28 MMOL/L (20-31); CHLORIDE LEVEL 96 MMOL/L (98-107); CREATININE FOR GFR 1.08 MG/DL (0.70-1.30); GLOMERULAR FILTRATION RATE > 60.0 (>42); GLUCOSE, FASTING 349 MG/DL (74-106); POTASSIUM SERUM 3.5 MMOL/L (3.5-5.1); SODIUM LEVEL 131 MMOL/L (136-145)
[2023-04-13] MEDS: VANCOMYCIN HCL 1,000 MG, VIAL MATE ADAPTER 1 EACH in NS 250 ML IV SCH ×2 (09:59→21:30)
[2023-04-13] MEDS: LOSARTAN 50MG TABLET PO SCH (10:28)
[2023-04-14] MEDS: PIPERACILLIN/TAZOBACTAM SOD 4.5 GM in D5W MINI-BAG PLUS 50 ML IV SCH ×3 (02:02→14:27)
[2023-04-14 06:00] VITALS: BP 125/68; TEMP 97.5; O2SAT 91
[2023-04-14 06:17] LABS: BASO # 0.1 10^3/uL (0.0-0.2); BASO % 1.1 % (0.0-1.0); EOS # 0.3 10^3/uL (0.0-0.5); EOS % 4.2 % (0.0-3.0); HEMATOCRIT 44.3 % (42.0-52.0); HEMOGLOBIN 15.1 g/dl (13.5-17.5); LYMPH # 1.5 10^3/uL (1.5-5.0); LYMPH % 20.8 % (24.0-44.0); MEAN CORPUSCULAR HEMOGLOBIN 30.1 pg (27.0-33.0); MEAN CORPUSCULAR HGB CONC 34.1 g/dl (32.0-36.5); MEAN CORPUSCULAR VOLUME 88.4 fl (80.0-96.0); MONO # 0.6 10^3/uL (0.0-0.8); MONO % 8.5 % (2.0-8.0); NEUTROPHILS # 4.7 10^3/uL (1.5-8.5); NEUTROPHILS % 64.9 % (36.0-66.0); PLATELET COUNT, AUTOMATED 178 10^3/uL (150-450); RED BLOOD COUNT 5.01 10^6/uL (4.30-6.10); WHITE BLOOD COUNT 7.3 10^3/uL (4.0-10.0)
[2023-04-14 06:44] LABS: BLOOD UREA NITROGEN 31 MG/DL (9-23); CALCIUM LEVEL 8.5 MG/DL (8.3-10.6); CARBON DIOXIDE LEVEL 28 MMOL/L (20-31); CHLORIDE LEVEL 98 MMOL/L (98-107); CREATININE FOR GFR 0.96 MG/DL (0.70-1.30); GLOMERULAR FILTRATION RATE > 60.0 (>42); GLUCOSE, FASTING 189 MG/DL (74-106); POTASSIUM SERUM 3.1 MMOL/L (3.5-5.1); SODIUM LEVEL 135 MMOL/L (136-145)
[2023-04-14] MEDS ORDERED: KCL 10MEQ/100ML SWI (KRUN) 10 MEQ in IV 1 EA IV SCH (08:00)
[2023-04-14] MEDS ORDERED: POTASSIUM CHLORIDE 10MEQ SR TABLET PO ONE (08:00)
[2023-04-14] MEDS: KCL 10MEQ/100ML SWI (KRUN) 10 MEQ in IV 1 EA IV SCH ×2 (08:48→10:16)
[2023-04-14] MEDS: APIXABAN 5 MG TAB (ELIQUIS) PO SCH (08:48)
[2023-04-14 08:49] VITALS: BP 137/92
[2023-04-14] MEDS: CHLORTHALIDONE 25 MG TAB PO SCH (08:49)
[2023-04-14] MEDS: LOSARTAN 50MG TABLET PO SCH (08:49)
[2023-04-14] MEDS: LEVEMIR (INSULIN DETEMIR) 1 UNITS/0.01ML SC SCH (08:49)
[2023-04-14] MEDS: ATORVASTATIN 20 MG TAB PO SCH (08:49)
[2023-04-14] MEDS: INSULIN LISPRO (NovoLOG) PER UNIT SC SCH ×2 (08:50→12:43)
[2023-04-14] MEDS: VANCOMYCIN HCL 1,000 MG, VIAL MATE ADAPTER 1 EACH in NS 250 ML IV SCH (10:15)
[2023-04-14 11:10] LABS: BLOOD UREA NITROGEN 29 MG/DL (9-23); CALCIUM LEVEL 8.6 MG/DL (8.3-10.6); CARBON DIOXIDE LEVEL 28 MMOL/L (20-31); CHLORIDE LEVEL 98 MMOL/L (98-107); CREATININE FOR GFR 0.91 MG/DL (0.70-1.30); GLOMERULAR FILTRATION RATE > 60.0 (>42); GLUCOSE, FASTING 262 MG/DL (74-106); POTASSIUM SERUM 3.6 MMOL/L (3.5-5.1); SODIUM LEVEL 134 MMOL/L (136-145)
[2023-04-14] MEDS ORDERED: FURO20TA2 PO (13:19)
[2023-04-14] MEDS ORDERED: AMOXTAB PO (13:19)
[2023-04-14] MEDS ORDERED: POTA-136 PO (13:25)
== END 2023-04-14 15:52 | disposition home health service (06) | DRG 622 ==
LOC: M MSPAV 15:09 → M ICU 04-11 01:11 → M MSPAV 04-12 23:08
PROVIDERS: ADMIT Internal Medicine; ATTEND Student in an Organized Health Care Education/Training Program
PROC: 0JBQ0ZZ Excision of Right Foot Subcutaneous Tissue and Fascia, Open Approach (ICD-10-PCS; principal; 2023-04-10 18:00)
DX: E11.69 Type 2 diabetes mellitus with other specified complication (principal); J96.01 Acute respiratory failure with hypoxia; I50.33 Acute on chronic diastolic (congestive) heart failure; L03.115 Cellulitis of right lower limb; M86.8X7 Other osteomyelitis, ankle and foot; E11.10 Type 2 diabetes mellitus with ketoacidosis without coma; N17.9 Acute kidney failure, unspecified; E11.622 Type 2 diabetes mellitus with other skin ulcer; E11.40 Type 2 diabetes mellitus with diabetic neuropathy, unspecified; I48.91 Unspecified atrial fibrillation; E78.5 Hyperlipidemia, unspecified; K21.9 Gastro-esophageal reflux disease without esophagitis; I11.0 Hypertensive heart disease with heart failure; E88.09 Other disorders of plasma-protein metabolism, not elsewhere classified; Z79.01 Long term (current) use of anticoagulants; E87.6 Hypokalemia; L97.519 Non-pressure chronic ulcer of other part of right foot with unspecified severity; Z66 Do not resuscitate; Z79.82 Long term (current) use of aspirin; Z79.899 Other long term (current) drug therapy; Z79.4 Long term (current) use of insulin; R11.10 Vomiting, unspecified

== ENCOUNTER → 2023-04-10 | Outpatient (REF) | payer MEDICARE, OTHER ==
[~2023-04-10] MED LIST changes: +HOME MED LIST COMPLETE! XX SCH; +MED REC IN PROGRESS XX SCH
== END ==
LOC: M LAB REF 17:12
PROVIDERS: ATTEND Podiatrist
DX: L03.129 Acute lymphangitis of unspecified part of limb (principal)

== ENCOUNTER → 2023-07-04 | Outpatient (CLI) | payer MEDICARE, OTHER ==
[~2023-07-04] MED LIST changes: +AMOXTAB PO; +CHLO50TA PO; +ELIQ5TAB PO; +FLUO1CRE2 TOP; +FURO20TA2 PO; +POTA-136 PO; +TOUJ300I2 SQ
[2023-07-04 11:04] LABS: BASO # 0.1 10^3/uL (0.0-0.2); BASO % 0.7 % (0.0-1.0); EOS # 0.2 10^3/uL (0.0-0.5); EOS % 1.7 % (0.0-3.0); HEMATOCRIT 51.4 % (42.0-52.0); HEMOGLOBIN 17.3 g/dl (13.5-17.5); LYMPH # 2.1 10^3/uL (1.5-5.0); LYMPH % 21.8 % (24.0-44.0); MEAN CORPUSCULAR HEMOGLOBIN 29.9 pg (27.0-33.0); MEAN CORPUSCULAR HGB CONC 33.7 g/dl (32.0-36.5); MEAN CORPUSCULAR VOLUME 88.8 fl (80.0-96.0); MONO # 0.7 10^3/uL (0.0-0.8); MONO % 7.2 % (2.0-8.0); NEUTROPHILS # 6.4 10^3/uL (1.5-8.5); NEUTROPHILS % 68.2 % (36.0-66.0); PLATELET COUNT, AUTOMATED 203 10^3/uL (150-450); RED BLOOD COUNT 5.79 10^6/uL (4.30-6.10); WHITE BLOOD COUNT 9.4 10^3/uL (4.0-10.0)
[2023-07-04 11:29] LABS: CREATININE, URINE 75.3 MG/DL
[2023-07-04 11:30] LABS: ALBUMIN 4.1 G/DL (3.2-5.2); ALKALINE PHOSPHATASE 108 U/L (46-116); ALT/SGPT 27 U/L (7.0-40); AST/SGOT 16 U/L (<34); BILIRUBIN,TOTAL 0.9 MG/DL (0.3-1.2); BLOOD UREA NITROGEN 18 MG/DL (9-23); CALCIUM LEVEL 9.6 MG/DL (8.3-10.6); CARBON DIOXIDE LEVEL 27 MMOL/L (20-31); CHLORIDE LEVEL 96 MMOL/L (98-107); CHOLESTEROL LEVEL 111 MG/DL (<200); CREATININE FOR GFR 0.99 MG/DL (0.70-1.30); GLOMERULAR FILTRATION RATE > 60.0 (>42); GLUCOSE, FASTING 218 MG/DL (74-106); HDL CHOLESTEROL 30.8 MG/DL (>40); MALB URINE SIEMENS < 3.0 MG/L; MAU/CREAT RATIO 3.9 MCG/MG (0.0-30.0); NON-HDL-C 80.2 MG/DL; POTASSIUM SERUM 3.2 MMOL/L (3.5-5.1); SODIUM LEVEL 133 MMOL/L (136-145); TOTAL PROTEIN 7.6 G/DL (5.7-8.2); TRIGLYCERIDES LEVEL 161 MG/DL (<150)
[2023-07-04 11:31] LABS: FREE T4 1.29 NG/DL (0.89-1.76); THYROID STIMULATING HORMONE 4.247 uIU/ML (0.55-4.78)
[2023-07-04 12:04] LABS: HEMOGLOBIN A1c 10.1 % (4.0-6.0)
[2023-07-05 13:10] LABS: PSA TOTAL 0.1 ng/mL (0.0-4.0)
== END ==
LOC: M PLALAB 08:22
PROVIDERS: ATTEND Nurse Practitioner Adult Health
DX: E11.40 Type 2 diabetes mellitus with diabetic neuropathy, unspecified (principal); I48.0 Paroxysmal atrial fibrillation; Z12.5 Encounter for screening for malignant neoplasm of prostate

== ENCOUNTER → 2023-08-11 | Outpatient (CLI) | payer MEDICARE, OTHER ==
[~2023-08-11] MED LIST changes: -HYDR-3911 PO; +HYDR50TA46 PO
[2023-08-11 14:46] LABS: BLOOD UREA NITROGEN 28 MG/DL (9-23); CALCIUM LEVEL 8.7 MG/DL (8.3-10.6); CARBON DIOXIDE LEVEL 29 MMOL/L (20-31); CHLORIDE LEVEL 96 MMOL/L (98-107); CREATININE FOR GFR 1.02 MG/DL (0.70-1.30); GLOMERULAR FILTRATION RATE > 60.0 (>42); GLUCOSE, FASTING 312 MG/DL (74-106); POTASSIUM SERUM 3.5 MMOL/L (3.5-5.1); SODIUM LEVEL 132 MMOL/L (136-145)
== END ==
LOC: M PLALAB 09:49
PROVIDERS: ATTEND Physician Assistant
DX: I50.32 Chronic diastolic (congestive) heart failure (principal)

== ENCOUNTER 2023-10-23 06:53 | Emergency (ER) | payer MEDICARE, OTHER ==
[~2023-10-23] VITALS: Ht 182.9 cm; Wt 118.2 kg
[~2023-10-23 06:53] MED LIST changes: -ASPI-161 PO; +ASPI-615 PO
[2023-10-23 07:06] VITALS: TEMP 98.6
[2023-10-23 07:38] LABS: BASO # 0.1 10^3/uL (0.0-0.2); BASO % 0.6 % (0.0-1.0); EOS # 0.1 10^3/uL (0.0-0.5); EOS % 1.1 % (0.0-3.0); HEMATOCRIT 46.6 % (42.0-52.0); LYMPH # 1.4 10^3/uL (1.5-5.0); LYMPH % 18.1 % (24.0-44.0); MEAN CORPUSCULAR HEMOGLOBIN 30.4 pg (27.0-33.0); MEAN CORPUSCULAR HGB CONC 34.3 g/dl (32.0-36.5); MEAN CORPUSCULAR VOLUME 88.4 fl (80.0-96.0); MONO # 0.5 10^3/uL (0.0-0.8); MONO % 6.4 % (2.0-8.0); NEUTROPHILS # 5.8 10^3/uL (1.5-8.5); NEUTROPHILS % 72.9 % (36.0-66.0); PLATELET COUNT, AUTOMATED 157 10^3/uL (150-450); RED BLOOD COUNT 5.27 10^6/uL (4.30-6.10); WHITE BLOOD COUNT 7.9 10^3/uL (4.0-10.0)
[2023-10-23] MEDS ORDERED: ISOVUE-370 76% 100ML VIAL As Ordered ONE (08:12)
[2023-10-23] MEDS ORDERED: FURO20TA2 PO (08:16)
[2023-10-23] MEDS ORDERED: METO1TAB33 PO (08:17)
[2023-10-23] MEDS ORDERED: NAPR220C23 PO (08:18)
[2023-10-23] MEDS ORDERED: CLOB0.0526 TOP (08:19)
[2023-10-23] MEDS ORDERED: TOUJ300I2 SC (08:20)
[2023-10-23] MEDS ORDERED: DULA3PEN (08:22)
[2023-10-23] MEDS: ASPIRIN 81MG CHEW TABLET PO ONE (09:30)
[2023-10-23] MEDS: ATORVASTATIN 20 MG TAB PO ONE (09:43)
[2023-10-23] MEDS: CHLORTHALIDONE 25 MG TAB PO ONE (09:43)
[2023-10-23 09:44] VITALS: BP 137/63
[2023-10-23] MEDS: METOPROLOL SUCC (TopROL XL) 100MG *XL* TAB PO ONE (09:44)
[2023-10-23] MEDS: APIXABAN 5 MG TAB (ELIQUIS) PO ONE (09:44)
[2023-10-23] MEDS: FUROSEMIDE 20 MG TAB PO ONE (09:44)
[2023-10-23] MEDS: LOSARTAN 50MG TABLET PO ONE (09:45)
[2023-10-23 13:45] VITALS: BP 124/68; O2SAT 94
[2023-10-24] MEDS ORDERED: DAPAGLIFLOZIN PROPANEDIOL 10MG TABLET (FARXIGA) PO SCH (09:00)
== END 2023-10-23 14:06 | disposition home or self-care (01) ==
LOC: M ED 06:53
DX: R42 Dizziness and giddiness (principal); I44.0 Atrioventricular block, first degree; E11.9 Type 2 diabetes mellitus without complications; I48.91 Unspecified atrial fibrillation; I10 Essential (primary) hypertension; E78.5 Hyperlipidemia, unspecified; Z79.899 Other long term (current) drug therapy; Z79.4 Long term (current) use of insulin
CPT/HCPCS: 36415; 70450; 70496; 70498; 70551; 80047; 84484; 85025; 93005; 99285; Q9967

== ENCOUNTER → 2023-10-25 | Outpatient (CLI) | payer MEDICARE, OTHER ==
[~2023-10-25] MED LIST changes: +CLOB0.0526 TOP; +DULA3PEN; +METO1TAB33 PO; +NAPR220C23 PO; +TOUJ300I2 SC
[2023-10-25 10:18] LABS: BASO # 0.1 10^3/uL (0.0-0.2); BASO % 0.9 % (0.0-1.0); EOS # 0.2 10^3/uL (0.0-0.5); EOS % 1.6 % (0.0-3.0); HEMATOCRIT 48.7 % (42.0-52.0); HEMOGLOBIN 16.5 g/dl (13.5-17.5); LYMPH # 2.1 10^3/uL (1.5-5.0); LYMPH % 21.5 % (24.0-44.0); MEAN CORPUSCULAR HEMOGLOBIN 30.6 pg (27.0-33.0); MEAN CORPUSCULAR HGB CONC 33.9 g/dl (32.0-36.5); MEAN CORPUSCULAR VOLUME 90.2 fl (80.0-96.0); MONO # 0.7 10^3/uL (0.0-0.8); MONO % 6.6 % (2.0-8.0); NEUTROPHILS # 6.8 10^3/uL (1.5-8.5); NEUTROPHILS % 68.9 % (36.0-66.0); PLATELET COUNT, AUTOMATED 218 10^3/uL (150-450); WHITE BLOOD COUNT 9.9 10^3/uL (4.0-10.0)
[2023-10-25 10:37] LABS: HEMOGLOBIN A1c 10.6 % (4.0-6.0)
[2023-10-25 10:53] LABS: ALBUMIN 3.9 G/DL (3.2-5.2); ALKALINE PHOSPHATASE 108 U/L (46-116); ALT/SGPT 22 U/L (7.0-40); AST/SGOT 16 U/L (<34); BILIRUBIN,TOTAL 0.8 MG/DL (0.3-1.2); BLOOD UREA NITROGEN 28 MG/DL (9-23); CALCIUM LEVEL 9.4 MG/DL (8.3-10.6); CARBON DIOXIDE LEVEL 27 MMOL/L (20-31); CHLORIDE LEVEL 94 MMOL/L (98-107); CREATININE FOR GFR 0.99 MG/DL (0.70-1.30); GLOMERULAR FILTRATION RATE > 60.0 (>42); GLUCOSE, FASTING 256 MG/DL (74-106); POTASSIUM SERUM 3.2 MMOL/L (3.5-5.1); SODIUM LEVEL 132 MMOL/L (136-145); TOTAL PROTEIN 7.2 G/DL (5.7-8.2)
== END ==
LOC: M PLALAB 07:11
PROVIDERS: ATTEND Nurse Practitioner Adult Health
DX: E11.40 Type 2 diabetes mellitus with diabetic neuropathy, unspecified (principal)

== ENCOUNTER → 2023-10-26 | Outpatient (CLI) | payer MEDICARE, OTHER | LOC: M PLAIMG 10:16 | PROVIDERS: ATTEND Family Medicine | DX: M54.50 Low back pain, unspecified (principal) ==

== ENCOUNTER → 2023-11-07 | Outpatient (CLI) | payer MEDICARE, OTHER ==
[~2023-11-07] MED LIST changes: -DULA3PEN; +DULA3PEN SC; +ISOVUE-370 76% 100ML VIAL ONE
== END ==
LOC: M PLAIMG 13:34
PROVIDERS: ATTEND Nurse Practitioner Adult Health
DX: R91.8 Other nonspecific abnormal finding of lung field (principal); J98.11 Atelectasis
CPT/HCPCS: 71260; Q9967

== ENCOUNTER 2023-11-16 08:42 | Day surgery (SDC) | payer MEDICARE, OTHER ==
[~2023-11-16] VITALS: Ht 182.9 cm; Wt 120.7 kg
[~2023-11-16 08:42] MED LIST changes: -ISOVUE-370 76% 100ML VIAL ONE; +MIDAZOLAM INJ 2MG/2ML VIAL As Ordered ONE; +PHENYLEPHRINE 10% OPHTH SOL 5ML OD PRN; +fentaNYL 100 MCG/2 ML INJECTION As Ordered ONE
[2023-11-16] MEDS: PHENYLEPHRINE 2.5% OPHTH SOL 2ML OD SCH (09:34)
[2023-11-16] MEDS: TROPICAMIDE 1% OPHTH SOLN 15ML OD SCH (09:34)
[2023-11-16] MEDS: OFLOXACIN 0.3 % (OCUFLOX) OPTH SOL 5ML OD ONE (09:35)
[2023-11-16] MEDS: LIDOCAINE 3.5 % 1ML OPHTH TOPICAL GEL OU ONE (09:35)
[2023-11-16] MEDS: ATROPINE SULFATE 1% OPHTH SOLN 2ML BTL OD SCH (09:35)
[2023-11-16] MEDS ORDERED: ONDANSETRON 4MG 2ML VIAL As Ordered ONE (10:15)
[2023-11-16] MEDS: BSS IRRIG/VANCO(10MG)/TOBRA(5MG)/EPINEPH(1:1000-0.5CC)500ML BAG-ORONLY As Ordered ONE (10:23)
[2023-11-16] MEDS: LIDOCAINE 1% SDV 5ML VIAL As Ordered ONE (10:23)
[2023-11-16] MEDS: CEFUROXIME 1MG/0.1ML INTRACAMERAL INJ As Ordered ONE (10:23)
[2023-11-16 10:30] VITALS: BP 112/67; TEMP 97.2; O2SAT 97
== END 2023-11-16 10:50 | disposition home or self-care (01) ==
LOC: M SDC 08:42
PROVIDERS: ATTEND Ophthalmology
DX: H25.11 Age-related nuclear cataract, right eye (principal); I10 Essential (primary) hypertension; I48.91 Unspecified atrial fibrillation; E78.5 Hyperlipidemia, unspecified; E11.9 Type 2 diabetes mellitus without complications; Z79.01 Long term (current) use of anticoagulants; Z79.4 Long term (current) use of insulin; Z79.899 Other long term (current) drug therapy; Z79.82 Long term (current) use of aspirin
CPT/HCPCS: 66984; J0697; J2250; J2405; J3010; V2632

== ENCOUNTER 2023-11-23 08:51 | Day surgery (SDC) | payer MEDICARE, OTHER ==
[~2023-11-23] VITALS: Ht 182.9 cm; Wt 121.0 kg
[~2023-11-23 08:51] MED LIST changes: -PHENYLEPHRINE 10% OPHTH SOL 5ML OD PRN; +PHENYLEPHRINE 10% OPHTH SOL 5ML OS PRN
[2023-11-23] MEDS: LIDOCAINE 3.5 % 1ML OPHTH TOPICAL GEL OU ONE (09:57)
[2023-11-23] MEDS: OFLOXACIN 0.3 % (OCUFLOX) OPTH SOL 5ML OS ONE (09:57)
[2023-11-23] MEDS: ATROPINE SULFATE 1% OPHTH SOLN 2ML BTL OS SCH (09:58)
[2023-11-23] MEDS: TROPICAMIDE 1% OPHTH SOLN 15ML OS SCH (09:58)
[2023-11-23] MEDS: PHENYLEPHRINE 2.5% OPHTH SOL 2ML OS SCH (09:58)
[2023-11-23] MEDS: LIDOCAINE 1% SDV 5ML VIAL As Ordered ONE (10:10)
[2023-11-23] MEDS: BSS IRRIG/VANCO(10MG)/TOBRA(5MG)/EPINEPH(1:1000-0.5CC)500ML BAG-ORONLY As Ordered ONE (10:10)
[2023-11-23] MEDS: CEFUROXIME 1MG/0.1ML INTRACAMERAL INJ As Ordered ONE (10:10)
[2023-11-23 10:30] VITALS: BP 106/61; TEMP 96.6; O2SAT 93
== END 2023-11-23 10:50 | disposition home or self-care (01) ==
LOC: M SDC 08:51
PROVIDERS: ATTEND Ophthalmology
DX: H25.12 Age-related nuclear cataract, left eye (principal); I48.91 Unspecified atrial fibrillation; I10 Essential (primary) hypertension; E78.5 Hyperlipidemia, unspecified; E11.9 Type 2 diabetes mellitus without complications; K21.9 Gastro-esophageal reflux disease without esophagitis; Z92.21 Personal history of antineoplastic chemotherapy; Z79.01 Long term (current) use of anticoagulants; Z79.82 Long term (current) use of aspirin; Z79.4 Long term (current) use of insulin
CPT/HCPCS: 66984; J0697; J2250; J3010; V2632

== ENCOUNTER → 2024-01-10 | Outpatient (REF) | payer MEDICARE, OTHER ==
[~2024-01-10] MED LIST changes: -MIDAZOLAM INJ 2MG/2ML VIAL As Ordered ONE; -PHENYLEPHRINE 10% OPHTH SOL 5ML OS PRN; -fentaNYL 100 MCG/2 ML INJECTION As Ordered ONE
== END ==
LOC: M SFHCDERM 13:19
PROVIDERS: ATTEND Physician Assistant
DX: D04.61 Carcinoma in situ of skin of right upper limb, including shoulder (principal); L85.9 Epidermal thickening, unspecified

== ENCOUNTER → 2024-02-07 | Outpatient (CLI) | payer MEDICARE, OTHER ==
[2024-02-07 11:43] LABS: BASO # 0.1 10^3/uL (0.0-0.2); BASO % 0.8 % (0.0-1.0); EOS # 0.2 10^3/uL (0.0-0.5); EOS % 1.8 % (0.0-3.0); HEMATOCRIT 51.9 % (42.0-52.0); HEMOGLOBIN 17.1 g/dl (13.5-17.5); LYMPH # 1.8 10^3/uL (1.5-5.0); LYMPH % 17.4 % (24.0-44.0); MEAN CORPUSCULAR HEMOGLOBIN 29.6 pg (27.0-33.0); MEAN CORPUSCULAR HGB CONC 32.9 g/dl (32.0-36.5); MEAN CORPUSCULAR VOLUME 89.9 fl (80.0-96.0); MONO # 0.8 10^3/uL (0.0-0.8); MONO % 8.1 % (2.0-8.0); NEUTROPHILS # 7.4 10^3/uL (1.5-8.5); NEUTROPHILS % 71.4 % (36.0-66.0); PLATELET COUNT, AUTOMATED 221 10^3/uL (150-450); RED BLOOD COUNT 5.77 10^6/uL (4.30-6.10); WHITE BLOOD COUNT 10.3 10^3/uL (4.0-10.0)
[2024-02-07 12:01] LABS: HEMOGLOBIN A1c 8.7 % (4.0-6.0)
[2024-02-07 12:16] LABS: ALBUMIN 3.9 G/DL (3.2-5.2); ALKALINE PHOSPHATASE 114 U/L (46-116); ALT/SGPT 17 U/L (7.0-40); AST/SGOT 10 U/L (<34); BILIRUBIN,TOTAL 0.8 MG/DL (0.3-1.2); BLOOD UREA NITROGEN 25 MG/DL (9-23); CALCIUM LEVEL 9.2 MG/DL (8.3-10.6); CARBON DIOXIDE LEVEL 27 MMOL/L (20-31); CHLORIDE LEVEL 99 MMOL/L (98-107); CHOLESTEROL LEVEL 111 MG/DL (<200); CHOLESTEROL RISK RATIO 4.45 (<5); CREATININE FOR GFR 1.05 MG/DL (0.70-1.30); GLOMERULAR FILTRATION RATE > 60.0 (>42); GLUCOSE, FASTING 169 MG/DL (74-106); HDL CHOLESTEROL 24.9 MG/DL (>40); LDL CHOLESTEROL 57.7 MG/DL (<100); NON-HDL-C 86.1 MG/DL; POTASSIUM SERUM 3.6 MMOL/L (3.5-5.1); SODIUM LEVEL 135 MMOL/L (136-145); TOTAL PROTEIN 7.5 G/DL (5.7-8.2); TRIGLYCERIDES LEVEL 142 MG/DL (<150)
== END ==
LOC: M PLALAB 07:21
PROVIDERS: ATTEND Nurse Practitioner Adult Health
DX: E11.40 Type 2 diabetes mellitus with diabetic neuropathy, unspecified (principal)

== ENCOUNTER → 2024-04-10 | Outpatient (REF) | payer MEDICARE, OTHER | LOC: M LAB REF 16:20 | PROVIDERS: ATTEND Podiatrist | DX: L03.129 Acute lymphangitis of unspecified part of limb (principal) ==

== ENCOUNTER → 2024-05-07 | Outpatient (CLI) | payer MEDICARE, OTHER ==
[2024-05-07 10:53] LABS: BASO # 0.1 10^3/uL (0.0-0.2); BASO % 0.7 % (0.0-1.0); EOS # 0.2 10^3/uL (0.0-0.5); EOS % 2.1 % (0.0-3.0); HEMOGLOBIN 17.1 g/dl (13.5-17.5); MEAN CORPUSCULAR HEMOGLOBIN 28.7 pg (27.0-33.0); MEAN CORPUSCULAR HGB CONC 33.5 g/dl (32.0-36.5); MEAN CORPUSCULAR VOLUME 85.6 fl (80.0-96.0); MONO # 0.8 10^3/uL (0.0-0.8); MONO % 6.5 % (2.0-8.0); NEUTROPHILS # 8.4 10^3/uL (1.5-8.5); NEUTROPHILS % 73.1 % (36.0-66.0); PLATELET COUNT, AUTOMATED 239 10^3/uL (150-450); RED BLOOD COUNT 5.96 10^6/uL (4.30-6.10); WHITE BLOOD COUNT 11.5 10^3/uL (4.0-10.0)
[2024-05-07 11:15] LABS: HEMOGLOBIN A1c 8.9 % (4.0-6.0)
[2024-05-07 11:25] LABS: ALBUMIN 3.7 G/DL (3.2-5.2); ALKALINE PHOSPHATASE 109 U/L (40-129); ALT/SGPT 17 U/L (7.0-40); AST/SGOT 9 U/L (<34); BILIRUBIN,TOTAL 1.3 MG/DL (0.3-1.2); BLOOD UREA NITROGEN 21 MG/DL (9-23); CALCIUM LEVEL 9.4 MG/DL (8.3-10.6); CARBON DIOXIDE LEVEL 25 MMOL/L (20-31); CHLORIDE LEVEL 97 MMOL/L (98-107); CREATININE FOR GFR 1.07 MG/DL (0.70-1.30); GLOMERULAR FILTRATION RATE > 60.0 (>42); GLUCOSE, FASTING 221 MG/DL (74-106); POTASSIUM SERUM 3.4 MMOL/L (3.5-5.1); SODIUM LEVEL 133 MMOL/L (136-145); TOTAL PROTEIN 7.4 G/DL (5.7-8.2)
== END ==
LOC: M PLALAB 07:35
PROVIDERS: ATTEND Nurse Practitioner Adult Health
DX: E11.40 Type 2 diabetes mellitus with diabetic neuropathy, unspecified (principal)

== ENCOUNTER → 2024-07-24 | Outpatient (REF) | payer MEDICARE, OTHER | LOC: M SFHCDERM 17:45 | PROVIDERS: ATTEND Physician Assistant | DX: C44.329 Squamous cell carcinoma of skin of other parts of face (principal); L72.0 Epidermal cyst ==

== ENCOUNTER → 2024-08-06 | Outpatient (CLI) | payer MEDICARE, OTHER ==
[2024-08-06 10:49] LABS: BASO # 0.1 10^3/uL (0.0-0.2); BASO % 0.8 % (0.0-1.0); EOS # 0.2 10^3/uL (0.0-0.5); EOS % 2.1 % (0.0-3.0); HEMATOCRIT 51.3 % (42.0-52.0); HEMOGLOBIN 17.1 g/dl (13.5-17.5); LYMPH # 2.1 10^3/uL (1.5-5.0); LYMPH % 19.9 % (24.0-44.0); MEAN CORPUSCULAR HEMOGLOBIN 29.3 pg (27.0-33.0); MEAN CORPUSCULAR HGB CONC 33.3 g/dl (32.0-36.5); MONO # 0.6 10^3/uL (0.0-0.8); MONO % 5.6 % (2.0-8.0); NEUTROPHILS # 7.6 10^3/uL (1.5-8.5); NEUTROPHILS % 71.2 % (36.0-66.0); PLATELET COUNT, AUTOMATED 208 10^3/uL (150-450); RED BLOOD COUNT 5.83 10^6/uL (4.30-6.10); WHITE BLOOD COUNT 10.7 10^3/uL (4.0-10.0)
[2024-08-06 11:05] LABS: HEMOGLOBIN A1c 9.8 % (4.0-6.0)
[2024-08-06 11:18] LABS: PSA SCREENING 0.08 NG/ML (< 4.00)
[2024-08-06 11:22] LABS: ALBUMIN 3.9 G/DL (3.2-5.2); ALKALINE PHOSPHATASE 119 U/L (40-129); ALT/SGPT 19 U/L (7.0-40); AST/SGOT 13 U/L (<34); BILIRUBIN,TOTAL 1.1 MG/DL (0.3-1.2); BLOOD UREA NITROGEN 20 MG/DL (9-23); CALCIUM LEVEL 9.8 MG/DL (8.3-10.6); CARBON DIOXIDE LEVEL 26 MMOL/L (20-31); CHLORIDE LEVEL 99 MMOL/L (98-107); CHOLESTEROL LEVEL 135 MG/DL (<200); CHOLESTEROL RISK RATIO 4.96 (<5); CREATININE FOR GFR 0.95 MG/DL (0.70-1.30); GLOMERULAR FILTRATION RATE > 60.0 (>42); GLUCOSE, FASTING 208 MG/DL (74-106); HDL CHOLESTEROL 27.2 MG/DL (>40); LDL CHOLESTEROL 66.2 MG/DL (<100); NON-HDL-C 107.8 MG/DL; POTASSIUM SERUM 3.6 MMOL/L (3.5-5.1); SODIUM LEVEL 138 MMOL/L (136-145); TOTAL PROTEIN 7.6 G/DL (5.7-8.2); TRIGLYCERIDES LEVEL 208 MG/DL (<150)
== END ==
LOC: M PLALAB 07:58
PROVIDERS: ATTEND Nurse Practitioner Adult Health
DX: E11.40 Type 2 diabetes mellitus with diabetic neuropathy, unspecified (principal); Z12.5 Encounter for screening for malignant neoplasm of prostate; E78.00 Pure hypercholesterolemia, unspecified
CPT/HCPCS: 36415; 80053; 80061; 83036; 85025; G0103

== ENCOUNTER → 2024-11-11 | Outpatient (CLI) | payer MEDICARE, OTHER ==
[2024-11-11 11:16] LABS: BASO # 0.1 10^3/uL (0.0-0.2); BASO % 0.7 % (0.0-1.0); EOS # 0.2 10^3/uL (0.0-0.5); EOS % 1.7 % (0.0-3.0); HEMOGLOBIN 16.4 g/dl (13.5-17.5); LYMPH # 1.7 10^3/uL (1.5-5.0); LYMPH % 14.6 % (24.0-44.0); MEAN CORPUSCULAR HEMOGLOBIN 30.1 pg (27.0-33.0); MEAN CORPUSCULAR HGB CONC 34.2 g/dl (32.0-36.5); MEAN CORPUSCULAR VOLUME 88.2 fl (80.0-96.0); MONO # 0.7 10^3/uL (0.0-0.8); MONO % 5.9 % (2.0-8.0); NEUTROPHILS # 8.8 10^3/uL (1.5-8.5); NEUTROPHILS % 76.5 % (36.0-66.0); PLATELET COUNT, AUTOMATED 237 10^3/uL (150-450); RED BLOOD COUNT 5.44 10^6/uL (4.30-6.10); WHITE BLOOD COUNT 11.5 10^3/uL (4.0-10.0)
[2024-11-11 11:40] LABS: CREATININE, URINE 60.6 MG/DL; MALB URINE SIEMENS < 3.0 MG/L
[2024-11-11 11:43] LABS: HEMOGLOBIN A1c 9.4 % (4.0-6.0)
[2024-11-11 12:45] LABS: BILIRUBIN,TOTAL 0.7 MG/DL (0.3-1.2); CALCIUM LEVEL 9.6 MG/DL (8.3-10.6); CREATININE FOR GFR 1.07 MG/DL (0.70-1.30); GLOMERULAR FILTRATION RATE 74.2 (>42); POTASSIUM SERUM 3.2 MMOL/L (3.5-5.1); TOTAL PROTEIN 7.7 G/DL (5.7-8.2)
[2024-11-11 12:55] LABS: THYROID STIMULATING HORMONE 3.104 uIU/ML (0.55-4.78)
[2024-11-11 13:06] LABS: FREE T4 1.21 NG/DL (0.89-1.76)
== END ==
LOC: M PLALAB 08:48
PROVIDERS: ATTEND Nurse Practitioner Adult Health
DX: E11.40 Type 2 diabetes mellitus with diabetic neuropathy, unspecified (principal)

== ENCOUNTER → 2024-11-15 | Outpatient (CLI) | payer MEDICARE, OTHER ==
[~2024-11-15] MED LIST changes: +ISOVUE-370 76% 100ML VIAL As Ordered ONE
== END ==
LOC: M RAD 12:40
PROVIDERS: ATTEND Nurse Practitioner Adult Health
DX: R91.8 Other nonspecific abnormal finding of lung field (principal)
CPT/HCPCS: 71260; Q9967

== ENCOUNTER → 2025-01-22 | Outpatient (REF) | payer MEDICARE, OTHER ==
[~2025-01-22] MED LIST changes: +FLEC50HA PO; -ISOVUE-370 76% 100ML VIAL As Ordered ONE; +LOSA50TA28 PO; +POTA-298 PO; +TIRZ10PE SQ
== END ==
LOC: M SFHCDERM 13:49
PROVIDERS: ATTEND Physician Assistant
DX: L85.1 Acquired keratosis [keratoderma] palmaris et plantaris (principal)

== ENCOUNTER → 2025-01-22 | Outpatient (CLI) | payer MEDICARE, OTHER ==
[~2025-01-22] MED LIST changes: -FLEC50HA PO; -LOSA50TA28 PO; -POTA-298 PO; -TIRZ10PE SQ
[2025-01-22 10:26] LABS: BASO # 0.1 10^3/uL (0.0-0.2); BASO % 0.9 % (0.0-1.0); EOS # 0.3 10^3/uL (0.0-0.5); EOS % 2.7 % (0.0-3.0); LYMPH # 1.8 10^3/uL (1.5-5.0); LYMPH % 14.5 % (24.0-44.0); MONO # 0.8 10^3/uL (0.0-0.8); MONO % 6.5 % (2.0-8.0); NEUTROPHILS # 9.3 10^3/uL (1.5-8.5); NEUTROPHILS % 74.9 % (36.0-66.0); PLATELET COUNT, AUTOMATED 215 10^3/uL (150-450)
[2025-01-22 10:56] LABS: ALT/SGPT 17.0 U/L (7.0-40); AST/SGOT 13.0 U/L (<34); CALCIUM LEVEL 9.2 MG/DL (8.3-10.6); CARBON DIOXIDE LEVEL 24.0 MMOL/L (20-31); CHLORIDE LEVEL 96.0 MMOL/L (98-107); CREATININE FOR GFR 1.06 MG/DL (0.70-1.30); GLOMERULAR FILTRATION RATE 74.6 (>42); POTASSIUM SERUM 3.3 MMOL/L (3.5-5.1); SODIUM LEVEL 136.0 MMOL/L (136-145)
[2025-01-22 11:33] LABS: ESTIMATED AVERAGE GLUCOSE 214.0 MG/DL (60-110)
== END ==
LOC: M PLALAB 07:07
PROVIDERS: ATTEND Family Medicine
DX: E11.40 Type 2 diabetes mellitus with diabetic neuropathy, unspecified (principal)

== ENCOUNTER 2025-03-08 06:34 | Inpatient (IN) | payer MEDICARE, OTHER ==
[~2025-03-08] VITALS: Ht 182.9 cm; Wt 117.4 kg
[2025-03-08] MEDS: LIDOCAINE 2% 5 ML JELLY UROJET TOP ONE (06:50)
[2025-03-08 07:08] LABS: BASO # 0.1 10^3/uL (0.0-0.2); BASO % 0.4 % (0.0-1.0); EOS # 0.1 10^3/uL (0.0-0.5); EOS % 0.5 % (0.0-3.0); LYMPH # 0.9 10^3/uL (1.5-5.0); LYMPH % 6.1 % (24.0-44.0); MONO # 1.1 10^3/uL (0.0-0.8); MONO % 8.1 % (2.0-8.0); NEUTROPHILS # 11.9 10^3/uL (1.5-8.5); NEUTROPHILS % 84.0 % (36.0-66.0); PLATELET COUNT, AUTOMATED 191 10^3/uL (150-450)
[2025-03-08 07:17] LABS: VENOUS BASE EXCESS -0.3 (-2.0-2.0); VENOUS HCO3 25.8 MMOL/L (23.0-27.0); VENOUS O2 SATURATION 62.5 % (60.0-80.0); VENOUS PARTIAL PRESSURE CO2 47.2 mmHg (38.0-50.0); VENOUS PARTIAL PRESSURE O2 34.4 mmHg (30.0-50.0); VENOUS PH 7.356 UNITS (7.330-7.430); VENOUS STANDARD HCO3 23.3 MMOL/L; VENOUS TOTAL CO2 27.3 MMOL/L (24.0-28.0)
[2025-03-08 07:33] LABS: INR 1.17
[2025-03-08 07:40] LABS: ALT/SGPT 23 U/L (7.0-40); AST/SGOT 43 U/L (<34); CK-MB VALUE MASS < 1.0 NG/ML (<3.6); CPK CREATINE PHOSPHOKINASE 71 U/L (46-171)
[2025-03-08 07:55] LABS: CALCIUM LEVEL 8.9 MG/DL (8.3-10.6); CARBON DIOXIDE LEVEL 27 MMOL/L (20-31); CHLORIDE LEVEL 96 MMOL/L (98-107); CREATININE FOR GFR 1.14 MG/DL (0.70-1.30); GLOMERULAR FILTRATION RATE 68.3 (>42); POTASSIUM SERUM 3.7 MMOL/L (3.5-5.1); SODIUM LEVEL 136 MMOL/L (136-145)
[2025-03-08 07:56] LABS: SALICYLATE LEVEL < 3.0 MG/DL (<30)
[2025-03-08 07:58] LABS: ETHYL ALCOHOL (ETHANOL) < 0.003 % (0.000-0.010)
[2025-03-08 08:07] LABS: KETONE, URINE AUTO RFX NEGATIVE (NEGATIVE); LEUKOCYTE ESTERASE UR AUTO RFX NEGATIVE (NEGATIVE); NITRITE, URINE AUTO RFX NEGATIVE (NEGATIVE); RBC, URINE AUTO RFX 0 /HPF (0-3); SQUAM EPITHELIAL CELL UR AURFX 0 /HPF (0-6); WBC, URINE AUTO RFX 1 /HPF (0-3)
[2025-03-08] MEDS: NS 500 ML IV ONE (08:30)
[2025-03-08] MEDS ORDERED: ISOVUE-370 76% 100 ML VIAL As Ordered ONE (08:45)
[2025-03-08] MEDS ORDERED: FUROSEMIDE 20 MG TAB PO SCH (09:00)
[2025-03-08] MEDS ORDERED: ALBUTEROL 90 MCG/ACT 8 GM HFA INHALER INH PRN (09:20)
[2025-03-08] MEDS ORDERED: GLUCOSE 4 GM CHEW PO PRN (09:20)
[2025-03-08] MEDS ORDERED: GLUCAGON INJ 1 MG VIAL SC PRN (09:20)
[2025-03-08] MEDS ORDERED: DEXTROSE 50% 50 ML SYRINGE IV PRN (09:20)
[2025-03-08] MEDS ORDERED: ACETAMINOPHEN 325 MG TAB PO PRN (09:20)
[2025-03-08 09:44] LABS: D-DIMER QUANT 0.49 ug/mL (<0.5)
[2025-03-08 10:10] LABS: MAGNESIUM LEVEL 1.9 MG/DL (1.8-2.4)
[2025-03-08 10:11] LABS: LDH LACTATE DEHYDROGENASE 332 U/L (120-246)
[2025-03-08 10:12] LABS: C REACTIVE PROTEIN QUANTITATIV 2.90 MG/DL (<1.0)
[2025-03-08] MEDS ORDERED: TIRZ10PE SQ (10:12)
[2025-03-08] MEDS ORDERED: LOSA50TA28 PO (10:12)
[2025-03-08] MEDS ORDERED: FLEC50HA PO (10:12)
[2025-03-08] MEDS ORDERED: POTA-298 PO (10:12)
[2025-03-08 10:14] VITALS: BP 117/72; TEMP 99; O2SAT 98
[2025-03-08] MEDS ORDERED: HOME MED LIST COMPLETE! XX SCH (10:15)
[2025-03-08] MEDS: APIXABAN 5 MG TAB PO SCH (11:13)
[2025-03-08] MEDS: NS (Normal Saline) 0.9% 1,000 ML IV SCH (11:14)
[2025-03-08 11:42] VITALS: BP 114/66; TEMP 98.6; O2SAT 100
[2025-03-08] MEDS ORDERED: REMDESIVIR 200 MG in NS 250 ML IV ONE (12:00)
[2025-03-08] MEDS: INSULIN LISPRO (NovoLOG) PER UNIT SC SCH ×2 (14:54→21:06)
[2025-03-08] MEDS: ASPIRIN 81 MG ENTERIC TABLET PO SCH (14:54)
[2025-03-08] MEDS: DAPAGLIFLOZIN PROPANEDIOL 10 MG TABLET PO SCH (14:54)
[2025-03-08] MEDS: METOPROLOL SUCC. 50 MG *XL* TAB PO SCH (15:04)
[2025-03-08] MEDS: METOPROLOL SUCC. 100 MG *XL* TAB PO SCH (15:15)
[2025-03-08] MEDS: POTASSIUM CHLORIDE 10MEQ SR TABLET PO SCH (18:07)
[2025-03-08 20:24] VITALS: BP 126/71; TEMP 98.4; O2SAT 95
[2025-03-08] MEDS: LanTUS (INSULIN GLARGINE INJ) 1 UNITS/0.01 ML SC SCH (21:07)
[2025-03-08] MEDS: FLECAINIDE 50 MG TABLET PO SCH (21:07)
[2025-03-08] MEDS: guaiFENesin ER TABLET 600 MG TAB PO SCH (21:07)
[2025-03-08] MEDS: FAMOTIDINE 20 MG TAB PO SCH (21:07)
[2025-03-08] MEDS: ATORVASTATIN 20 MG TAB PO SCH (21:09)
[2025-03-08] MEDS: REMDESIVIR 200 MG in NS 250 ML IV ONE (22:34)
[2025-03-09 04:01] VITALS: BP 115/67; TEMP 98.2; O2SAT 92
[2025-03-09 06:22] LABS: PLATELET COUNT, AUTOMATED 167 10^3/uL (150-450)
[2025-03-09 06:54] LABS: ALT/SGPT 19.0 U/L (7.0-40); AST/SGOT 29.0 U/L (<34); CALCIUM LEVEL 8.6 MG/DL (8.3-10.6); CARBON DIOXIDE LEVEL 29.0 MMOL/L (20-31); CHLORIDE LEVEL 99.0 MMOL/L (98-107); CREATININE FOR GFR 1.15 MG/DL (0.70-1.30); GLOMERULAR FILTRATION RATE 67.6 (>42); POTASSIUM SERUM 3.8 MMOL/L (3.5-5.1); SODIUM LEVEL 139.0 MMOL/L (136-145)
[2025-03-09] MEDS: LanTUS (INSULIN GLARGINE INJ) 1 UNITS/0.01 ML SC SCH (08:47)
[2025-03-09] MEDS ORDERED: ENOXAPARIN 40 MG/0.4 ML SYRINGE (J1650 PER 10MG) SC SCH (09:00)
[2025-03-09 11:45] VITALS: BP 128/70; TEMP 98.1; O2SAT 95
[2025-03-09 20:44] VITALS: BP 125/70; TEMP 98.4; O2SAT 94
[2025-03-10 04:10] VITALS: BP 117/67; TEMP 98.1; O2SAT 96
[2025-03-10 06:53] LABS: PLATELET COUNT, AUTOMATED 202 10^3/uL (150-450)
[2025-03-10 07:14] LABS: ALT/SGPT 20.0 U/L (7.0-40); AST/SGOT 28.0 U/L (<34); CALCIUM LEVEL 8.6 MG/DL (8.3-10.6); CARBON DIOXIDE LEVEL 25.0 MMOL/L (20-31); CHLORIDE LEVEL 100.0 MMOL/L (98-107); CREATININE FOR GFR 0.92 MG/DL (0.70-1.30); GLOMERULAR FILTRATION RATE 88.4 (>42); POTASSIUM SERUM 3.8 MMOL/L (3.5-5.1); SODIUM LEVEL 138.0 MMOL/L (136-145)
[2025-03-10 08:07] VITALS: BP 128/73
[2025-03-10 11:36] VITALS: BP 112/71; TEMP 97.9; O2SAT 94
[2025-03-21] MEDS ORDERED: MOUNJARO 10 MG/0.5 ML SC SCH (09:00)
== END 2025-03-10 13:04 | disposition home health service (06) | DRG 871 ==
LOC: M ED 06:34 → M ED INP 09:17 → M MSPAV 10:05
PROVIDERS: ADMIT Internal Medicine; ATTEND Internal Medicine
DX: A41.9 Sepsis, unspecified organism (principal); U07.1 COVID-19; I48.20 Chronic atrial fibrillation, unspecified; I10 Essential (primary) hypertension; E11.51 Type 2 diabetes mellitus with diabetic peripheral angiopathy without gangrene; K21.9 Gastro-esophageal reflux disease without esophagitis; E78.5 Hyperlipidemia, unspecified; E11.42 Type 2 diabetes mellitus with diabetic polyneuropathy; R29.6 Repeated falls; Z85.828 Personal history of other malignant neoplasm of skin; Z98.49 Cataract extraction status, unspecified eye; Z79.899 Other long term (current) drug therapy; Z79.82 Long term (current) use of aspirin; Z79.4 Long term (current) use of insulin

== ENCOUNTER → 2025-05-09 | Outpatient (CLI) | payer MEDICARE, OTHER ==
[~2025-05-09] MED LIST changes: +FLEC50HA PO; +LOSA50TA28 PO; +POTA-298 PO; +TIRZ10PE SQ
[2025-05-09 14:34] LABS: BASO # 0.1 10^3/uL (0.0-0.2); BASO % 0.7 % (0.0-1.0); EOS # 0.3 10^3/uL (0.0-0.5); EOS % 2.4 % (0.0-3.0); LYMPH # 1.9 10^3/uL (1.5-5.0); LYMPH % 15.7 % (24.0-44.0); MONO # 0.8 10^3/uL (0.0-0.8); MONO % 6.4 % (2.0-8.0); NEUTROPHILS # 8.8 10^3/uL (1.5-8.5); NEUTROPHILS % 74.5 % (36.0-66.0); PLATELET COUNT, AUTOMATED 247 10^3/uL (150-450)
[2025-05-09 14:40] LABS: ALT/SGPT 18.0 U/L (7.0-40); AST/SGOT 20.0 U/L (<34); CALCIUM LEVEL 8.6 MG/DL (8.3-10.6); CARBON DIOXIDE LEVEL 25.0 MMOL/L (20-31); CHLORIDE LEVEL 98.0 MMOL/L (98-107); CHOLESTEROL LEVEL 103.0 MG/DL (<200); CHOLESTEROL RISK RATIO 4.1 (<5); CREATININE FOR GFR 1.36 MG/DL (0.70-1.30); GLOMERULAR FILTRATION RATE 55.3 (>42); LDL CHOLESTEROL 43.9 MG/DL (<100); NON-HDL-C 77.9 MG/DL; POTASSIUM SERUM 3.6 MMOL/L (3.5-5.1); SODIUM LEVEL 136.0 MMOL/L (136-145); TRIGLYCERIDES LEVEL 170.0 MG/DL (<150)
[2025-05-09 15:08] LABS: ESTIMATED AVERAGE GLUCOSE 192.0 MG/DL (60-110)
== END ==
LOC: M WUC 09:29
PROVIDERS: ATTEND Nurse Practitioner Adult Health
DX: E11.40 Type 2 diabetes mellitus with diabetic neuropathy, unspecified (principal)

== ENCOUNTER 2025-06-05 18:58 | Inpatient (IN) | payer MEDICARE, OTHER ==
[~2025-06-05] VITALS: Ht 182.9 cm; Wt 114.4 kg
[2025-06-05] MEDS ORDERED: ISOVUE-370 76% 100 ML VIAL As Ordered ONE (19:48)
[2025-06-05 19:52] LABS: BASO # 0.0 10^3/uL (0.0-0.2); BASO % 0.3 % (0.0-1.0); EOS # 0.2 10^3/uL (0.0-0.5); EOS % 1.4 % (0.0-3.0); LYMPH # 1.8 10^3/uL (1.5-5.0); LYMPH % 14.3 % (24.0-44.0); MONO # 0.8 10^3/uL (0.0-0.8); MONO % 5.9 % (2.0-8.0); NEUTROPHILS # 9.9 10^3/uL (1.5-8.5); NEUTROPHILS % 77.6 % (36.0-66.0); PLATELET COUNT, AUTOMATED 227 10^3/uL (150-450)
[2025-06-05 20:20] LABS: ETHYL ALCOHOL (ETHANOL) < 0.003 % (0.000-0.010)
[2025-06-05 20:23] LABS: INR 1.32
[2025-06-05] MEDS: NS (Normal Saline) 0.9% 1,000 ML IV ONE (20:25)
[2025-06-05 20:34] LABS: ALT/SGPT 14 U/L (7.0-40); AST/SGOT 15 U/L (<34); CALCIUM LEVEL 8.4 MG/DL (8.3-10.6); CARBON DIOXIDE LEVEL 25 MMOL/L (20-31); CHLORIDE LEVEL 98 MMOL/L (98-107); CREATININE FOR GFR 1.45 MG/DL (0.70-1.30); GLOMERULAR FILTRATION RATE 51.2 (>42); POTASSIUM SERUM 2.8 MMOL/L (3.5-5.1); SODIUM LEVEL 136 MMOL/L (136-145)
[2025-06-05 21:24] LABS: MAGNESIUM LEVEL 2.1 MG/DL (1.8-2.4)
[2025-06-05] MEDS ORDERED: METH-1164 PO (22:12)
[2025-06-05] MEDS: POTASSIUM CHLORIDE 10MEQ SR TABLET PO ONE (22:12)
[2025-06-05 22:18] LABS: KETONE, URINE AUTO RFX NEGATIVE (NEGATIVE); LEUKOCYTE ESTERASE UR AUTO RFX NEGATIVE (NEGATIVE); NITRITE, URINE AUTO RFX NEGATIVE (NEGATIVE); RBC, URINE AUTO RFX 1 /HPF (0-3); SQUAM EPITHELIAL CELL UR AURFX 0 /HPF (0-6); WBC, URINE AUTO RFX 1 /HPF (0-3)
[2025-06-05 22:42] LABS: AMPHETAMINES LEVEL URINE NEGATIVE (NEGATIVE); BARBITURATES URINE NEGATIVE (NEGATIVE); BENZODIAZEPINES URINE NEGATIVE (NEGATIVE); CANNABINOIDS URINE NEGATIVE (NEGATIVE); COCAINE METABOLITE URINE NEGATIVE (NEGATIVE); METHADONE URINE NEGATIVE (NEGATIVE); OPIATES URINE NEGATIVE (NEGATIVE); PHENCYCLIDINE URINE NEGATIVE (NEGATIVE)
[2025-06-05] MEDS ORDERED: ALFU10TA23 PO (23:01)
[2025-06-05] MEDS: FLECAINIDE 50 MG TABLET PO ONE (23:03)
[2025-06-05] MEDS ORDERED: HOME MED LIST COMPLETE! XX SCH (23:05)
[2025-06-06] MEDS ORDERED: GLUCOSE 4 GM CHEW PO PRN (00:25)
[2025-06-06] MEDS ORDERED: GLUCAGON INJ 1 MG VIAL SC PRN (00:25)
[2025-06-06] MEDS ORDERED: DEXTROSE 50% 50 ML SYRINGE IV PRN (00:25)
[2025-06-06 02:10] LABS: PLATELET COUNT, AUTOMATED 191 10^3/uL (150-450)
[2025-06-06] MEDS: NS (Normal Saline) 0.9% 1,000 ML IV SCH (02:32)
[2025-06-06 02:45] LABS: CALCIUM LEVEL 8.0 MG/DL (8.3-10.6); CARBON DIOXIDE LEVEL 26.0 MMOL/L (20-31); CHLORIDE LEVEL 101.0 MMOL/L (98-107); CREATININE FOR GFR 1.35 MG/DL (0.70-1.30); GLOMERULAR FILTRATION RATE 55.8 (>42); POTASSIUM SERUM 2.8 MMOL/L (3.5-5.1); SODIUM LEVEL 138.0 MMOL/L (136-145)
[2025-06-06] MEDS: POTASSIUM CHLORIDE 10MEQ SR TABLET PO ONE ×2 (03:40→09:10)
[2025-06-06] MEDS: dexAMETHasone 4 MG/ML 1 ML VIAL IV SCH (06:01)
[2025-06-06] MEDS ORDERED: DAPAGLIFLOZIN PROPANEDIOL 10 MG TABLET PO SCH (09:00)
[2025-06-06] MEDS ORDERED: CHLORTHALIDONE 25 MG TAB PO SCH (09:00)
[2025-06-06] MEDS ORDERED: POTASSIUM CHLORIDE 10MEQ SR TABLET PO SCH (09:00)
[2025-06-06] MEDS: INSULIN LISPRO (NovoLOG) PER UNIT SC SCH ×2 (09:09→21:00)
[2025-06-06] MEDS: FAMOTIDINE 20 MG TAB PO SCH (09:10)
[2025-06-06] MEDS: ASPIRIN 81 MG ENTERIC TABLET PO SCH (09:10)
[2025-06-06] MEDS: APIXABAN 5 MG TAB PO SCH (09:10)
[2025-06-06] MEDS: FLECAINIDE 50 MG TABLET PO SCH (09:11)
[2025-06-06] MEDS: KCL 10MEQ/100ML SWI (KRUN) 10 MEQ in IV 1 EA IV ONE (09:12)
[2025-06-06] MEDS: KCL 10MEQ/100ML SWI (KRUN) 10 MEQ in IV 1 EA IV SCH (11:55)
[2025-06-06] MEDS ORDERED: CYCLOBENZAPRINE 5 MG TABLET PO PRN (13:35)
[2025-06-06] MEDS: METOPROLOL TART 50 MG TAB PO SCH (13:53)
[2025-06-06] MEDS: LIDOCAINE 5% PATCH TD SCH (13:54)
[2025-06-06] MEDS: ACETAMINOPHEN 500 MG TAB PO SCH (16:53)
[2025-06-06] MEDS: KCL 20MEQ in NS 1000ML 1,000 ML IV SCH (17:42)
[2025-06-06] MEDS: ATORVASTATIN 20 MG TAB PO SCH (21:13)
[2025-06-06] MEDS: FINASTERIDE 5 MG TAB PO SCH (21:15)
[2025-06-06] MEDS: LanTUS (INSULIN GLARGINE INJ) 1 UNITS/0.01 ML SC SCH (21:25)
[2025-06-06 21:50] VITALS: BP 120/70; TEMP 97.8; O2SAT 96
[2025-06-07 00:10] VITALS: BP 111/74; TEMP 97.8; O2SAT 94
[2025-06-07 05:52] LABS: BASO # 0.0 10^3/uL (0.0-0.2); BASO % 0.1 % (0.0-1.0); EOS # 0.0 10^3/uL (0.0-0.5); EOS % 0.1 % (0.0-3.0); LYMPH # 1.0 10^3/uL (1.5-5.0); LYMPH % 8.9 % (24.0-44.0); MONO # 0.4 10^3/uL (0.0-0.8); MONO % 3.1 % (2.0-8.0); NEUTROPHILS # 9.9 10^3/uL (1.5-8.5); NEUTROPHILS % 87.1 % (36.0-66.0); PLATELET COUNT, AUTOMATED 208 10^3/uL (150-450)
[2025-06-07 06:15] LABS: CALCIUM LEVEL 8.5 MG/DL (8.3-10.6); CARBON DIOXIDE LEVEL 20.0 MMOL/L (20-31); CHLORIDE LEVEL 108.0 MMOL/L (98-107); CREATININE FOR GFR 1.24 MG/DL (0.70-1.30); GLOMERULAR FILTRATION RATE 61.8 (>42); POTASSIUM SERUM 4.0 MMOL/L (3.5-5.1); SODIUM LEVEL 141.0 MMOL/L (136-145)
[2025-06-07 07:40] VITALS: BP 142/77; TEMP 97.2; O2SAT 94
[2025-06-07] MEDS: METOPROLOL TART 50 MG TAB PO SCH (12:06)
[2025-06-07 16:02] VITALS: BP 122/67; TEMP 96.9; O2SAT 93
[2025-06-07 20:08] VITALS: BP 114/76; TEMP 97.1; O2SAT 94
[2025-06-08 04:10] VITALS: BP 109/82; TEMP 97; O2SAT 18; O2SAT 98
[2025-06-08 06:17] LABS: CALCIUM LEVEL 8.8 MG/DL (8.3-10.6); CARBON DIOXIDE LEVEL 26.0 MMOL/L (20-31); CHLORIDE LEVEL 103.0 MMOL/L (98-107); CREATININE FOR GFR 1.26 MG/DL (0.70-1.30); GLOMERULAR FILTRATION RATE 60.6 (>42); POTASSIUM SERUM 4.3 MMOL/L (3.5-5.1); SODIUM LEVEL 140.0 MMOL/L (136-145)
[2025-06-08 07:50] VITALS: BP 123/75; TEMP 97.6; O2SAT 97
[2025-06-08] MEDS ORDERED: PILL CUTTER 1 EACH XX PRN (08:35)
[2025-06-08] MEDS: FLECAINIDE 50 MG TABLET PO SCH (09:36)
[2025-06-08 12:07] VITALS: BP 121/79; TEMP 97.1; O2SAT 97
[2025-06-08] MEDS: DIGOXIN 0.25 MG TAB PO SCH (12:56)
[2025-06-08 16:05] VITALS: BP 124/72; TEMP 97.4; O2SAT 94
[2025-06-08 20:35] VITALS: BP 147/88; TEMP 97.2; O2SAT 95
[2025-06-08 23:09] VITALS: BP 134/79; TEMP 97; O2SAT 97
[2025-06-09 04:56] VITALS: BP 130/82; TEMP 97.3; O2SAT 96
[2025-06-09 05:56] LABS: BASO # 0.0 10^3/uL (0.0-0.2); BASO % 0.3 % (0.0-1.0); EOS # 0.0 10^3/uL (0.0-0.5); EOS % 0.1 % (0.0-3.0); LYMPH # 2.4 10^3/uL (1.5-5.0); LYMPH % 18.4 % (24.0-44.0); MONO # 0.8 10^3/uL (0.0-0.8); MONO % 6.1 % (2.0-8.0); NEUTROPHILS # 9.7 10^3/uL (1.5-8.5); NEUTROPHILS % 74.0 % (36.0-66.0); PLATELET COUNT, AUTOMATED 252 10^3/uL (150-450)
[2025-06-09 06:26] LABS: CALCIUM LEVEL 8.6 MG/DL (8.3-10.6); CARBON DIOXIDE LEVEL 28.0 MMOL/L (20-31); CHLORIDE LEVEL 100.0 MMOL/L (98-107); CREATININE FOR GFR 1.25 MG/DL (0.70-1.30); GLOMERULAR FILTRATION RATE 61.2 (>42); POTASSIUM SERUM 3.6 MMOL/L (3.5-5.1); SODIUM LEVEL 139.0 MMOL/L (136-145)
[2025-06-09 07:43] VITALS: BP 122/72; TEMP 97.6; O2SAT 96
[2025-06-09] MEDS: POTASSIUM CHLORIDE 10MEQ SR TABLET PO ONE (08:46)
[2025-06-09] MEDS ORDERED: METO100T5 PO (10:21)
[2025-06-09] MEDS ORDERED: FINA5TAB2 PO (10:21)
[2025-06-09] MEDS ORDERED: POTA-298 PO (10:21)
[2025-06-09] MEDS ORDERED: LIDO1PAD TOP (10:21)
[2025-06-09] MEDS ORDERED: DIGO0.123 PO (10:25)
[2025-06-09 12:10] VITALS: BP 122/72
== END 2025-06-09 12:59 | disposition home health service (06) | DRG 552 ==
LOC: EDBD 18:58 → M ED 18:58 → M ED INP 23:59 → M PCU 06-06 21:46
PROVIDERS: ADMIT Student in an Organized Health Care Education/Training Program; ATTEND Internal Medicine
DX: S22.080A Wedge compression fracture of T11-T12 vertebra, initial encounter for closed fracture (principal); I50.30 Unspecified diastolic (congestive) heart failure; N17.9 Acute kidney failure, unspecified; R55 Syncope and collapse; E11.51 Type 2 diabetes mellitus with diabetic peripheral angiopathy without gangrene; E11.40 Type 2 diabetes mellitus with diabetic neuropathy, unspecified; I11.0 Hypertensive heart disease with heart failure; E78.5 Hyperlipidemia, unspecified; I48.91 Unspecified atrial fibrillation; R33.9 Retention of urine, unspecified; I95.9 Hypotension, unspecified; R29.6 Repeated falls; K21.9 Gastro-esophageal reflux disease without esophagitis; D72.829 Elevated white blood cell count, unspecified; Z79.01 Long term (current) use of anticoagulants; R19.7 Diarrhea, unspecified; A08.4 Viral intestinal infection, unspecified; E87.6 Hypokalemia; E86.0 Dehydration; Z79.899 Other long term (current) drug therapy; Z79.82 Long term (current) use of aspirin; N40.0 Benign prostatic hyperplasia without lower urinary tract symptoms; W18.30XA Fall on same level, unspecified, initial encounter; Y92.009 Unspecified place in unspecified non-institutional (private) residence as the place of occurrence of the external cause